=== PATIENT | male | born 1935 | race Caucasian/White ===

== ENCOUNTER → 2016-12-22 | Outpatient (CLI) | payer OTHER ==
[~2016-12-22] MED LIST: ASPI81TA82 PO; ATOR40TA PO; CEPH500C3 PO; FLUO10TA PO; HYDR-2768 PO; HYDR-3533 PO; LOSA50TA PO; RIVA20 PO
--- NOTE | 2017-01-01 10:29 | RSPPFT ---
DATE OF PROCEDURE: 12/22/16 COMMENTS: VOLUMES DYNAMIC: FVC normal; FEV1 mildly reduced. STATIC: TLC, RV and FRC normal. FLOWS: FEV1% moderately reduced; FEF 25-75 severely reduced. DIFFUSION: Moderately reduced. FLOW VOLUME LOOP: Pattern of variable intrathoracic airways obstruction. IMPRESSION: Moderately severe obstructive ventilator defect with no significant hyperinflation but with a moderate reduction in diffusion. Airways resistance is increased. Significant improvement post-bronchodilator.
== END ==
LOC: PHRSP 08:30
PROVIDERS: ATTEND Internal Medicine
DX: J44.9 Chronic obstructive pulmonary disease, unspecified (principal)
CPT/HCPCS: 94060; 94620; 94726; 94729

== ENCOUNTER 2017-04-22 10:25 | Inpatient (IN) | payer OTHER, MEDICARE ==
[2017-04-22] VITALS (14 sets, daily range): BP systolic 144–238; BP diastolic 65–109; PULSE 72–90; RESP 16–21; TEMP 97.7–99.7; O2SAT 96–100
[2017-04-22] MEDS ORDERED: SODIUM CHLOR 0.9% 1000 ML INJ 1,000 ML IV ONE ×2 (10:26→16:45)
[2017-04-22] MEDS ORDERED: ATOR40TA16 PO (10:51)
[2017-04-22] MEDS ORDERED: LOSA50TA PO (10:51)
[2017-04-22] MEDS ORDERED: HYDR25TA5 PO (10:51)
[2017-04-22] MEDS ORDERED: FLUO10TA PO (10:51)
[2017-04-22] MEDS ORDERED: ASPI-516 CHEW (10:51)
[2017-04-22] MEDS ORDERED: XARE20TA PO (10:51)
[2017-04-22 10:52] LABS: AUTOMATED NEUTROPHIL # 3.9 TH/MM3 (1.8-7.7); BASOPHIL # 0.1 TH/MM3 (0-0.2); BASOPHIL % 0.9 % (0.0-2.0); EOSINOPHIL # 0.2 TH/MM3 (0-0.4); EOSINOPHIL % 3.6 % (0.0-4.0); HEMATOCRIT 36.6 % (39.0-51.0); HEMO FLAGS DIFF FINAL; LYMPH % 20.2 % (9.0-44.0); LYMPHOCYTE # 1.3 TH/MM3 (1.0-4.8); MEAN CELL VOLUME 90.7 FL (80.0-100.0); MEAN CORPUSCULAR HEMOGLOBIN 31.9 PG (27.0-34.0); MEAN CORPUSCULAR HGB CONC 35.1 % (32.0-36.0); MONO % 13.9 % (0.0-8.0); NEUT % 61.4 % (16.0-70.0); PLATELET COUNT 192 TH/MM3 (150-450); RED BLOOD COUNT 4.03 MIL/MM3 (4.50-5.90); RED CELL DISTRIBUTION WIDTH 13.3 % (11.6-17.2); WHITE BLOOD COUNT 6.3 TH/MM3 (4.0-11.0)
[2017-04-22 10:53] LABS: I-STAT POTASSIUM 3.5 MMOL/L (3.5-4.9); I-STAT SODIUM 139 MMOL/L (138-146)
[2017-04-22] MEDS ORDERED: IODIXANOL 320 MG/ML 10 ML VIAL (for Rad CT) IVCONTRAST ONE (10:53)
--- NOTE | 2017-04-22 10:54 | RADRPT ---
EXAM DATE/TIME: 04/22/2017 10:25 [facility] COMPARISON: No previous studies available for comparison. INDICATIONS : Aphagia, left-sided gaze, right side weakness. RADIATION DOSE: 64.83 CTDIvol (mGy) This report was called by Dr. Macedo to Dr. Flores at 1049 MEDICAL HISTORY : Stroke. Carcinoma, colon. Hypertension. SURGICAL HISTORY : Tonsillectomy. ENCOUNTER: Initial ACUITY: 1 day PAIN SCALE: Non-responsive LOCATION: cranial TECHNIQUE: Multiple contiguous axial images were obtained of the head. Using automated exposure control and adj ustment of the mA and/or kV according to patient size, radiation dose was kept as low as reasonably a chievable to obtain optimal diagnostic quality images. DICOM format image data is available electro nically for review and comparison. FINDINGS: There is no evidence of intracranial hemorrhage or mass. There is extensive chronic ischemic change w ith white matter hypodensity diffusely and areas of encephalomalacia in the right frontal and right p arietal regions as well as multiple bilateral basal ganglia lacunar infarcts which all appear old. Th e ventricles are symmetric and normal. The extracranial structures are grossly benign and intact. CONCLUSION: No acute intracranial findings. Extensive chronic ischemic sequela Obi Macedo MD on April 22, 2017 at 10:51 Board Certified Radiologist. This report was verified electronically.
[2017-04-22] MEDS ORDERED: ASPIRIN 300 MG SUPP RECTAL ONE (11:00)
[2017-04-22] MEDS ORDERED: SODIUM CHLORID 0.9% 500 ML INJ 300 ML IV ONE (11:00)
[2017-04-22] MEDS ORDERED: niCARdipine INJ 25 MG in SODIUM CHLOR 0.9% 250 ML INJ 240 ML IV PRN ×2 (11:00→14:00)
[2017-04-22 11:06] LABS: APTT (PATIENT) 62.9 SEC (24.3-30.1); INTERNATIONAL NORMALIZED RATIO 1.5 RATIO; PROTHROMBIN TIME - PATIENT 15.2 SEC (9.8-11.6)
--- NOTE | 2017-04-22 11:07 | RADRPT ---
EXAM DATE/TIME: 04/22/2017 10:25 [facility] COMPARISON: CT BRAIN W/O CONTRAST, April 22, 2017, 10:25. INDICATIONS : Stroke alert; aphagia, right sided weakness. IV CONTRAST: 46 cc Visipaque (iodixanol) IV ; Cumulative dose for multiple exams. RADIATION DOSE: 14.23 CTDIvol (mGy) ; Combined studies MEDICAL HISTORY : Stroke. Carcinoma, colon. Hypertension. SURGICAL HISTORY : Tonsillectomy. ENCOUNTER: Initial ACUITY: 1 day PAIN SCALE: Non-responsive LOCATION: cranial TECHNIQUE: Volumetric scanning was performed using a multi-row detector CT scanner. The data was post processed with a variety of visualization algorithms including full volume maximum intensity projection, multi -planar sliding thin slab reformation, curved planar reformation, and surface rendering techniques. Using automated exposure control and adjustment of the mA and/or kV according to patient size, radiat ion dose was kept as low as reasonably achievable to obtain optimal diagnostic quality images. DICO M format image data is available electronically for review and comparison. FINDINGS: The left middle cerebral artery is occluded just proximal to the trifurcation region. There is faint reconstitution of flow in distal MCA branch vessels. The contralateral right MCA is normal in appeara nce. The anterior cerebrals are intact and unremarkable. The posterior circulation vessels are intact with note of origin of the right posterior cerebral artery. CONCLUSION: Left MCA occlusion. Findings were reported to Dr. Flores and Dr. Kate at 1100 hrs. Obi Macedo MD on April 22, 2017 at 11:00 Board Certified Radiologist. This report was verified electronically.
--- NOTE | 2017-04-22 11:09 | RADRPT ---
EXAM DATE/TIME: 04/22/2017 10:32 [facility] COMPARISON: No previous studies available for comparison. INDICATIONS : Stroke alert; aphagia, right side weakness. IV CONTRAST: 48 cc Visipaque (iodixanol) IV ; Cumulative dose for multiple exams. RADIATION DOSE: 14.23 CTDIvol (mGy) ; Combined studies MEDICAL HISTORY : Stroke. Carcinoma, colon. Hypertension. SURGICAL HISTORY : Tonsillectomy. ENCOUNTER: Initial ACUITY: 1 day PAIN SCALE: Non-responsive LOCATION: neck Elevated flow velocities and ICA/CCA ratios have been found to correlate with increased degrees of vessel stenosis, calculated as percentage of diameter relative to a normal segment of distal ICA/CCA. TECHNIQUE: Volumetric scanning was performed using a multirow detector CT scanner. The data was post processed with a variety of visualization algorithms including full-volume maximum intensity projection, multip lanar sliding thin-slab reformation, curved-planar reformation, and surface-rendering techniques. Us ing automated exposure control and adjustment of the mA and/or kV according to patient size, radiatio n dose was kept as low as reasonably achievable to obtain optimal diagnostic quality images. DICOM f ormat image data is available electronically for review and comparison. FINDINGS: AORTIC ARCH: There is a three-vessel origin of the great vessels from the aorta. No evidence of ostial narrowing. RIGHT CAROTID: The common carotid artery is intact. The carotid bulb has a normal configuration without ulceration o r narrowing. The internal carotid artery lumen is smooth without stenosis. The external carotid avery ry is intact. LEFT CAROTID: The common carotid artery is intact. The carotid bulb has a normal configuration without ulceration or narrowing. The internal carotid artery lumen is smooth without stenosis. The external carotid ar milvia is intact. VERTEBRALS: The vertebral arteries have a symmetric diameter. No stenotic lesions are seen. CONCLUSION: No evidence of significant carotid stenosis Obi Macedo MD on April 22, 2017 at 11:05 Board Certified Radiologist. This report was verified electronically.
--- NOTE | 2017-04-22 11:10 | PD ---
HPI Chief Complaint: Stroke Alert Time Seen by Provider: 10:26 Travel History International Travel<30 days: No Contact w/Intl Traveler<30days: No History of Present Illness HPI Patient's 82-year-old male with a history of stroke approximately 30 years ago leaving no residual deficits presents emergency department for evaluation of dense right-sided deficits as well as dense aphasia and preference for left gauge was started approximately 20 minutes prior to arrival. The patient does take Xarelto for atrial fibrillation. He is unable to provide any additional history at all. EMS does report that the patient recently had a melanoma extracted from his scalp. He also has a history of colon cancer and resection which was years ago according to his . PFSH Past Medical History Hx Anticoagulant Therapy: Yes (Xarelto) Arthritis: Yes Atrial Fibrillation: Yes Cancer: Yes (COLON 2010) Cardiovascular Problems: Yes (AF) High Cholesterol: Yes COPD: Yes Cerebrovascular Accident: Yes (1994) Diminished Hearing: No Endocrine: No Gastrointestinal Disorders: Yes (COLON CANCER) GERD: Yes Genitourinary: No Hypertension: Yes Immune Disorder: No Musculoskeletal: Yes Psychiatric: No Reproductive: No Respiratory: Yes Sleep Apnea: No Past Surgical History Abdominal Surgery: Yes (PARTIAL RESECTION OF COLON) Cholecystectomy: Yes Eye Surgery: Yes (LEFT CATARACT REMOVED) Oral Surgery: Yes (TONSILLECTOMY) Tonsillectomy: Yes Other Surgery: Yes (HYDROCEOLE SURGERY) Social History Alcohol Use: Yes (4 BEERS DAILY) Tobacco Use: No Substance Use: No Allergies-Medications (Allergen,Severity, Reaction): Coded Allergies: penicillin G (Unverified Allergy, Severe, RASH, 04/22/17) Reported Meds & Prescriptions Reported Meds & Active Scripts Active Reported Xarelto (Rivaroxaban) 20 Mg Tab 20 Mg PO DAILY Losartan (Losartan Potassium) 50 Mg Tab 50 Mg PO BID Hydrochlorothiazide 25 Mg Tab 25 Mg PO DAILY Fluoxetine (Fluoxetine HCl) 10 Mg Tab 10 Mg PO DAILY Atorvastatin (Atorvastatin Calcium) 40 Mg Tab 40 Mg PO HS Aspirin 81 Mg Chew 81 Mg CHEW DAILY Review of Systems ROS Limitations: Altered Mental Status Physical Exam Narrative GENERAL: Well-developed well-nourished. SKIN: Focused skin assessment warm/dry. HEAD: Atraumatic. Normocephalic. EYES: Pupils equal and round. No scleral icterus. No injection or drainage. ENT: No nasal bleeding or discharge. Mucous membranes pink and moist. NECK: Trachea midline. No JVD. CARDIOVASCULAR: Regular rate and rhythm. No murmur appreciated. RESPIRATORY: No accessory muscle use. Clear to auscultation. Breath sounds equal bilaterally. GASTROINTESTINAL: Abdomen soft, non-tender, nondistended. Hepatic and splenic margins not palpable. MUSCULOSKELETAL: No obvious deformities. No clubbing. No cyanosis. No edema. NEUROLOGICAL: Awake and alert. Patient will move his head from side to side but prefers left gaze and external rotation of the left. He has dense paralysis of the right upper and right lower extremity was 0 out of 5 strength. DTRs could not be elicited over the patella nor brachials. The patient does have some purposeful movements of his left upper left lower extremity but is not able to follow commands. He is densely aphasic. No obvious facial asymmetry is seen but the patient will not follow extraocular movements are commands for cranial nerve exam. He does swallow from time to time. His eyes are wide open and from time to time he appears to have some tracking of me around the room. PSYCHIATRIC: Appropriate mood and affect; insight and judgment normal. Data Data Last Documented VS Vital Signs Date Time Temp Pulse Resp B/P (MAP) Pulse Ox O2 Delivery O2 Flow Rate FiO2 04/22/17 11:14 78 16 238/105 (149) 98 Room Air 04/22/17 10:28 21 Orders Orders Activity Bed Rest (04/22/17 ) Electrocardiogram (04/22/17 ) I-Stat Creatinine (04/22/17 10:26) I-Stat Profile (04/22/17 10:26) Prothrombin Time / Inr (Pt) (04/22/17 10:26) Act Partial Throm Time (Ptt) (04/22/17 10:26) Complete Blood Count With Diff (04/22/17 10:26) Fibrinogen (04/22/17 10:26) Creatine Kinase (Cpk) (04/22/17 10:26) Troponin I (04/22/17 10:26) Drug Screen, Random Urine (04/22/17 10:26) Type And Screen (04/22/17 10:26) Ct Brain W/O Iv Contrast(Rout) (04/22/17 ) Cta Brain W Iv Contrast W 3d (04/22/17 10:26) Cta Neck W Iv Contrast W 3d (04/22/17 10:26) Consult Neurology (04/22/17 ) Blood Glucose (04/22/17 10:26) Ecg Monitoring (04/22/17 10:26) Neuro Checks Q2HX12,Q4H (04/22/17 10:26) Nursing Bedside Swallow Assess .ONCE (04/22/17 10:26) Iv Access Insert/Monitor (04/22/17 10:26) NPO (04/22/17 10:26) Oximetry (04/22/17 10:26) Oxygen Administration (04/22/17 10:26) Sodium Chlor 0.9% 1000 Ml Inj (Ns 1000 M (04/22/17 10:26) Resp Oxygen Sandeep C Titrat 1-4 L (04/22/17 10:26) Cath For Specimen (04/22/17 10:26) Iodixanol 320 Inj (Rad Ct) (Visipaque 32 (04/22/17 10:53) Sodium Chlorid 0.9% 500 Ml Inj (Ns 500 M (04/22/17 11:00) Nicardipine Inj (Cardene Inj) (04/22/17 11:00) Aspirin Supp (Aspirin Supp) (04/22/17 11:00) (Hub Use Only)Inp Phy Cons/Ref (04/22/17 ) Verapamil Inj (Isoptin Inj) (04/22/17 11:16) Admit Order (Ed Use Only) (04/22/17 ) Angiogram, Cerebral Wo Arch (04/22/17 ) Labs Laboratory Tests Test 04/22/17 10:20 White Blood Count 6.3 TH/MM3 Red Blood Count 4.03 MIL/MM3 Hemoglobin 12.8 GM/DL Bedside Hemoglobin 13.3 G/DL Hematocrit 36.6 % Bedside Hematocrit 39.0 % Mean Corpuscular Volume 90.7 FL Mean Corpuscular Hemoglobin 31.9 PG Mean Corpuscular Hemoglobin Concent 35.1 % Red Cell Distribution Width 13.3 % Platelet Count 192 TH/MM3 Mean Platelet Volume 8.5 FL Neutrophils (%) (Auto) 61.4 % Lymphocytes (%) (Auto) 20.2 % Monocytes (%) (Auto) 13.9 % Eosinophils (%) (Auto) 3.6 % Basophils (%) (Auto) 0.9 % Neutrophils # (Auto) 3.9 TH/MM3 Lymphocytes # (Auto) 1.3 TH/MM3 Monocytes # (Auto) 0.9 TH/MM3 Eosinophils # (Auto) 0.2 TH/MM3 Basophils # (Auto) 0.1 TH/MM3 CBC Comment DIFF FINAL Differential Comment Prothrombin Time 15.2 SEC Prothromb Time International Ratio 1.5 RATIO Activated Partial Thromboplast Time 62.9 SEC Fibrinogen 480 mg/dL Bedside Sodium 139 MMOL/L Bedside Potassium 3.5 MMOL/L Bedside Chloride 101 MMOL/L Bedside Blood Urea Nitrogen 20 MG/DL Bedside Creatinine 1.0 MG/DL Bedside Glucose 138 MG/DL Total Creatine Kinase 39 U/L Troponin I LESS THAN 0.02 NG/ML [facility] Medical Screen Exam Complete: Yes Emergency Medical Condition: Yes Differential Diagnosis Acute ischemic stroke, acute hemorrhagic stroke, lecture led abnormality, Xarelto status, TIA Narrative Course Patient 82-year-old male roomed emerged permit a stroke alert, and NIH score is 24. He has severe deficits. Unfortunately will not be a candidate for TPA as the patient is on Xarelto. Patient discussed with Dr. Kate at 10:30 AM he agrees the patient will not be a candidate for TPA. Noncontrast CT discussed with Dr. Macedo negative. CT angios was performed and the patient does have left MCA occlusion. After discussion with the patient's Dr. Kate and Dr. Macedo the plan is for IR intervention. The patient was taken to interventional radiology at 11:05 AM. Patient discussed with Dr. Ng for admission to [facility]. Critical Care Narrative Aggregate critical care time was 35 minutes. Time to perform other separately billable procedures was not included in the critical care time. My time did not include minutes spent treating any other patients simultaneously or on activities that did not directly contribute to the patient's treatment. The services I provided to this patient were to treat and/or prevent clinically significant deterioration that could result in: , permanent disability, intracranial hemorrhage, I provided critical care services requiring my management, as noted below: Chart data review, documentation time, medication orders and management, vital sign assessments/reviewing monitor data, ordering and reviewing lab tests, ordering and interpreting/reviewing x-rays and diagnostic studies, care of the patient and discussion of the patient with the admitting physicians. Stroke Alert NIHSS NIH Stroke Scale Result: 24 NIHSS Time Completed: 10:30 Thrombolytic Contraindications Contraindications Comment: Patient on Xarelto Diagnosis Diagnosis: Primary Impression: Arterial ischemic stroke, MCA (middle cerebral artery), left, acute Admitting Physician Requests: Admit Condition: Stable Jason Flores MD Apr 22, 2017 11:10
[2017-04-22] MEDS ORDERED: VERAPAMIL HCL 5 MG/2 ML VIAL ONE (11:16)
[2017-04-22 11:18] LABS: CREATINE KINASE 39 U/L (39-308)
--- NOTE | 2017-04-22 11:40 | MB ---
cc: MARISOLFERMIN DATE OF CONSULTATION 04/22/2017 REASON FOR CONSULTATION This is an 82-year-old right-handed man with hypertension, atrial fibrillation on Xarelto, hypercholesterolemia, colon cancer in 2010 without mets, squamous cells superficial two weeks ago taken off his forehead. He had a stroke 30 years ago, a small stroke according to his . About 10:30 this morning or so, she was out with him and then he seemed to be not acting right and they came into the ER with right hemiparesis, left gaze, driven aphasia and CTA which showed an occlusion of the left middle cerebral artery. As such, we have just sent him down to intervention for clot extraction. REVIEW OF SYSTEMS According to his , no diabetes, RI, stent, CABG, renal, hepatic, or pulmonary disease, thyroid disease lupus, ulcer, seizure. SOCIAL HISTORY He is not a smoker. He has three drinks a day. Lives with his . FAMILY HISTORY Negative cancer, seizure, or stroke. MEDICATIONS He does take the Xarelto. In the past, he was on Lovastatin, but unclear what his current meds beyond the Xarelto. PHYSICAL EXAM On exam, tele shows A. fib, blood pressure 238/102, just started on a Cardene drip. It is getting a little bit lower. 18 and 76. NECK: No carotid bruits. HEART: Regular rhythm. I do not detect a murmur. NEUROLOGIC: His eyes are driven over to the left. He has some puffiness of the right cheek when he exhales. He is 0/5 in the right upper extremity, 1/5 in the right lower extremity. He moves the left upper extremity spontaneously and a little bit on the left lower extremity. The left toe was down, the right is up. Head is turned to the left, eyes are deviated to the left. LABORATORY DATA CBC is normal. His basic metabolic profile is normal. Creatinine is 1. His CK and troponin are pending. Coags pending. CT scan of the brain was read as negative. Review of the CT, he has an old right posterior MCA infarct and white matter infarct on the right MCA territory extending cortically, some white matter changes on the left. Head CTA, left middle cerebral artery occlusion, faint reconstitution distally, right MCA is normal, posterior arteries normal. Neck CTA, normal. Review of the CTA of the neck. He does have some calcification of the internal carotid artery at its origin. There looks to be no major stenosis, I would say less than 50%, however and it is unclear if there is some calcification of the internal carotid artery intracranially or not. IMPRESSION Left MCA infarct with clot on Xarelto with a history of A. fib and a large left MCA clinical presentation. His NIH stroke scale on referral appears to be as high as 17. We did talk to his and we are going to send him down and try to extract the clot as I think that is his only hope of having any kind of significant recovery at this point. MD MERI Gill/LAVELLE /11:09 AM /11:25 AM
[2017-04-22] MEDS ORDERED: IODIXANOL 320 MG/ML 50 ML VIAL (for RAD SPEC) I-ARTERIAL ONE (12:07)
[2017-04-22] MEDS ORDERED: GLUCAGON 1 MG/ML VIAL OTHER PRN ×2 (12:15→12:45)
[2017-04-22] MEDS ORDERED: LABETALOL HCL 100 MG/20 ML VIAL IV PUSH PRN (12:15)
[2017-04-22] MEDS ORDERED: DEXTROSE 50% IN WATER 50 ML VIAL(D50) IV PUSH PRN ×2 (12:15→12:45)
[2017-04-22] MEDS ORDERED: SENNOSIDES 8.6 MG TAB PO PRN (12:30)
[2017-04-22] MEDS ORDERED: SODIUM CHLORIDE 0.9% FLUSH 10 ML FLUSH IV FLUSH PRN (12:30)
[2017-04-22] MEDS ORDERED: LACTULOSE SYRUP 20 GM/30 ML CUP PO PRN (12:30)
[2017-04-22] MEDS ORDERED: BISACODYL 10 MG SUPP RECTAL PRN (12:30)
[2017-04-22] MEDS ORDERED: ONDANSETRON HCL 4 MG/2 ML VIAL IV PUSH PRN (12:30)
[2017-04-22] MEDS ORDERED: MISCELLANEOUS NURSING INFORMATION XX SCH (12:30)
[2017-04-22] MEDS ORDERED: MORPHINE SULFATE 4 MG/ML INJ IV PUSH PRN (12:30)
[2017-04-22] MEDS ORDERED: MAGNESIUM HYDROXIDE SUSP 30 ML CUP PO PRN (12:30)
[2017-04-22] MEDS ORDERED: RESP: ALBUTEROL 2.5 MG/3 ML NEB (PRN) INH (12:30)
[2017-04-22] MEDS ORDERED: CHLORHEXIDINE GLUCONATE 2 % 1 PACK (2 CLOTHS) TOP PRN (12:30)
[2017-04-22] MEDS ORDERED: ACETAMINOPHEN/HYDROcodone 325 MG/5 MG TAB PO PRN (12:30)
--- NOTE | 2017-04-22 12:36 | HHI.HP ---
[facility] Service Critical Care Medicine Primary Care Physician Chucky Cortez MD Admission Diagnosis Acute Left MCA Stroke Diagnosis: (1) Arterial ischemic stroke, MCA (middle cerebral artery), left,acute Diagnosis: Principal (2) Hypertensive emergency without congestive heart failure Diagnosis: Principal (3) Chronic kidney disease, stage II (mild) Diagnosis: Secondary (4) Anxiety Diagnosis: Secondary (5) Erectile dysfunction Diagnosis: Secondary (6) Gastroesophageal reflux disease Diagnosis: Secondary (7) History of colon cancer Diagnosis: Secondary (8) Normocytic anemia Diagnosis: Secondary (9) History of CVA with residual deficit Diagnosis: Secondary (10) COPD (chronic obstructive pulmonary disease) Diagnosis: Secondary (11) Elevated partial thromboplastin time (PTT) Diagnosis: Principal (12) Elevated INR Diagnosis: Principal (13) Dyslipidemia Diagnosis: Principal (14) Hypercoagulable state, primary Diagnosis: Principal (15) Coronary artery disease Diagnosis: Secondary Chief Complaint: Presents after acute onset of weakness 10:30 AM today Travel History International Travel<30 Days: No Contact w/Intl Traveler <30 Da: No Traveled to Known Affected Are: No Sepsis Criteria Criteria Outcome: Meets SIRS criteria History of Present Illness This is an 82-year-old male. Date of admission 04/22/2017. 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 He presents to [facility] today as a stroke alert. Evaluated by Dr. Kate/neurology. Symptoms included right-sided hemiparesis with a left-sided gaze. Patient was hypertensive and started on nicardipine drip. Given 300 mg aspirin per rectum 1. CT brain revealed chronic ischemic changes including right frontal/parietal and cephalization old right lateral basal ganglia CVA. CT angiogram of the brain revealed occlusion the left MCA at its proximal trifurcation. origin of right [employer]OPS. Patient is brought back intervention radiology for possible stent retrieval Review of Systems ROS Limitations: Altered Mental Status Past Family Social History Allergies: Coded Allergies: penicillin G (Unverified Allergy, Severe, RASH, 04/22/17) Past Medical History Hypercoagulable state Hypertension Chronic atrial fibrillation Dyslipidemia History of colon cancer History melanoma/SCC? COPD Gastroesophageal reflux disease Depression/anxiety Chronic kidney disease stage II ED Shingles History of right frontoparietal in bilateral basal ganglia CVA with residual left upper extremity weakness/paresthesias Past Surgical History Left cataract T&A Colon resection Cholecystectomy Hydrocele Reported Medications Xarelto (Rivaroxaban) 20 Mg Tab 20 Mg PO DAILY Losartan (Losartan Potassium) 50 Mg Tab 50 Mg PO BID Hydrochlorothiazide 25 Mg Tab 25 Mg PO DAILY Fluoxetine (Fluoxetine HCl) 10 Mg Tab 10 Mg PO DAILY Atorvastatin (Atorvastatin Calcium) 40 Mg Tab 40 Mg PO HS Aspirin 81 Mg Chew 81 Mg CHEW DAILY Active Ordered Medications Reviewed in EMR Family History Positive for hypertension Social History 4 beers daily. Prior tobacco use. No IV drug use. Physical Exam Vital Signs Vital Signs Date Time Temp Pulse Resp B/P (MAP) Pulse Ox O2 Delivery O2 Flow Rate FiO2 04/22/17 11:14 78 16 238/105 (149) 98 Room Air 04/22/17 11:08 220/98 04/22/17 10:51 76 18 229/109 (149) 97 Room Air 04/22/17 10:37 97 Room Air 04/22/17 10:37 76 16 238/102 (147) 97 04/22/17 10:28 98 21 Physical Exam GENERAL: This is an 82-year-old male, resting in bed SKIN: Warm and dry. HEAD: Atraumatic. Normocephalic. EYES: Pupils equal and round. No scleral icterus. No injection or drainage. ENT: No nasal bleeding or discharge. Mucous membranes pink and moist. NECK: Trachea midline. No JVD. CARDIOVASCULAR: Regular rate and rhythm. RESPIRATORY: No accessory muscle use. Clear to auscultation. Breath sounds equal bilaterally. GASTROINTESTINAL: Abdomen soft, non-tender, nondistended. Hepatic and splenic margins not palpable. MUSCULOSKELETAL: Extremities without clubbing, cyanosis, or edema. No obvious deformities. NEUROLOGICAL: Awake and alert. No obvious cranial nerve deficits. Motor grossly within normal limits. Five out of 5 muscle strength in the arms and legs. Normal speech. PSYCHIATRIC: Appropriate mood and affect; insight and judgment normal. Laboratory Laboratory Tests Test 04/22/17 10:20 White Blood Count 6.3 Red Blood Count 4.03 Hemoglobin 12.8 Bedside Hemoglobin 13.3 Hematocrit 36.6 Bedside Hematocrit 39.0 Mean Corpuscular Volume 90.7 Mean Corpuscular Hemoglobin 31.9 Mean Corpuscular Hemoglobin Concent 35.1 Red Cell Distribution Width 13.3 Platelet Count 192 Mean Platelet Volume 8.5 Neutrophils (%) (Auto) 61.4 Lymphocytes (%) (Auto) 20.2 Monocytes (%) (Auto) 13.9 Eosinophils (%) (Auto) 3.6 Basophils (%) (Auto) 0.9 Neutrophils # (Auto) 3.9 Lymphocytes # (Auto) 1.3 Monocytes # (Auto) 0.9 Eosinophils # (Auto) 0.2 Basophils # (Auto) 0.1 CBC Comment DIFF FINAL Differential Comment Prothrombin Time 15.2 Prothromb Time International Ratio 1.5 Activated Partial Thromboplast Time 62.9 Fibrinogen 480 Bedside Sodium 139 Bedside Potassium 3.5 Bedside Chloride 101 Bedside Blood Urea Nitrogen 20 Bedside Creatinine 1.0 Bedside Glucose 138 Total Creatine Kinase 39 Troponin I LESS THAN 0.02 Result Diagram: 04/22/17 1020 Imaging Last Impressions Neck CTA 04/22/17 1026 Signed Impressions: Service Date/Time: March 10:32 - CONCLUSION: No evidence of significant carotid stenosis Obi Macedo MD Head CTA 04/22/17 1026 Signed Impressions: Service Date/Time: March 10:25 - CONCLUSION: Left MCA occlusion. Findings were reported to Dr. Flores and Dr. Kate at 1100 hrs. Obi Macedo MD Head CT 04/22/17 0000 Signed Impressions: Service Date/Time: March 10:25 - CONCLUSION: No acute intracranial findings. Extensive chronic ischemic sequela MD Kenneth Verdei VTE Risk Assessment Caprini VTE Risk Assessment: Mod/High Risk (score >= 2) Caprini Risk Assessment Model Point Value = 1 Point Value = 2 Point Value = 3 Point Value = 5 Age 41-60 Minor surgery BMI > 25 kg/m2 Swollen legs Varicose veins or History of unexplained or recurrent spontaneous Oral contraceptives or hormone replacement Sepsis (< 1 month) Serious lung disease, including pneumonia (< 1 month) Abnormal pulmonary function Acute myocardial infarction Congestive heart failure (< 1 month) History of inflammatory bowel disease Medical patient at bed rest Age 61-74 Arthroscopic surgery Major open surgery (> 45 min) Laparoscopic surgery (> 45 min) Malignancy Confined to bed (> 72 hours) Immobilizing plaster cast Central venous access Age >= 75 History of VTE Family history of VTE Factor V Leiden Prothrombin [id number] Lupus anticoagulant Anticardiolipin antibodies Elevated serum homocysteine Heparin-induced thrombocytopenia Other congenital or acquired thrombophilia Stroke (< 1 month) Elective arthroplasty Hip, pelvis, or leg fracture Acute spinal cord injury (< 1 month) Prophylaxis Regimen Total Risk Factor Score Risk Level Prophylaxis Regimen 0-1 Low Early ambulation 2 Moderate Order ONE of the following: *Sequential Compression Device (SCD) *Heparin 5000 units SQ BID 3-4 Higher Order ONE of the following medications: *Heparin 5000 units SQ TID *Enoxaparin/Lovenox 40 mg SQ daily (WT < 150 kg, CrCl > 30 mL/min) *Enoxaparin/Lovenox 30 mg SQ daily (WT < 150 kg, CrCl > 10-29 mL/min) *Enoxaparin/Lovenox 30 mg SQ BID (WT < 150 kg, CrCl > 30 mL/min) AND/OR *Sequential Compression Device (SCD) 5 or more Highest Order ONE of the following medications: *Heparin 5000 units SQ TID (Preferred with Epidurals) *Enoxaparin/Lovenox 40 mg SQ daily (WT < 150 kg, CrCl > 30 mL/min) *Enoxaparin/Lovenox 30 mg SQ daily (WT < 150 kg, CrCl > 10-29 mL/min) *Enoxaparin/Lovenox 30 mg SQ BID (WT < 150 kg, CrCl > 30 mL/min) AND *Sequential Compression Device (SCD) Assessment and Plan Assessment and Plan Neuro/Psych: Acute left MCA CVA with occlusion History of right frontal/parietal and bilateral basal ganglia CVA with residual left upper extremity paresthesias Depression/anxiety disorder NOS Seen by Dr. Kate/neurology CT brain revealed old left frontal/parietal encephalomalacia in bilateral basal ganglia CVA CTA brain revealed occlusion left MCA. right [employer] CT neck no acute occlusions Dr. Macedo - R[facility] for stent retrieval no thrombus noted Currently on aspirin 81 mg daily. Received 300 mg KS 1 in ED Goal keep systolic blood pressure less than 220/120 2-D echocardiogram ordered Hemoglobin A1c/TSH ordered PT/OT/ST evaluate and treat Follow-up MRI brain CV: Hypertensive emergency History of hypertension Dyslipidemia Coronary artery disease - nonobstructive Atrial fibrillation currently rate controlled Currently on nicardipine drip to maintain systolic blood pressure less than 220 Heart catheterization 07/[address] Mejía revealed EF 60%. Nonobstructive coronary artery disease. Home medications include losartan 50 mg twice a day and hydrochlorothiazide 25 mg daily for hypertension Home medication is atorvastatin 40 mg daily for dyslipidemia Continue aspirin 81 mg by mouth daily Resp: History COPD Nasal cannula to maintain saturations greater than or equal to 92%. At high risk for intubation Incentive spirometry while awake Scheduled with albuterol/ipratropium aerosols every 6 hours with albuterol aerosols every 2 hours as needed for dyspnea GI: Gastroesophageal reflux disease History of colon cancer status post resection 2010 Patient is currently nothing by mouth On famotidine 20 mg by mouth twice a day for gastroesophageal reflux disease Docusate sodium/senna 1 tablet twice a day for bowel regimen : History of ED Chapa catheter if indicated for accurate I's and O's in a critically ill patient Endo: Check hemoglobin A1c and TSH in a.m. Sliding-scale insulin if indicated to maintain euglycemia control 130 to 180 Renal: Chronic kidney disease stage II Creatinine currently within normal limits Monitor urine output Accurate I's and O's Heme: History of melanoma/SCC of the forehead? Recent excision 2 weeks ago Hypercoagulable state on chronic Rivaroxaban - unclear if acquired or inherited PT/PTT elevation Monitor CBC daily. Resume anticoagulation when okay with neurology Repeat coags in a.m. ID: History of shingles Monitor for infection MSK: PT/OT evaluate and treat FEN: Replace electrolytes as clinically indicated Access - Utilize peripheral IVs. Central line if indicated Prophylaxis - GI - famotidine - DVT - SCD/pharmacological prophylaxis when okay with neurology Critical Care: The total critical care time was 35 minutes. Time to perform other separately billable procedures was not included in the critical care time. Code Status Full code Discussed Condition With Leonela. ED physician Dr. Flores. Care plan discussed and all questions answered.. Problem Qualifiers (1) Erectile dysfunction: Qualified Codes: N52.9 - Male erectile dysfunction, unspecified (2) Gastroesophageal reflux disease: Qualified Codes: K21.9 - Gastro-esophageal reflux disease without esophagitis (3) COPD (chronic obstructive pulmonary disease): Qualified Codes: J43.9 - Emphysema, unspecified (4) Coronary artery disease: Qualified Codes: I25.10 - Atherosclerotic heart disease of [place] coronary artery without angina pectoris Adan Ng MD Apr 22, 2017 12:36
[2017-04-22] MEDS ORDERED: PROPOFOL 1000 MG/100 ML INJ 100 ML IV PRN (13:00)
[2017-04-22] MEDS ORDERED: fentaNYL DRIP 250 ML IV PRN (13:00)
[2017-04-22] MEDS ORDERED: ROCURONIUM INJ 50 MG/5 ML VIAL ONE (13:09)
[2017-04-22] MEDS ORDERED: ETOMIDATE 40 MG/20 ML VIAL IV PUSH ONE (13:15)
[2017-04-22] MEDS ORDERED: ROCURONIUM INJ 50 MG/5 ML VIAL IV ONE (13:15)
--- NOTE | 2017-04-22 13:37 | PD.PROCEDR ---
Procedure Note Procedure DATE: 04/22/2017 PROCEDURE: Orotracheal intubation INDICATION: Inability to protect airway status post CVA/airway protection DETAILS OF PROCEDURE The patient was placed in optimal position and preoxygenated with 100% FiO2 via bag valve mask. At the start oxygen saturation was 100%. The patient was administered 20 milligrams rocuronium IV and 50 milligrams etomidate IV. I entered the oropharynx with a size 3 Noel laryngoscope blade and obtained a grade 2 view of the airway. On single attempt a size 8.0 cuffed endotracheal tube was passed through the vocal cords. Correct tube location was confirmed with end tidal CO2 detector and by auscultating over bilateral lung gomez. The endotracheal tube was secured with adhesive tape at a depth of 24 cm at the lips. The patient was connected to the ventilator. The patient tolerated the procedure well without any apparent complications. Oxygen saturations were maintained greater than 95% all times. STAT chest x-ray pending at time of dictation. Adan Ng MD Apr 22, 2017 13:37
--- NOTE | 2017-04-22 14:37 | RADRPT ---
EXAM DATE/TIME: 04/22/2017 13:53 [facility] COMPARISON: No previous studies available for comparison. INDICATIONS : Post intubation. Stroke alert patient with a fascia and right-sided weakness. MEDICAL HISTORY : Stroke. Carcinoma, colon. Hypertension. SURGICAL HISTORY : Tonsillectomy. ENCOUNTER: Initial ACUITY: 1 day PAIN SCORE: Non-responsive. LOCATION: Bilateral chest FINDINGS: A single AP semierect view of the chest was obtained and demonstrates an endotracheal tube in place w ith the tip approximately 1 cm above the landon. There are no infiltrates or effusions. The heart siz e is within normal limits with mild atherosclerotic changes in the aorta. There is no perihilar edema . There are old healed right-sided rib fractures. The bony thorax is otherwise intact. CONCLUSION: 1. Status post intubation. 2. No acute cardiopulmonary disease. Joni Akbar MD on April 22, 2017 at 14:33 Board Certified Radiologist. This report was verified electronically.
[2017-04-22] MEDS ORDERED: THIAMINE INJ 100 MG in SODIUM CHLORIDE 0.9% INJ 100 ML IV ONE (15:00)
[2017-04-22 15:06] LABS: BLOOD GAS BASE EXCESS -2.3 mmol/L (-2-2); BLOOD GAS CARBOXYHEMOGLOBIN 0.9 % (0-4); BLOOD GAS HCO3 23 mmol/L (22-26); BLOOD GAS METHEMOGLOBIN 1.1 % (0-2); BLOOD GAS O2 HGB SATURATION 97 % (90-100); BLOOD GAS OXYGEN CONTENT 19.6 Vol % (12.0-20.0); BLOOD GAS PCO2 44 mmHg (38-42); BLOOD GAS PO2 260 mmHg (61-120); BLOOD GAS TOTAL HGB 13.9 G/DL (12.0-16.0); CRITICAL VALUE NO; FIO2 100 %; OXYGEN DEVICE VENTILATOR; TEMP CORR TO 98.6; VENT SETTINGS PRVC/AC
[2017-04-22 15:07] LABS: DRAW SITE RT RADIAL; NUMBER OF ARTERIAL PUNCTURES 1; STAT NO; ULNAR PULSE PRESENT
[2017-04-22] MEDS: niCARdipine INJ 25 MG in SODIUM CHLOR 0.9% 250 ML INJ 240 ML IV PRN ×2 (15:39→20:00)
--- NOTE | 2017-04-22 16:04 | RADRPT ---
EXAM DATE/TIME: 04/22/2017 11:10 This report includes an Addendum and supersedes previous reports for this exam. [facility] COMPARISON: No previous studies available for comparison. INDICATIONS : Patient presents with stroke in need of cerebral angiogram. Atrial fibrillation. Occlusion of left mi ddle cerebral artery on CTA. MEDICAL HISTORY : Chronic A-Fib, COPD, HTN, HLD, Colon cancer, CVA 1994, GERD, Melanoma SURGICAL HISTORY : Colon resection, Cholecystectomy ENCOUNTER: Initial ACUITY: 1 day PAIN SCORE: Nonresponsive. FLUORO TIME: 4 minutes IMAGE SERIES: 7 ACCESS SITE: Right Femoral artery CONTRAST: 40 cc Visipaque (iodixanol) Anesthesia and pain control was provided by the Anesthesia department. PROCEDURE : 1. Ultrasound-guided puncture of the right common femoral artery access site. 2. Conscious sedation with continuous EKG and Oximetry monitoring. 3. subselective catheterization, left internal carotid artery 4. Angiography of the left carotid cervical and cerebral circulation 5. Angiography of the right common femoral artery The risks, benefits and alternatives to the procedure were explained and verbal and written consent w as obtained. The site was prepped in sterile fashion. Full sterile technique was used, including ca p, mask, sterile gloves and gown and a large sterile sheet. Hand hygiene and 2% chlorhexidine and/or betadine/alcohol prep was utilized per protocol for cutaneous antisepsis. Sterile gel and sterile p robe cover were utilized for ultrasound guidance. The skin and subcutaneous tissues were infiltrated with local anesthetic solution. With ultrasound and fluoroscopic guidance the selected artery was punctured and a vascular sheath was placed A 4 Vincentian JB2 catheter was introduced and used to select the left common carotid artery. Left caroti d cervical arteriography was performed. The catheter was further manipulated up into the internal car otid artery and selective left internal carotid arteriography was performed with imaging of the brain in multiple projections. The catheter was removed. Sheath arteriography was performed to evaluate the common femoral artery fo r closure. We attempted closure using the Starclose device, however good hemostasis was not achieved and therefore manual compression was performed. Hemostasis was achieved satisfactorily. The patient t olerated the procedure well. Conscious sedation was performed with the prescribed dosages and duration as above in the presence of an independent trained radiology nurse to assist in the monitoring of the patient. EKG and oximetry remained stable throughout the procedure. FINDINGS: The left middle cerebral artery is now found to be patent. There is slight slowing of filling within a few of the parenchymal branch vessels, however perfusion is otherwise normal. No major vessel steno sis is identified. CONCLUSION: Interval spontaneous recanalization of middle cerebral artery occlusion. Catheter dir ected stroke therapy was not required. Obi Macedo MD on April 22, 2017 at 14:30 Board Certified Radiologist. This report was verified electronically. ADDENDUM: The cerebral circulation was [id number] Keron Mathis MD on April 27, 2017 at 10:49 Board Certified Radiologist. This report was verified electronically.
[2017-04-22] MEDS: RESP: ALBUTEROL 2.5 MG/IPRATROPIUM 0.5 MG NEB (SCH) INH ×2 (16:20→20:06)
[2017-04-22] MEDS: fentaNYL 2,500 MCG/NS 250 ML IV PRN (16:39)
[2017-04-22] MEDS ORDERED: INSULIN NovoLIN REGULAR SUPPLEMENTAL SCALE SQ SCH (17:00)
[2017-04-22] MEDS ORDERED: INSULIN ASPART SUPPLEMENTAL SCALE SQ SCH (17:00)
[2017-04-22] MEDS: SODIUM CHLOR 0.9% 1000 ML INJ 1,000 ML IV SCH (17:00)
[2017-04-22] MEDS: INSULIN NovoLIN REGULAR SUPPLEMENTAL SCALE SQ SCH (17:08)
--- NOTE | 2017-04-22 17:11 | PD.RAD ---
Post Procedure Progress Note Pre Procedure Diagnosis: (1) Arterial ischemic stroke, MCA (middle cerebral artery), left,acute Post Procedure Diagnosis: (1) Arterial ischemic stroke, MCA (middle cerebral artery), left,acute Procedure Date: Apr 22, 2017 Supervising Radiologist: Obi Macedo Proceduralist/Assist: Natalio Encarnacion, RT(R), Caitlin Larkin RT(R) Estimated blood loss: 10ml Anesthesia: Local, Conscious Sedation Plan of Activity Patient to Unit: Critical Care Patient Condition: Critical See PACS Report for procedural detail/treatment Vascular-Arterial Procedure Procedure 1 Procedure Site: Left Carotid Procedure(s): Angiogram Access Access Site(s): Right Femoral Artery Closure Site(s): Right manual pressure Findings: occlusion of Left MCA resolved without directed treatment Obi Macedo MD Apr 22, 2017 17:11
[2017-04-22] MEDS: hydrALAZINE HCL 20 MG/ML VIAL IV PUSH PRN (19:11)
[2017-04-22] MEDS: CHLORHEXIDINE 0.12% (ORAL KIT) 15 ML CUP MT SCH (20:00)
[2017-04-22] MEDS: PROPOFOL 1000 MG/100 ML IV PRN (21:00)
--- NOTE | 2017-04-22 22:08 | MG ---
cc: JG BUI MD Lab No: [id number] Date: 04/22/17 Age: 82 Sex: M Race: DATE OF 1935 HISTORY An 82-year-old male with history of stroke, not following commands, mental status changes, intubated. DESCRIPTION Diprivan initially turned off then resumed due to hypertension. Asymmetric left hemispheric slowing with 2-5 Hz activity, right-side. 5-7 Hz activity, 20-50 microvolts. Bursts rhythmic delta activity EPOC 38. Episodes of body shaking ___ epileptic correlation. Some upper body, head shaking, no clear epileptic activity. Some myogenic artifact at that time. Single lead EKG showing sinus rhythm. INTERPRETATION Asymmetric left hemispheric slowing related to structural lesion. No clear epileptic activity. Clinical correlation. Jg Bui MD MG/EO /9:23 PM /9:49 PM
[2017-04-22] MEDS: FAMOTIDINE 20 MG TAB PO SCH (22:20)
--- NOTE | 2017-04-22 22:20 | RADRPT ---
EXAM DATE/TIME: 04/22/2017 21:14 [facility] COMPARISON: CT BRAIN W/O CONTRAST, April 22, 2017, 10:25. INDICATIONS : CVA. MEDICAL HISTORY : Chronic A-Fib, COPD, HTN, HLD, Colon cancer, CVA 1995, GERD, Melanoma SURGICAL HISTORY : Colon resection. Cholecystectomy. Tonsillectomy. ENCOUNTER: Subsequent ACUITY: 1 day PAIN SCORE: Nonresponsive. LOCATION: cranial TECHNIQUE: Multiplanar, multisequence MRI of the brain was performed without contrast. FINDINGS: CEREBRUM: There is abnormal signal is seen on the diffusion weighted images in the posterior left frontal, left temporal and left parietal regions in the left middle cerebral artery territory consistent with acut e infarction. Abnormal signal seen in the left basal ganglia and left caudate head. There is an area of encephalomalacia involving the right parietal lobe. The ventricles are normal for age. No evidenc e of hemorrhage. No extraaxial fluid collections are seen. The pituitary gland and suprasellar cist gurpreet are normal in configuration. WHITE MATTER: There is extensive increased signal seen throughout the cerebral and pontine white matter likely rela stefan to small vessel ischemic change. POSTERIOR FOSSA: The cerebellum and brainstem are intact. The 4th ventricle is midline. The cerebellopontine angle is unremarkable. The cerebellar tonsils are normal in position. DIFFUSION IMAGING: No focal areas of restricted diffusion are seen. No evidence of acute infarction. EXTRACRANIAL: The visualized portions of the orbits and paranasal sinuses are unremarkable. CONCLUSION: 1. There is acute infarction involving the posterior left frontal, left temporal, and left parietal l obes. The area of acute infarction involves the left basal ganglia and the left caudate head. 2. Increased signal throughout the cerebral and pontine white matter likely secondary to small vessel ischemic change. 3. Right parietal encephalomalacia. Obi Live MD on April 22, 2017 at 22:15 Board Certified Radiologist. This report was verified electronically.
[2017-04-22] MEDS: LOSARTAN 50 MG TAB PO SCH (22:21)
[2017-04-22] MEDS: DOCUSATE SODIUM 50 MG/SENNA 8.6 MG TAB PO SCH (22:21)
[2017-04-22] MEDS: SODIUM CHLORIDE 0.9% FLUSH 10 ML FLUSH IV FLUSH SCH (22:21)
[2017-04-22] MEDS: ATORVASTATIN 40 MG TAB PO SCH (22:21)
[2017-04-22] MEDS ORDERED: LORazepam 2 MG/ML VIAL IV PUSH PRN (22:30)
[2017-04-22] MEDS ORDERED: FOSPHENYTOIN INJ 1,000 MGPE in SODIUM CHLORIDE 0.9% INJ 50 ML IV ONE (23:00)
[2017-04-23] VITALS (18 sets, daily range): BP systolic 111–199; BP diastolic 53–78; PULSE 64–91; RESP 16–21; TEMP 98.7–101.4; O2SAT 100
[2017-04-23] MEDS: PROPOFOL 1000 MG/100 ML IV PRN (02:26)
[2017-04-23] MEDS: SODIUM CHLOR 0.9% 1000 ML INJ 1,000 ML IV SCH (02:28)
[2017-04-23] MEDS: fentaNYL 2,500 MCG/NS 250 ML IV PRN (02:28)
[2017-04-23] MEDS: RESP: ALBUTEROL 2.5 MG/IPRATROPIUM 0.5 MG NEB (SCH) INH ×4 (03:31→19:58)
[2017-04-23] MEDS: CHLORHEXIDINE GLUCONATE 2 % 1 PACK (2 CLOTHS) TOP SCH (04:00)
[2017-04-23 04:50] LABS: AUTOMATED NEUTROPHIL # 7.3 TH/MM3 (1.8-7.7); BASOPHIL % 0.3 % (0.0-2.0); EOSINOPHIL % 0.1 % (0.0-4.0); HEMATOCRIT 35.5 % (39.0-51.0); HEMO FLAGS DIFF FINAL; LYMPH % 8.4 % (9.0-44.0); LYMPHOCYTE # 0.8 TH/MM3 (1.0-4.8); MEAN CELL VOLUME 93.4 FL (80.0-100.0); MEAN CORPUSCULAR HGB CONC 33.2 % (32.0-36.0); MONO % 16.8 % (0.0-8.0); NEUT % 74.4 % (16.0-70.0); PLATELET COUNT 176 TH/MM3 (150-450); RED CELL DISTRIBUTION WIDTH 13.6 % (11.6-17.2); WHITE BLOOD COUNT 9.9 TH/MM3 (4.0-11.0)
[2017-04-23 05:13] LABS: ALT (GPT) 17 U/L (12-78); ANION GAP 8 MEQ/L (5-15); AST (GOT) 20 U/L (15-37); BICARBONATE 25.5 MEQ/L (21.0-32.0); BLOOD UREA NITROGEN 17 MG/DL (7-18); CHLORIDE 107 MEQ/L (98-107); GLOMERULAR FILTRATION RATE 71 ML/MIN (>89); MAGNESIUM 1.4 MG/DL (1.5-2.5); SODIUM (NA) 140 MEQ/L (136-145)
[2017-04-23 05:24] LABS: ALKALINE PHOSPHATASE 71 U/L (45-117); HDL CHOLESTEROL 63.4 MG/DL (40.0-60.0); LDL CHOLESTEROL 54 MG/DL (0-99); TOTAL BILIRUBIN ADULT 0.6 MG/DL (0.2-1.0)
[2017-04-23] MEDS: INSULIN NovoLIN REGULAR SUPPLEMENTAL SCALE SQ SCH ×4 (06:00→18:00)
[2017-04-23] MEDS: LOSARTAN 50 MG TAB PO SCH (10:17)
[2017-04-23] MEDS: DOCUSATE SODIUM 50 MG/SENNA 8.6 MG TAB PO SCH ×2 (10:17→22:48)
[2017-04-23] MEDS: RIVAROXABAN 20 MG TAB PO SCH (10:18)
[2017-04-23] MEDS: FLUoxetine HCL 10 MG CAP PO SCH (10:18)
[2017-04-23] MEDS: ASPIRIN 81 MG CHEW TAB PO SCH (10:18)
[2017-04-23] MEDS: FAMOTIDINE 20 MG TAB PO SCH ×2 (10:19→22:47)
[2017-04-23] MEDS: HYDROCHLOROTHIAZIDE 25 MG TAB PO SCH (10:19)
[2017-04-23] MEDS: CHLORHEXIDINE 0.12% (ORAL KIT) 15 ML CUP MT SCH ×2 (10:20→22:53)
[2017-04-23] MEDS: SODIUM CHLORIDE 0.9% FLUSH 10 ML FLUSH IV FLUSH SCH ×2 (10:20→22:54)
[2017-04-23] MEDS: ACETAMINOPHEN 325 MG TAB PO PRN ×2 (10:52→23:15)
[2017-04-23 11:47] LABS: HEMOGLOBIN A1a 1.1 %; HEMOGLOBIN A1b 1.7 %; HEMOGLOBIN Ao 84.6 %; HEMOGLOBIN LA1C 2.2 %; HEMOGLOBIN P3 5.6 %
--- NOTE | 2017-04-23 11:58 | HHI.CCPN ---
Subjective Remarks/Hospital Course Hospital Course: This is an 82-year-old male. Date of admission 04/22/2017. 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 He presents to [facility] today as a stroke alert. Evaluated by Dr. Kate/neurology. Symptoms included right-sided hemiparesis with a left-sided gaze. Patient was hypertensive and started on nicardipine drip. Given 300 mg aspirin per rectum 1. CT brain revealed chronic ischemic changes including right frontal/parietal and cephalization old right lateral basal ganglia CVA. CT angiogram of the brain revealed occlusion the left MCA at its proximal trifurcation. 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 Patient is brought back intervention radiology for possible stent retrieval Subjective: 04/23: intubated yesterday. still encephalopathic. need to watch carefully, going into swell window. neuro exam stable from yesterday per report. IR yesterday performed with patent MCA flow on angio. no intervention performed. Objective Vital Signs Date Time Temp Pulse Resp B/P (MAP) Pulse Ox O2 Delivery O2 Flow Rate FiO2 04/23/17 08:19 100 40 04/23/17 06:00 77 04/23/17 04:00 100.1 16 134/62 (86) 04/22/17 19:00 Mechanical Ventilator Intake and Output 04/23/17 04/23/17 04/24/17 08:00 16:00 00:00 Intake Total 1000 ml Output Total 625 ml Balance 375 ml Result Diagram: 04/23/17 0415 04/23/17 0415 Other Results Laboratory Tests Test 04/22/17 14:54 Blood Gas Puncture Site RT RADIAL Blood Gas Patient Temperature 98.6 Blood Gas HCO3 23 mmol/L (22-26) Blood Gas Base Excess -2.3 mmol/L (-2-2) Blood Gas Oxygen Saturation 97 % (90-100) Arterial Blood pH 7.33 (7.380-7.420) Arterial Blood Partial Pressure CO2 44 mmHg (38-42) Arterial Blood Partial Pressure O2 260 mmHg (61-120) Arterial Blood Oxygen Content 19.6 Vol % (12.0-20.0) Arterial Blood Carboxyhemoglobin 0.9 % (0-4) Arterial Blood Methemoglobin 1.1 % (0-2) Blood Gas Hemoglobin 13.9 G/DL (12.0-16.0) Oxygen Delivery Device VENTILATOR Blood Gas Ventilator Setting PRVC/AC Blood Gas Inspired Oxygen 100 % Imaging Last Impressions Neck CTA 04/22/17 1026 Signed Impressions: Service Date/Time: March 10:32 - CONCLUSION: No evidence of significant carotid stenosis Obi Macedo MD Head CTA 04/22/17 1026 Signed Impressions: Service Date/Time: March 10:25 - CONCLUSION: Left MCA occlusion. Findings were reported to Dr. Flores and Dr. Kate at 1100 hrs. Obi Macedo MD Head CT 04/22/17 0000 Signed Impressions: Service Date/Time: March 10:25 - CONCLUSION: No acute intracranial findings. Extensive chronic ischemic sequela Obi Macedo MD Objective Remarks GENERAL: elderly male, lying in bed, intubated, encephalopathic. SKIN: Warm and dry. HEAD: Atraumatic. Normocephalic. EYES: Pupils equal and round. No scleral icterus. No injection or drainage. ENT: No nasal bleeding or discharge. Mucous membranes pink and moist. NECK: Trachea midline. No JVD. CARDIOVASCULAR: Regular rate and rhythm. RESPIRATORY: intubated, full support. PRVC. GASTROINTESTINAL: Abdomen soft, non-tender, nondistended. no guarding. MUSCULOSKELETAL: Extremities without clubbing, cyanosis, or edema. No obvious deformities. NEUROLOGICAL: RASS -4. weakly withdraws to pain. does not follow commands. pupils equal, sluggishly reactive. A/P Assessment and Plan Assessment: 82yM s/p large left MCA CVA. given large distribution of ischemic brain, fairly poor prognosis. unable to be completely intervened upon. continue frequent neuro checks. permissive hypertension. 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 Kate/neurology CT brain revealed old left frontal/parietal encephalomalacia in bilateral basal ganglia CVA CTA brain revealed occlusion left MCA. right TECH BRAZER TESTER CT neck no acute occlusions Dr. Macedo - IR for stent retrieval no thrombus noted Currently on aspirin 81 mg daily. Received 300 mg NE 1 in ED Goal keep systolic blood pressure less than 220/120, goal sbp 140 - 180. 2-D echocardiogram ordered Hemoglobin A1c/TSH ordered PT/OT/ST evaluate and treat CV: Hypertensive emergency History of hypertension Dyslipidemia Coronary artery disease - nonobstructive Atrial fibrillation currently rate controlled currently off cardene drip meeting pressure goals. Heart catheterization 07/[address] Mejía revealed EF 60%. Nonobstructive coronary artery disease. Home medications include losartan 50 mg twice a day and hydrochlorothiazide 25 mg daily for hypertension Home medication is atorvastatin 40 mg daily for dyslipidemia Continue aspirin 81 mg by mouth daily Resp: History COPD Acute hypoxic and hypercarbic respiratory failure wean fio2 for goal spo2 > 90% daily sbt's no extubation until mental status improves. intubated 04/22 for declining mental status and hypoxia. GI: Gastroesophageal reflux disease History of colon cancer status post resection 2010 Acute protein calorie malnutrition- severe. place DHT and start TF. On famotidine 20 mg by mouth twice a day for gastroesophageal reflux disease Docusate sodium/senna 1 tablet twice a day for bowel regimen : History of ED Chapa catheter if indicated for accurate I's and O's in a critically ill patient Endo: Check hemoglobin A1c and TSH in a.m. Sliding-scale insulin if indicated to maintain euglycemia control 130 to 180 Renal: Chronic kidney disease stage II Creatinine currently within normal limits Monitor urine output Accurate I's and O's Heme: History of melanoma/SCC of the forehead? Recent excision 2 weeks ago Hypercoagulable state on chronic Rivaroxaban - unclear if acquired or inherited PT/PTT elevation Monitor CBC daily. Resume anticoagulation when okay with neurology ID: History of shingles Monitor for infection MSK: PT/OT evaluate and treat FEN: Replace electrolytes as clinically indicated Access - Utilize peripheral IVs. Central line if indicated Prophylaxis - GI - famotidine - DVT - SCD Critical Care: The total critical care time was 41 minutes. Time to perform other separately billable procedures was not included in the critical care time. Butch Sommers MD Apr 23, 2017 11:58
--- NOTE | 2017-04-23 14:09 | PD.CONS ---
Consult Service Palliative Care Consult Requested By Dr. Adolph Sommers . Primary Care Physician Chucky Cortez MD . Reason for Consultation a. To assist with evaluation and management of symptoms including: Dyspnea , dysphagia b. To assist medical decision maker(s) with: better understanding of current medical conditions; weighing benefits/burdens of medical treatment options; making medical treatment decisions. . HPI History of Present Illness This 82-year-old male, with a past history of hypertension, COPD, chronic atrial fibrillation, and depression, has been on both Xarelto and aspirin for quite some time. 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 The patient's is not sure if he also stopped the aspirin then. All of his medicines including the Xarelto were restarted the day after the skin surgery and continued each day. The patient had been having occasional "giving out" of his right leg when walking, and the notes that it "buckled under him" intermittently for the past month. However, he was able to walk independently and without always using his cane. On the day of this admission, the patient had had some routine lab work done, then went out for breakfast with his . As they were leaving the restaurant , the patient suddenly had an unusual look on his face, a facial droop, and he was unable to speak. 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 He has remained on the ventilator and with propofol/fentanyl sedation since then. Other providers' exams indicate flaccidity of the right arm and leg, and the patient's nurse today reports that the patient withdrew his left side with pain , and "slightly withdrew" the right side. Palliative Care was consulted to assist with symptom management, and to enter into discussions with the patient's family regarding his current illnesses, the prognosis, and the benefits and burdens of the various treatment choices. . Function/Cognitive Trajectory The patient was functioning independently and was cognitively sharp prior to this stroke. In fact, he was still doing bathroom and kitchen renovations on his own within the few months prior to this admission. . Review of Systems ROS Limitations: Clinical Condition (history per medical records and her spouse ), Intubated, Altered Mental Status Constitutional: DENIES: Weight loss Endocrine: DENIES: Polyuria Eyes: DENIES: Eye inflammation Ears, nose, mouth, throat: DENIES: Epistaxis Respiratory: DENIES: Cough, Shortness of breath Cardiovascular: DENIES: Chest pain, Dyspnea on Exertion, Lower Extremity Edema Gastrointestinal: DENIES: Bloody stools, Constipation, Diarrhea, Vomiting, Vomiting blood Genitourinary: DENIES: Hematuria Musculoskeletal: DENIES: Joint Swelling, Back pain, Neck pain Integumentary: DENIES: Rash Hematologic/Lymphatics: DENIES: Bruising Immunologic/Allergic: DENIES: Urticaria Neurologic: COMPLAINS OF: Localized weakness (right leg was slightly weak for a month), DENIES: Headache, Seizures Psychiatric: COMPLAINS OF: Depression (history of), DENIES: Hallucinations, Agitation Past Family Social History Coded Allergies: penicillin G (Unverified Allergy, Severe, RASH, 04/22/17) Past Medical History * Hypertension * COPD * Hyperlipidemia * Depression * Chronic atrial fibrillation * Squamous cell cancer, excised from forehead 2 weeks ago * Chronic kidney disease * Colon cancer with resection 2011 . Past Surgical History * Tonsils * Cataract * Cholecystectomy * Sigmoid colectomy and anastomosis 2011 * Hydrocele . Reported Medications Reported Meds & Active Scripts Active Reported Xarelto (Rivaroxaban) 20 Mg Tab 20 Mg PO DAILY Losartan (Losartan Potassium) 50 Mg Tab 50 Mg PO BID Hydrochlorothiazide 25 Mg Tab 25 Mg PO DAILY Fluoxetine (Fluoxetine HCl) 10 Mg Tab 10 Mg PO DAILY Atorvastatin (Atorvastatin Calcium) 40 Mg Tab 40 Mg PO HS Aspirin 81 Mg Chew 81 Mg CHEW DAILY . Current Medications Medications (Trade) Dose Ordered Sig/Yanci Route Start Time Stop Time Status Last Admin (Aspirin Chew) 81 mg DAILY PO 04/23/17 09:00 04/23/17 10:18 (Lipitor) 40 mg HS PO 04/22/17 21:00 04/22/17 22:21 (PROzac) 10 mg DAILY PO 04/23/17 09:00 04/23/17 10:18 (Hydrodiuril) 25 mg DAILY PO 04/23/17 09:00 04/23/17 10:19 (Cozaar) 50 mg BID PO 04/22/17 21:00 04/23/17 10:17 (NS Flush) 2 ml UNSCH PRN IV FLUSH 04/22/17 12:30 (NS Flush) 2 ml BID IV FLUSH 04/22/17 21:00 04/23/17 10:20 (Tylenol) 650 mg Q6H PRN PO 04/22/17 12:30 04/23/17 10:52 ([place]robe 5-325 Mg) 1 tab Q4H PRN PO 04/22/17 12:30 (Morphine Inj) 2 mg Q2H PRN IV PUSH 04/22/17 12:30 (Pepcid) 20 mg Q12HR PO 04/22/17 21:00 04/23/17 10:19 (Zofran Inj) 4 mg Q6H PRN IV PUSH 04/22/17 12:30 (Duoneb Neb) 1 ampule Q6HR NEB INH 04/22/17 16:00 04/23/17 08:19 (Albuterol Neb) 2.5 mg Q2HR NEB PRN INH 04/22/17 12:30 Miscellaneous Information 1 Q361D XX 04/22/17 12:30 (Chlorhexidine 2% Cloth) 3 pack Taper DAILY@04 TOP 04/23/17 04:00 04/19/18 03:59 04/23/17 04:00 (Chlorhexidine 2% Cloth) 3 pack UNSCH PRN TOP 04/22/17 12:30 (Tatum-Colace) 1 tab BID PO 04/22/17 21:00 04/23/17 10:17 (Milk Of Magnesia Liq) 30 ml Q12H PRN PO 04/22/17 12:30 (Senokot) 17.2 mg Q12H PRN PO 04/22/17 12:30 (Dulcolax Supp) 10 mg DAILY PRN RECTAL 04/22/17 12:30 (Lactulose Liq) 30 ml DAILY PRN PO 04/22/17 12:30 (D50w (Vial) Inj) 50 ml UNSCH PRN IV PUSH 04/22/17 12:45 (Glucagon Inj) 1 mg UNSCH PRN OTHER 04/22/17 12:45 Thiamine HCl 100 mg/Sodium Chloride 101 ml @ 101 mls/hr Q24H IV 04/23/17 15:00 04/25/17 14:59 Nicardipine HCl 25 mg/Sodium Chloride 250 ml @ 50 mls/hr TITRATE PRN IV 04/22/17 15:15 04/22/17 20:00 (Peridex 0.12% Liq) 15 ml BID@08,20 MT 04/22/17 20:00 04/23/17 10:20 (Trandate Inj) 10 mg Q1HR PRN IV PUSH 04/22/17 15:00 (Apresoline Inj) 10 mg Q1HR PRN IV PUSH 04/22/17 15:00 04/22/17 19:11 (Xarelto) 20 mg DAILY PO 04/23/17 09:00 04/23/17 10:18 Propofol 100 ml @ 2.247 mls/ hr TITRATE PRN IV 04/22/17 15:00 04/23/17 02:26 Fentanyl Citrate 250 ml @ 5 mls/hr TITRATE PRN IV 04/22/17 15:15 04/23/17 02:28 (NovoLIN R SUPPLEMENTAL SCALE) 1 Q6HR SQ 04/22/17 18:00 04/22/17 17:08 (Ativan Inj) 1 mg Q15M PRN IV PUSH 04/22/17 22:30 Family History The patient's son at age 52, patient's of drug abuse. The patient's mother at age 94 of "old age," and his father at age 75 of heart disease. There is no family history of stroke. . Substance Use Tobacco: None Alcohol: 2 or 3 per day Prescription med abuse: None Illicits: None . Psychosocial History The patient was born and raised in the [place], [place], and moved to [place] in 2002 when he retired. He currently lives with his . He has been twice, currently for 27 years. He had 4 children, one is ; the other 3 live in [place] in [place] and have been estranged from the patient for quite some time. 2 of those children do occasionally communicate with the patient and his spouse. 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 . Spiritual/Cultural Factors The patient is Cheondoism, is closely affiliated with the "[facility]" [place], and the dairy feed mixing operator has already visited the patient here. . Living Will: Completed, but not made available Health Care Surrogate: Never completed Durable Power of Preschool Director: Never completed Family/friends goals: The patient's spouse wants to continue aggressive care for now, at least until it is "100% certain" that there will be no meaningful neurologic improvement from this stroke. She says she is certain that the patient would not want to be kept alive if meaningful improvement is not realized. . Ethical and Legal Issues There are no ethical issues that would impact his care or decision-making at this time. The patient lacks capacity for decision-making, and it is unlikely that he will regain that capacity. The patient's Leonela is the proxy decision-maker. . Physical Exam Vital Signs Date Time Temp Pulse Resp B/P (MAP) Pulse Ox O2 Delivery O2 Flow Rate FiO2 04/23/17 12:00 74 04/23/17 11:58 100 40 04/23/17 10:00 74 04/23/17 08:19 100 40 04/23/17 08:00 70 04/23/17 07:00 100 Mechanical Ventilator 50 04/23/17 06:00 77 04/23/17 04:11 100 50 04/23/17 04:00 50 04/23/17 04:00 100.1 74 16 134/62 (86) 100 04/23/17 04:00 74 04/23/17 02:00 78 04/23/17 00:04 100 50 04/23/17 00:00 82 04/23/17 00:00 100.5 82 16 187/75 (112) 100 04/23/17 00:00 70 04/22/17 22:00 90 04/22/17 20:42 100 100 04/22/17 20:19 100 60 04/22/17 20:00 99.7 90 19 169/73 (105) 100 04/22/17 20:00 80 04/22/17 20:00 90 04/22/17 20:00 100 217/90 04/22/17 19:00 100 Mechanical Ventilator 80 04/22/17 18:00 89 04/22/17 16:20 100 80 04/22/17 16:00 80 04/22/17 16:00 98.1 76 19 144/65 (91) 100 04/22/17 16:00 72 04/22/17 15:39 79 161/65 04/22/17 14:00 76 Exam CONSTITUTIONAL/GENERAL: This is an adequately nourished patient, in no apparent distress, mechanical ventilation, sedation. TUBES/LINES/DRAINS: SCDs, IV access, endotracheal tube, OG tube, Chapa SKIN: No jaundice, rashes, there is a healing surgical site on his upper forehead where the SCC was excised 2 weeks ago. Ecchymoses on upper extremities. No wounds seen anteriorly. Skin temperature appropriate. Not diaphoretic. HEAD: Atraumatic. Normocephalic. EYES: Pupils equal and 1-2 mm each; they're too small for me to tell if they are reactive. o scleral icterus. No injection or drainage. Fundi not examined. ENT: Nose without bleeding or purulent drainage. NECK: Trachea midline. Supple, nontender. No palpable thyroid enlargement or nodularity. CARDIOVASCULAR: Irregularly irregular without murmurs, gallops, or rubs. No JVD. Peripheral pulses diminished. RESPIRATORY/CHEST: Symmetric, unlabored respirations. Clear to auscultation. Breath sounds equal bilaterally. No wheezes, rales, or rhonchi. GASTROINTESTINAL: Abdomen soft, non-tender, nondistended. No hepato-splenomegaly , or palpable masses. No guarding. Bowel sounds present. GENITOURINARY: Without palpable bladder distension. Chapa catheter in place. MUSCULOSKELETAL: Extremities without clubbing, cyanosis, or edema. No joint tenderness or effusion noted. No calf tenderness. No mottling or clubbing. LYMPHATICS: No palpable cervical or supraclavicular adenopathy. NEUROLOGICAL: Essentially unresponsive, and I see no response to pain PSYCHIATRIC: Unable to evaluate due to clinical condition . Diagnostic Tests Laboratory Laboratory Tests Test 04/22/17 10:20 04/22/17 14:54 04/23/17 04:00 04/23/17 04:15 White Blood Count 6.3 TH/MM3 (4.0-11.0) 9.9 TH/MM3 (4.0-11.0) Red Blood Count 4.03 MIL/MM3 (4.50-5.90) 3.80 MIL/MM3 (4.50-5.90) Hemoglobin 12.8 GM/DL (13.0-17.0) 11.8 GM/DL (13.0-17.0) Bedside Hemoglobin 13.3 G/DL (12.0-17.0) Hematocrit 36.6 % (39.0-51.0) 35.5 % (39.0-51.0) Bedside Hematocrit 39.0 % (38.0-51.0) Mean Corpuscular Volume 90.7 FL (80.0-100.0) 93.4 FL (80.0-100.0) Mean Corpuscular Hemoglobin 31.9 PG (27.0-34.0) 31.0 PG (27.0-34.0) Mean Corpuscular Hemoglobin Concent 35.1 % (32.0-36.0) 33.2 % (32.0-36.0) Red Cell Distribution Width 13.3 % (11.6-17.2) 13.6 % (11.6-17.2) Platelet Count 192 TH/MM3 (150-450) 176 TH/MM3 (150-450) Mean Platelet Volume 8.5 FL (7.0-11.0) 8.1 FL (7.0-11.0) Neutrophils (%) (Auto) 61.4 % (16.0-70.0) 74.4 % (16.0-70.0) Lymphocytes (%) (Auto) 20.2 % (9.0-44.0) 8.4 % (9.0-44.0) Monocytes (%) (Auto) 13.9 % (0.0-8.0) 16.8 % (0.0-8.0) Eosinophils (%) (Auto) 3.6 % (0.0-4.0) 0.1 % (0.0-4.0) Basophils (%) (Auto) 0.9 % (0.0-2.0) 0.3 % (0.0-2.0) Neutrophils # (Auto) 3.9 TH/MM3 (1.8-7.7) 7.3 TH/MM3 (1.8-7.7) Lymphocytes # (Auto) 1.3 TH/MM3 (1.0-4.8) 0.8 TH/MM3 (1.0-4.8) Monocytes # (Auto) 0.9 TH/MM3 (0-0.9) 1.7 TH/MM3 (0-0.9) Eosinophils # (Auto) 0.2 TH/MM3 (0-0.4) 0.0 TH/MM3 (0-0.4) Basophils # (Auto) 0.1 TH/MM3 (0-0.2) 0.0 TH/MM3 (0-0.2) CBC Comment DIFF FINAL DIFF FINAL Differential Comment Prothrombin Time 15.2 SEC (9.8-11.6) Prothromb Time International Ratio 1.5 RATIO Activated Partial Thromboplast Time 62.9 SEC (24.3-30.1) Fibrinogen 480 mg/dL (227-377) Bedside Sodium 139 MMOL/L (138-146) Bedside Potassium 3.5 MMOL/L (3.5-4.9) Bedside Chloride 101 MMOL/L (98-109) Bedside Blood Urea Nitrogen 20 MG/DL (8-26) Bedside Creatinine 1.0 MG/DL (0.8-1.3) Bedside Glucose 138 MG/DL (60-95) Total Creatine Kinase 39 U/L (39-308) Troponin I LESS THAN 0.02 NG/ML Blood Gas Puncture Site RT RADIAL Blood Gas Patient Temperature 98.6 Blood Gas HCO3 23 mmol/L (22-26) Blood Gas Base Excess -2.3 mmol/L (-2-2) Blood Gas Oxygen Saturation 97 % (90-100) Arterial Blood pH 7.33 (7.380-7.420) Arterial Blood Partial Pressure CO2 44 mmHg (38-42) Arterial Blood Partial Pressure O2 260 mmHg (61-120) Arterial Blood Oxygen Content 19.6 Vol % (12.0-20.0) Arterial Blood Carboxyhemoglobin 0.9 % (0-4) Arterial Blood Methemoglobin 1.1 % (0-2) Blood Gas Hemoglobin 13.9 G/DL (12.0-16.0) Oxygen Delivery Device VENTILATOR Blood Gas Ventilator Setting PRVC/AC Blood Gas Inspired Oxygen 100 % Nasal Screen MRSA (PCR) MRSA NOT DETECTED (NOT Blood Urea Nitrogen 17 MG/DL (7-18) Creatinine 1.00 MG/DL (0.60-1.30) Random Glucose 103 MG/DL (74-106) Total Protein 6.5 GM/DL (6.4-8.2) Albumin 2.9 GM/DL (3.4-5.0) Calcium Level 7.8 MG/DL (8.5-10.1) Phosphorus Level 4.4 MG/DL (2.5-4.9) Magnesium Level 1.4 MG/DL (1.5-2.5) Alkaline Phosphatase 71 U/L (45-117) Aspartate Amino Transf (AST/SGOT) 20 U/L (15-37) Alanine Aminotransferase (ALT/SGPT) 17 U/L (12-78) Total Bilirubin 0.6 MG/DL (0.2-1.0) Sodium Level 140 MEQ/L (136-145) Potassium Level 4.0 MEQ/L (3.5-5.1) Chloride Level 107 MEQ/L (98-107) Carbon Dioxide Level 25.5 MEQ/L (21.0-32.0) Anion Gap 8 MEQ/L (5-15) Estimat Glomerular Filtration Rate 71 ML/MIN (>89) Hemoglobin A1c 5.5 % (4.3-6.0) Lactic Acid Level 2.1 mmol/L (0.4-2.0) Triglycerides Level 37 MG/DL (42-150) Cholesterol Level 125 MG/DL (120-200) LDL Cholesterol 54 MG/DL (0-99) HDL Cholesterol 63.4 MG/DL (40.0-60.0) Cholesterol/HDL Ratio 1.97 RATIO Thyroid Stimulating Hormone 3rd Gen 2.890 uIU/ML (0.358-3.740) Result Diagram: 04/23/17 0415 04/23/17 0415 Imaging Last Impressions Neck CTA 04/22/17 1026 Signed Impressions: Service Date/Time: March 10:32 - CONCLUSION: No evidence of significant carotid stenosis Obi Macedo MD Head CTA 04/22/17 1026 Signed Impressions: Service Date/Time: March 10:25 - CONCLUSION: Left MCA occlusion. Findings were reported to Dr. Flores and Dr. Kate at 1100 hrs. Obi Macedo MD Head CT 04/22/17 0000 Signed Impressions: Service Date/Time: March 10:25 - CONCLUSION: No acute intracranial findings. Extensive chronic ischemic sequela Obi Macedo MD Chest X-Ray 04/22/17 0000 Signed Impressions: Service Date/Time: March 13:53 - CONCLUSION: 1. Status post intubation. 2. No acute cardiopulmonary disease. Joni Akbar MD Cerebral Arteriogram 04/22/17 0000 Signed Impressions: Service Date/Time: March 11:10 - CONCLUSION: Interval spontaneous recanalization of middle cerebral artery occlusion. Catheter directed stroke therapy was not required. Obi Macedo MD Brain MRI 04/22/17 0000 Signed Impressions: Service Date/Time: March 21:14 - CONCLUSION: 1. There is acute infarction involving the posterior left frontal, left temporal, and left parietal lobes. The area of acute infarction involves the left basal ganglia and the left caudate head. 2. Increased signal throughout the cerebral and pontine white matter likely secondary to small vessel ischemic change. 3. Right parietal encephalomalacia. Obi Live MD Procedures INTUBATION 04/22/17 Interventional Radiology 04/22/17 . Patient/Family Conference Present at Family Conference: Patient's spouse Leonela . Family Conference Time (mins): 52 Family Conference Location: Bedside Issues Discussed: * Palliative care role, purpose, approach * Additional medical, psychosocial, and spiritual history * Patients general health, functional status, and cognitive changes in the months leading up to the current hospitalization * Patient/family understanding of the current medical problems * Patient/family understanding of prognosis * Patients goals of care as best understood from advance directives and/or conversations and/or values * Current medical treatment options and benefits/burdens of those options * Likely scenarios comparing ongoing aggressive care with a transition to comfort measures only * Questions answered to the best of my ability * Palliative care contact information provided The patient's spouse wants to continue aggressive care for now, at least until it is "100% certain" that there will be no meaningful neurologic improvement from this stroke. She says she is certain that the patient would not want to be kept alive if meaningful improvement is not realized. . 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 Spiritual: The patient is Che[employer]ism, is closely affiliated with the "[facility]" [place], and the dairy feed mixing operator has already visited the patient here. Legal: The patient lacks capacity for decision-making, and it is unlikely that he will regain that capacity. The patient's Leonela is the proxy decision -maker. Ethical issues impacting care: None . Important Contacts Spouse: Leonela Rojas Home: . Prognosis The patient's prognosis is poor unless there is a somewhat miraculous neurologic recovery. He has suffered a major stroke. He will be a candidate for hospice services when the goals become comfort oriented. . Code Status: Full Code Plan * FULL CODE (at least until it becomes certain that significant neurologic recovery is unlikely) * DECISION-MAKING: The patient lacks capacity for decision-making, and it is unlikely that he will regain that capacity. The patient's Leonela is the proxy decision-maker. * GOALS: The patient's spouse wants to continue aggressive care for now, at least until it is "100% certain" that there will be no meaningful neurologic improvement from this stroke. She says she is certain that the patient would not want to be kept alive if meaningful improvement is not realized, particularly since this patient was so physically robust prior to this stroke. * SYMPTOMS: Any dyspnea is being managed with mechanical ventilation; there are no obvious signs of pain. I have no additional medication recommendations at this time. * Spiritual support is being provided by the patient's dairy feed mixing operator and deacon from [facility]. * We will reassess on Wednesday... . Time Spent Total Floor Time (mins): 82 Face to Face Time (mins): 62 >50% Counseling/Coord of Care: Yes (d/w Dr. Sommers) Thank you for the opportunity to participate in the care of Mr. Rojas. Attestation To help prompt me to consider important information that might be impacting today's encounter and assessment, information from prior notes written by myself or my colleagues may have been "brought forward" into today's note. My signature on this note, however, is an attestation that I personally performed the exam, history, and/or decision-making noted today, and, unless otherwise indicated, the interactions with patient, family, and staff as well as the review of records all occurred today. I also attest that the listed assessment and stated plan reflect my best clinical judgment today based on the combination of historical information, prior notes, and today's exam/ interactions. When time spent is documented, it refers only to time spent today by the signer, or if indicated, combined time spent today by collaborating physician/nurse practitioner. Rubia Dutta MD Apr 23, 2017 14:09
[2017-04-23] MEDS: THIAMINE INJ 100 MG in SODIUM CHLORIDE 0.9% INJ 100 ML IV SCH (14:54)
--- NOTE | 2017-04-23 17:05 | EKG ---
Date Performed: 04/22/2017 Time Performed: 10:52:51 PTAGE: 82 years EKG: ATRIAL FIBRILLATION Since previous tracing, no significant change noted ABNORMAL RHYTHM ECG PREVIOUS TRACING : 07/03/2015 10.50 DOCTOR: Sherri Plata Interpretating Date/Time 04/23/2017 17:03:16
--- NOTE | 2017-04-23 17:05 | EKG ---
Date Performed: 04/22/2017 Time Performed: 17:14:24 PTAGE: 82 years EKG: Atrial fibrillation. Septal T wave changes are nonspecific Since previous tracing, no signi ficant change noted Abnormal ECG PREVIOUS TRACING : 04/22/2017 10.52 DOCTOR: Sherri Plata Interpretating Date/Time 04/23/2017 17:03:34
--- NOTE | 2017-04-23 17:42 | ECHRPT ---
Indication: CVA/TIA CONCLUSIONS Normal left ventricular size. Wall thickness is normal. The left ventricular systolic function is normal with an estimated ejection fraction in the range of 60-65%. There is trace tricuspid valve regurgitation. BP: 238 / 105 HR: 78 Rhythm: Technical Quality:Good FINDINGS LEFT VENTRICLE Normal left ventricular size. Wall thickness is normal. The left ventricular systolic function is normal with an estimated ejection fraction in the range of 60-65%. RIGHT VENTRICLE Normal right ventricular size and systolic function. LEFT ATRIUM The left atrial size is normal. RIGHT ATRIUM The right atrial size is normal. ATRIAL SEPTUM Normal atrial septal thickness without atrial level shunting by limited color doppler interrogation. AORTA The aortic root and proximal ascending aorta are normal in size on limited imaging. MITRAL VALVE Structurally normal mitral valve. No mitral valve stenosis or regurgitation. AORTIC VALVE Trileaflet aortic valve. No aortic valve stenosis or regurgitation. TRICUSPID VALVE There is trace tricuspid valve regurgitation. PULMONARY VALVE The pulmonary valve is not well visualized. VESSELS The inferior vena cava is normal in size. PERICARDIUM No pericardial effusion. Skyler Schroeder MD (Electronically Signed) Final Date:23 April 2017 17:41
--- NOTE | 2017-04-23 18:00 | HHI.PR ---
Objective Vital Signs Date Time Temp Pulse Resp B/P (MAP) Pulse Ox O2 Delivery O2 Flow Rate FiO2 04/23/17 16:00 50 04/23/17 16:00 72 04/23/17 16:00 98.7 72 16 199/78 (118) 100 04/23/17 15:43 100 40 04/23/17 14:00 64 04/23/17 12:00 50 04/23/17 12:00 100.1 74 19 111/53 (72) 100 04/23/17 12:00 74 04/23/17 11:58 100 40 04/23/17 10:00 50 04/23/17 10:00 101.4 74 21 137/65 (89) 100 04/23/17 10:00 74 04/23/17 08:19 100 40 04/23/17 08:00 100.1 70 21 149/66 (93) 100 04/23/17 08:00 50 04/23/17 08:00 70 04/23/17 07:00 100 Mechanical Ventilator 50 04/23/17 06:00 77 04/23/17 04:11 100 50 04/23/17 04:00 50 04/23/17 04:00 100.1 74 16 134/62 (86) 100 04/23/17 04:00 74 04/23/17 02:00 78 04/23/17 00:04 100 50 04/23/17 00:00 82 04/23/17 00:00 100.5 82 16 187/75 (112) 100 04/23/17 00:00 70 04/22/17 22:00 90 04/22/17 20:42 100 100 04/22/17 20:19 100 60 04/22/17 20:00 99.7 90 19 169/73 (105) 100 04/22/17 20:00 80 04/22/17 20:00 90 04/22/17 20:00 100 217/90 04/22/17 19:00 100 Mechanical Ventilator 80 04/22/17 18:00 89 I/O 04/22/17 04/22/17 04/22/17 04/23/17 04/23/17 04/23/17 07:00 15:00 23:00 07:00 15:00 23:00 Intake Total 1596 ml 1070 ml 1071 ml Output Total 700 ml 625 ml Balance 896 ml 445 ml 1071 ml Intake IV Total 1596 ml 1070 ml 1071 ml Output Urine Total 700 ml 625 ml Stool Total 0 ml 0 ml Result Diagram: 04/23/1741404/23/17414 Objective Remarks on vent moves left arm purposefuly not rue now nurse tells me last noc was moving all 4 ext he has some tremor left hand at times Assessment and Plan Assessment and Plan imp stillon xarelto he has by mri had old r parietal cva and new left mca post and some ant division and some deep cva nurse noted some rue movement last pm after clot disintegrated in left mca he is on a small amt dip and evidently fentanyl i think best thinbg is to get him off all sedatives and see what he can do so we can decide his level of disability to decide px and course of action i will be back wednesday to do this if we can get him off sedatives and maybe off vent wed or wednesday? if earlier call dr hanley wet char conveyor tender and he can give his px opinion if off sedatives Keron Kate MD Apr 23, 2017 18:00
[2017-04-23] MEDS: DOXAZOSIN MESYLATE 2 MG TAB PO SCH (18:37)
[2017-04-23] MEDS: ATORVASTATIN 40 MG TAB PO SCH (22:47)
--- NOTE | 2017-04-23 22:54 | MG ---
cc: JG BUI MD Lab No: [id number] Date: 04/23/17 Age: 82 Sex: M Race: DATE OF 1935 HISTORY Patient on Diprivan and fentanyl, apparently had a seizure. History of stroke. DESCRIPTION Generalized 1-4 Hz activity, 10-30 microvolts. Myogenic artifact occurring bilateral frontal temporal regions lasting for a good portion of the study. Single lead EKG showing sinus rhythm. INTERPRETATION Moderate artifact on this EEG occurring in the bilateral frontotemporal regions, rest of the interpretable EPOCHS of EEG. The other channels did not show any epileptic activity. Clinical correlation. Jg Bui MD MG/EO /10:05 PM /10:39 PM
[2017-04-23] MEDS: hydrALAZINE HCL 20 MG/ML VIAL IV PUSH PRN (23:05)
[2017-04-24] VITALS (15 sets, daily range): BP systolic 113–196; BP diastolic 53–81; PULSE 79–95; RESP 16–25; TEMP 98.4–100.3; O2SAT 81–100
[2017-04-24] MEDS: INSULIN NovoLIN REGULAR SUPPLEMENTAL SCALE SQ SCH ×4 (01:09→18:00)
[2017-04-24] MEDS: RESP: ALBUTEROL 2.5 MG/IPRATROPIUM 0.5 MG NEB (SCH) INH ×4 (02:59→20:54)
[2017-04-24] MEDS: CHLORHEXIDINE GLUCONATE 2 % 1 PACK (2 CLOTHS) TOP SCH (04:00)
[2017-04-24 04:44] LABS: MEAN CELL VOLUME 92.6 FL (80.0-100.0); MEAN CORPUSCULAR HEMOGLOBIN 31.5 PG (27.0-34.0); PLATELET COUNT 151 TH/MM3 (150-450); RED BLOOD COUNT 3.67 MIL/MM3 (4.50-5.90); RED CELL DISTRIBUTION WIDTH 13.5 % (11.6-17.2); REVIEW FLAG FINAL; WHITE BLOOD COUNT 10.6 TH/MM3 (4.0-11.0)
[2017-04-24 05:02] LABS: BICARBONATE 25.7 MEQ/L (21.0-32.0); POTASSIUM 3.9 MEQ/L (3.5-5.1)
[2017-04-24] MEDS: DOXAZOSIN MESYLATE 2 MG TAB PO SCH (08:49)
[2017-04-24] MEDS: FAMOTIDINE 20 MG TAB PO SCH ×2 (08:49→21:22)
[2017-04-24] MEDS: CHLORHEXIDINE 0.12% (ORAL KIT) 15 ML CUP MT SCH ×2 (08:49→21:24)
[2017-04-24] MEDS: HYDROCHLOROTHIAZIDE 25 MG TAB PO SCH (08:50)
[2017-04-24] MEDS: FLUoxetine HCL 10 MG CAP PO SCH (08:50)
[2017-04-24] MEDS: SODIUM CHLORIDE 0.9% FLUSH 10 ML FLUSH IV FLUSH SCH ×2 (08:50→21:24)
[2017-04-24] MEDS: ASPIRIN 81 MG CHEW TAB PO SCH (08:50)
[2017-04-24] MEDS: DOCUSATE SODIUM 50 MG/SENNA 8.6 MG TAB PO SCH ×2 (08:50→21:23)
[2017-04-24] MEDS: RIVAROXABAN 20 MG TAB PO SCH (09:14)
[2017-04-24] MEDS: PROPOFOL 1000 MG/100 ML IV PRN (11:13)
--- NOTE | 2017-04-24 13:30 | HHI.CCPN ---
Subjective Remarks/Hospital Course Hospital Course: This is an 82-year-old male. Date of admission 04/22/2017. 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 He presents to [facility] today as a stroke alert. Evaluated by Dr. Kate/neurology. Symptoms included right-sided hemiparesis with a left-sided gaze. Patient was hypertensive and started on nicardipine drip. Given 300 mg aspirin per rectum 1. CT brain revealed chronic ischemic changes including right frontal/parietal and cephalization old right lateral basal ganglia CVA. CT angiogram of the brain revealed occlusion the left MCA at its proximal trifurcation. 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 Patient is brought back intervention radiology for possible stent retrieval Subjective: 04/23: intubated yesterday. still encephalopathic. need to watch carefully, going into swell window. neuro exam stable from yesterday per report. IR yesterday performed with patent MCA flow on angio. no intervention performed. 04/24: no improvements in mental status on sedation vacation. palliative met with family yesterday and they want to be aggressive for a few days and re- evaluate. Objective Vital Signs Date Time Temp Pulse Resp B/P (MAP) Pulse Ox O2 Delivery O2 Flow Rate FiO2 04/24/17 11:08 100 40 04/24/17 07:00 Mechanical Ventilator 04/24/17 06:00 92 04/24/17 04:00 100.3 21 117/58 (77) Intake and Output 04/24/17 04/24/17 04/25/17 08:00 16:00 00:00 Intake Total 370.3 ml Output Total 350 ml Balance 20.3 ml Result Diagram: 04/24/17 0336 04/24/17 0336 Imaging Last Impressions Neck CTA 04/22/17 1026 Signed Impressions: Service Date/Time: March 10:32 - CONCLUSION: No evidence of significant carotid stenosis Obi Macedo MD Head CTA 04/22/17 1026 Signed Impressions: Service Date/Time: March 10:25 - CONCLUSION: Left MCA occlusion. Findings were reported to Dr. Flores and Dr. Kate at 1100 hrs. Obi Macedo MD Head CT 04/22/17 0000 Signed Impressions: Service Date/Time: March 10:25 - CONCLUSION: No acute intracranial findings. Extensive chronic ischemic sequela Obi Macedo MD Objective Remarks GENERAL: elderly male, lying in bed, intubated, encephalopathic. SKIN: Warm and dry. HEAD: Atraumatic. Normocephalic. EYES: Pupils equal and round. No scleral icterus. No injection or drainage. ENT: No nasal bleeding or discharge. Mucous membranes pink and moist. NECK: Trachea midline. No JVD. CARDIOVASCULAR: Regular rate and rhythm. RESPIRATORY: intubated, full support. PRVC. GASTROINTESTINAL: Abdomen soft, non-tender, nondistended. no guarding. MUSCULOSKELETAL: Extremities without clubbing, cyanosis, or edema. No obvious deformities. NEUROLOGICAL: RASS -4. weakly withdraws to pain. does not follow commands. pupils equal, sluggishly reactive. A/P Assessment and Plan Assessment: 82yM s/p large left MCA CVA. given large distribution of ischemic brain, fairly poor prognosis. unable to be completely intervened upon. continue frequent neuro checks. permissive hypertension. can start SBTs to keep from getting deconditioned, but extubation will be decided based on mental status. palliative involved. 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 Kate/neurology CT brain revealed old left frontal/parietal encephalomalacia in bilateral basal ganglia CVA CTA brain revealed occlusion left MCA. right SAFETY SEALER CT neck no acute occlusions Dr. Macedo - IR for stent retrieval no thrombus noted Currently on aspirin 81 mg daily. Received 300 mg SD 1 in ED Goal keep systolic blood pressure less than 220/120, goal sbp 140 - 180. however , would prefer to avoid vasopressors if possible. 2-D echocardiogram ordered Hemoglobin A1c/TSH ordered PT/OT/ST evaluate and treat haldol 5mg iv q4h prn for agitation minimize as many sedating meds as possible. prop or fent drips only as needed for sedation/agitation not controlled with haldol. CV: Hypertensive emergency History of hypertension Dyslipidemia Coronary artery disease - nonobstructive Atrial fibrillation currently rate controlled currently off jason curtisip meeting pressure goals. Heart catheterization 07/[address] Mejía revealed EF 60%. Nonobstructive coronary artery disease. Home medications include losartan 50 mg twice a day and hydrochlorothiazide 25 mg daily for hypertension Home medication is atorvastatin 40 mg daily for dyslipidemia Continue aspirin 81 mg by mouth daily Resp: History COPD Acute hypoxic and hypercarbic respiratory failure wean fio2 for goal spo2 > 90% daily sbt's no extubation until mental status improves. intubated 04/22 for declining mental status and hypoxia. GI: Gastroesophageal reflux disease History of colon cancer status post resection 2010 Acute protein calorie malnutrition- severe. Constipation DHT. on TFs. On famotidine 20 mg by mouth twice a day for gastroesophageal reflux disease Docusate sodium/senna 1 tablet twice a day for bowel regimen. increase bowel regimen. : History of ED Urinary retention started cardura yesterday. plan to d/c garza after 48h of cardura therapy. Endo: Sliding-scale insulin if indicated to maintain euglycemia control 130 to 180 Renal: Chronic kidney disease stage II Creatinine currently within normal limits Monitor urine output Accurate I's and O's Heme: History of melanoma/SCC of the forehead? Recent excision 2 weeks ago Hypercoagulable state on chronic Rivaroxaban - unclear if acquired or inherited PT/PTT elevation Monitor CBC daily. Resume anticoagulation when okay with neurology ID: History of shingles Monitor for infection MSK: PT/OT evaluate and treat FEN: Replace electrolytes as clinically indicated Access - Utilize peripheral IVs Prophylaxis - GI - famotidine - DVT - SCD Butch Sommers MD Apr 24, 2017 13:30
[2017-04-24] MEDS ORDERED: MAGNESIUM CITRATE SOLN 300 ML BTL PO ONE (13:45)
[2017-04-24] MEDS ORDERED: HALOPERIDOL LACTATE 5 MG/ML AMP IV PUSH PRN (13:45)
[2017-04-24] MEDS: LACTULOSE SYRUP 20 GM/30 ML CUP PO SCH ×2 (14:00→21:22)
[2017-04-24] MEDS: THIAMINE INJ 100 MG in SODIUM CHLORIDE 0.9% INJ 100 ML IV SCH (15:15)
[2017-04-24] MEDS: hydrALAZINE HCL 20 MG/ML VIAL IV PUSH PRN ×3 (17:25→23:17)
[2017-04-24] MEDS: LABETALOL HCL 100 MG/20 ML VIAL IV PUSH PRN ×2 (18:44→21:29)
[2017-04-24] MEDS: POLYETHYLENE GLYCOL 17 GM PKG PO SCH (21:00)
[2017-04-24] MEDS: ATORVASTATIN 40 MG TAB PO SCH (21:22)
[2017-04-25] VITALS (20 sets, daily range): BP systolic 151–196; BP diastolic 67–88; PULSE 70–97; RESP 16–25; TEMP 98–98.9; O2SAT 95–99
[2017-04-25] MEDS: LABETALOL HCL 100 MG/20 ML VIAL IV PUSH PRN ×2 (00:03→22:30)
[2017-04-25] MEDS: INSULIN NovoLIN REGULAR SUPPLEMENTAL SCALE SQ SCH ×4 (00:53→17:22)
[2017-04-25] MEDS: CHLORHEXIDINE GLUCONATE 2 % 1 PACK (2 CLOTHS) TOP SCH (04:00)
[2017-04-25] MEDS: RESP: ALBUTEROL 2.5 MG/IPRATROPIUM 0.5 MG NEB (SCH) INH ×4 (04:27→20:51)
[2017-04-25 06:30] LABS: HEMATOCRIT 30.6 % (39.0-51.0); MEAN CELL VOLUME 92.1 FL (80.0-100.0); MEAN CORPUSCULAR HEMOGLOBIN 30.6 PG (27.0-34.0); MEAN CORPUSCULAR HGB CONC 33.2 % (32.0-36.0); PLATELET COUNT 162 TH/MM3 (150-450); RED BLOOD COUNT 3.32 MIL/MM3 (4.50-5.90); RED CELL DISTRIBUTION WIDTH 13.6 % (11.6-17.2); REVIEW FLAG FINAL; WHITE BLOOD COUNT 11.2 TH/MM3 (4.0-11.0)
[2017-04-25 07:02] LABS: BICARBONATE 27.6 MEQ/L (21.0-32.0); POTASSIUM 3.7 MEQ/L (3.5-5.1)
[2017-04-25] MEDS: CHLORHEXIDINE 0.12% (ORAL KIT) 15 ML CUP MT SCH ×2 (08:00→21:22)
[2017-04-25] MEDS: POLYETHYLENE GLYCOL 17 GM PKG PO SCH ×2 (08:16→21:00)
[2017-04-25] MEDS: LACTULOSE SYRUP 20 GM/30 ML CUP PO SCH ×2 (08:16→21:00)
[2017-04-25] MEDS: DOCUSATE SODIUM 50 MG/SENNA 8.6 MG TAB PO SCH ×2 (08:16→21:22)
[2017-04-25] MEDS: BISACODYL 10 MG SUPP RECTAL SCH (08:16)
[2017-04-25] MEDS: SODIUM CHLORIDE 0.9% FLUSH 10 ML FLUSH IV FLUSH SCH ×2 (08:17→21:22)
[2017-04-25] MEDS: FLUoxetine HCL 10 MG CAP PO SCH (09:00)
[2017-04-25] MEDS: DOXAZOSIN MESYLATE 2 MG TAB PO SCH (09:19)
[2017-04-25] MEDS: RIVAROXABAN 20 MG TAB PO SCH (09:19)
[2017-04-25] MEDS: HYDROCHLOROTHIAZIDE 25 MG TAB PO SCH (09:20)
[2017-04-25] MEDS: FAMOTIDINE 20 MG TAB PO SCH ×2 (09:20→21:22)
[2017-04-25] MEDS: ASPIRIN 81 MG CHEW TAB PO SCH (09:20)
--- NOTE | 2017-04-25 09:51 | HHI.CCPN ---
Subjective Remarks/Hospital Course Hospital Course: This is an 82-year-old male. Date of admission 04/22/2017. 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 He presents to [facility] today as a stroke alert. Evaluated by Dr. Kate/neurology. Symptoms included right-sided hemiparesis with a left-sided gaze. Patient was hypertensive and started on nicardipine drip. Given 300 mg aspirin per rectum 1. CT brain revealed chronic ischemic changes including right frontal/parietal and cephalization old right lateral basal ganglia CVA. CT angiogram of the brain revealed occlusion the left MCA at its proximal trifurcation. 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 Patient is brought back intervention radiology for possible stent retrieval Subjective: 04/23: intubated yesterday. still encephalopathic. need to watch carefully, going into swell window. neuro exam stable from yesterday per report. IR yesterday performed with patent MCA flow on angio. no intervention performed. 04/24: no improvements in mental status on sedation vacation. palliative met with family yesterday and they want to be aggressive for a few days and re- evaluate. 04/25: no changes. off sedation x 24h. poor neuro exam. Cr slightly above baseline. uop borderline, but net + every day and clinically appears euvolemic. Objective Vital Signs Date Time Temp Pulse Resp B/P (MAP) Pulse Ox O2 Delivery O2 Flow Rate FiO2 04/25/17 08:15 99 40 04/25/17 07:00 Mechanical Ventilator 04/25/17 06:00 88 04/25/17 04:00 98.9 16 151/67 (95) Intake and Output 04/25/17 04/25/17 04/26/17 08:00 16:00 00:00 Intake Total 717 ml Output Total 260 ml Balance 457 ml Result Diagram: 04/25/17 0547 04/25/17 0547 Imaging Last Impressions Neck CTA 04/22/17 1026 Signed Impressions: Service Date/Time: March 10:32 - CONCLUSION: No evidence of significant carotid stenosis Obi Macedo MD Head CTA 04/22/17 1026 Signed Impressions: Service Date/Time: March 10:25 - CONCLUSION: Left MCA occlusion. Findings were reported to Dr. Flores and Dr. Kate at 1100 hrs. Obi Macedo MD Head CT 04/22/17 0000 Signed Impressions: Service Date/Time: March 10:25 - CONCLUSION: No acute intracranial findings. Extensive chronic ischemic sequela Obi Macedo MD Objective Remarks GENERAL: elderly male, lying in bed, intubated, encephalopathic. SKIN: Warm and dry. HEAD: Atraumatic. Normocephalic. EYES: Pupils equal and round. No scleral icterus. No injection or drainage. ENT: No nasal bleeding or discharge. Mucous membranes pink and moist. NECK: Trachea midline. No JVD. CARDIOVASCULAR: Regular rate and rhythm. RESPIRATORY: intubated, full support. PRVC. GASTROINTESTINAL: Abdomen soft, non-tender, nondistended. no guarding. MUSCULOSKELETAL: Extremities without clubbing, cyanosis, or edema. No obvious deformities. NEUROLOGICAL: RASS -4. weakly withdraws to pain. does not follow commands. pupils equal, sluggishly reactive. A/P Assessment and Plan Assessment: 82yM s/p large left MCA CVA. given large distribution of ischemic brain, fairly poor prognosis. unable to be completely intervened upon. continue frequent neuro checks. permissive hypertension. can start SBTs to keep from getting deconditioned, but extubation will be decided based on mental status. palliative involved. 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 Kate/neurology CT brain revealed old left frontal/parietal encephalomalacia in bilateral basal ganglia CVA CTA brain revealed occlusion left MCA. right ARTIFICIAL BRE[employer]CH [employer]PER[employer]OR CT neck no acute occlusions Dr. Macedo - IR for stent retrieval no thrombus noted Currently on aspirin 81 mg daily. Received 300 mg VA 1 in ED Goal keep systolic blood pressure less than 220/120, goal sbp 140 - 180. however , would prefer to avoid vasopressors if possible. 2-D echocardiogram ordered Hemoglobin A1c/TSH ordered PT/OT/ST evaluate and treat haldol 5mg iv q4h prn for agitation minimize as many sedating meds as possible. prop or fent drips only as needed for sedation/agitation not controlled with haldol. CV: Hypertensive emergency History of hypertension Dyslipidemia Coronary artery disease - nonobstructive Atrial fibrillation currently rate controlled currently off cardene drip meeting pressure goals. Heart catheterization 07/[address] Mejía revealed EF 60%. Nonobstructive coronary artery disease. Home medications include losartan 50 mg twice a day and hydrochlorothiazide 25 mg daily for hypertension Home medication is atorvastatin 40 mg daily for dyslipidemia Continue aspirin by mouth daily Resp: History COPD Acute hypoxic and hypercarbic respiratory failure wean fio2 for goal spo2 > 90% daily sbt's no extubation until mental status improves. intubated 04/22 for declining mental status and hypoxia. PT consults. OOB to stretcher chair. GI: Gastroesophageal reflux disease History of colon cancer status post resection 2010 Acute protein calorie malnutrition- severe. Constipation - resolved. DHT. on TFs. On famotidine 20 mg by mouth twice a day for gastroesophageal reflux disease having daily BMs on increased regimen. continue. : History of ED Urinary retention started cardura 04/23. plan to d/c garza 04/26 after 48h of cardura therapy. Endo: Sliding-scale insulin if indicated to maintain euglycemia control 130 to 180 Renal: Chronic kidney disease stage II Creatinine currently within normal limits Monitor urine output Accurate I's and O's Heme: History of melanoma/SCC of the forehead? Recent excision 2 weeks ago Hypercoagulable state on chronic Rivaroxaban - unclear if acquired or inherited PT/PTT elevation Monitor CBC daily. Resume anticoagulation when okay with neurology ID: History of shingles Monitor for infection MSK: PT/OT evaluate and treat FEN: Replace electrolytes as clinically indicated Access - Utilize peripheral IVs Prophylaxis - GI - famotidine - DVT - SCD Butch Sommers MD Apr 25, 2017 09:51
[2017-04-25] MEDS: ATORVASTATIN 40 MG TAB PO SCH (21:22)
[2017-04-26] VITALS (19 sets, daily range): BP systolic 154–184; BP diastolic 67–78; PULSE 50–80; RESP 23–28; TEMP 98.5–101.2; O2SAT 99–100
[2017-04-26] MEDS: INSULIN NovoLIN REGULAR SUPPLEMENTAL SCALE SQ SCH ×4 (00:20→18:00)
[2017-04-26] MEDS: LABETALOL HCL 100 MG/20 ML VIAL IV PUSH PRN ×5 (00:20→23:17)
[2017-04-26] MEDS: hydrALAZINE HCL 20 MG/ML VIAL IV PUSH PRN ×2 (00:30→04:15)
[2017-04-26] MEDS: CHLORHEXIDINE GLUCONATE 2 % 1 PACK (2 CLOTHS) TOP SCH (03:27)
[2017-04-26] MEDS: RESP: ALBUTEROL 2.5 MG/IPRATROPIUM 0.5 MG NEB (SCH) INH ×2 (03:45→08:30)
[2017-04-26 05:03] LABS: MEAN CELL VOLUME 92.8 FL (80.0-100.0); MEAN CORPUSCULAR HEMOGLOBIN 31.2 PG (27.0-34.0); MEAN CORPUSCULAR HGB CONC 33.6 % (32.0-36.0); PLATELET COUNT 172 TH/MM3 (150-450); RED BLOOD COUNT 3.45 MIL/MM3 (4.50-5.90); RED CELL DISTRIBUTION WIDTH 13.2 % (11.6-17.2); REVIEW FLAG FINAL; WHITE BLOOD COUNT 11.2 TH/MM3 (4.0-11.0)
[2017-04-26 05:26] LABS: BICARBONATE 31.3 MEQ/L (21.0-32.0); POTASSIUM 3.6 MEQ/L (3.5-5.1)
[2017-04-26] MEDS: CHLORHEXIDINE 0.12% (ORAL KIT) 15 ML CUP MT SCH ×2 (08:00→21:34)
--- NOTE | 2017-04-26 08:15 | HHI.PR ---
Objective Vital Signs Date Time Temp Pulse Resp B/P (MAP) Pulse Ox O2 Delivery O2 Flow Rate FiO2 04/26/17 06:00 75 04/26/17 05:25 100 40 04/26/17 04:00 98.6 75 23 175/78 (110) 100 04/26/17 04:00 40 04/26/17 04:00 75 04/26/17 03:45 99 40 04/26/17 02:00 50 04/26/17 00:33 154/67 (96) 04/26/17 00:00 98.5 77 24 184/76 (112) 100 04/26/17 00:00 40 04/26/17 00:00 80 04/25/17 23:53 99 40 04/25/17 22:00 92 04/25/17 20:51 99 40 04/25/17 20:00 80 04/25/17 20:00 40 04/25/17 20:00 98.4 80 25 187/77 (113) 99 04/25/17 19:00 99 Mechanical Ventilator 40 04/25/17 18:00 73 04/25/17 17:30 95 40 04/25/17 17:30 40 04/25/17 16:00 98.2 70 21 184/88 (120) 99 04/25/17 16:00 40 04/25/17 16:00 77 04/25/17 15:27 99 40 04/25/17 14:00 76 04/25/17 12:00 40 04/25/17 12:00 82 04/25/17 12:00 98.0 85 22 185/78 (113) 98 04/25/17 10:00 79 04/25/17 08:15 40 04/25/17 08:15 99 40 04/25/17 08:15 40 04/25/17 08:14 99 40 I/O 04/25/17 04/25/17 04/25/17 04/26/17 04/26/17 04/26/17 07:00 15:00 23:00 07:00 15:00 23:00 Intake Total 717 ml 752 ml 749 ml Output Total 260 ml 500 ml 550 ml Balance 457 ml 252 ml 199 ml Intake IV Total 165 ml 97 ml Tube Feeding 552 ml 655 ml 659 ml Other 90 ml Output Urine Total 260 ml 500 ml 550 ml Stool Total 0 ml 0 ml # Bowel Movements 2 0 Result Diagram: 04/26/17 0415 04/26/17 0415 Objective Remarks on vent moves left arm purposefuly and flexes rue to pain a little r toe up not moving rle much moves left ok not follow commands pupil= Assessment and Plan Assessment and Plan imp nasra crawford he has by mri had old r parietal cva and new left mca post and some ant division and some deep cva nurse noted some rue movement last pm after clot disintegrated in left mca he is on a small amt dip and evidently fentanyl i think best thinbg is to get him off all sedatives and see what he can do so we can decide his level of disability to decide px and course of action i will be back wednesday to do this if we can get him off sedatives and maybe off vent wed or wednesday? if earlier call dr hanley title one kindergarten teacher and he can give his px opinion if off sedatives 04/26/17 moving quite a bit not following commands kyaw some aphasia unfortunately he got haldol and ativan last 2 days so that effects his and my mental status exam/fxt i dced these i dw nursing regardless [facility] living for rest of life but can survive this vs hospice up to what she wants to do she can call me when she comes intoday via nursing Keron Kate MD Apr 26, 2017 08:15
[2017-04-26] MEDS: BISACODYL 10 MG SUPP RECTAL SCH (09:00)
[2017-04-26] MEDS: FLUoxetine HCL 10 MG CAP PO SCH (09:00)
[2017-04-26] MEDS: HYDROCHLOROTHIAZIDE 25 MG TAB PO SCH (09:00)
[2017-04-26] MEDS: FAMOTIDINE 20 MG TAB PO SCH ×2 (09:00→21:30)
[2017-04-26] MEDS: POLYETHYLENE GLYCOL 17 GM PKG PO SCH ×2 (09:00→21:00)
[2017-04-26] MEDS: DOCUSATE SODIUM 50 MG/SENNA 8.6 MG TAB PO SCH ×2 (09:00→21:33)
[2017-04-26] MEDS: DOXAZOSIN MESYLATE 2 MG TAB PO SCH (09:42)
[2017-04-26] MEDS: LACTULOSE SYRUP 20 GM/30 ML CUP PO SCH ×2 (09:42→21:00)
[2017-04-26] MEDS: RIVAROXABAN 20 MG TAB PO SCH (09:42)
[2017-04-26] MEDS: ASPIRIN 81 MG CHEW TAB PO SCH (09:42)
--- NOTE | 2017-04-26 10:26 | HHI.HCSW ---
Photographic Process Worker Visit Advance Directive Living will obtained from Dr. Cortez's office. Completed March 07, 2008. His living will states "I do desire that food and hydration (food and water) be withheld or withdrawn when the application of such procedure would serve only to prolong artificially the process of dying." This document also designates his , Leonela Rojas, as health care surrogate. Copy faxed to HIM to be scanned into EMR. . Estephania Smith, MYRON Apr 26, 2017 10:26
--- NOTE | 2017-04-26 14:28 | HHI.HCPN ---
Reason for visit a. To assist with evaluation and management of symptoms including: Dyspnea , dysphagia b. To assist medical decision maker(s) with: better understanding of current medical conditions; weighing benefits/burdens of medical treatment options; making medical treatment decisions. . Subjective/Interval History Patient remains intubated, mechanically ventilated and minimally responsive in the SICU. He is now off all sedation for over 24 hours. Occasional spontaneous movement of left side, otherwise just withdrawing to noxious stimuli. Nurses do not think he has been painful. . Family/friend interactions Spoke with in consult room for about 25 minutes .Explained that the patient 's stroke is survivable but that prognosis for recovery with independence is unlikely given the size of the stroke. Upon my urging she spoke with Dr. Kate by phone and he agreed that he would likely not regain speech and he would be quite dependent. Reviewed patient's living will together. Patient had also had conversations with regarding end of life issues. He was very independent, active, proud and per , would never want to live like he is now or dependent in a shelter. reports that all pt's children are aware that he is critically ill in the ICU. has lots of support through local friends and from her own children (from a prior marriage). We discussed what withdrawal of life support would be like should she feel her would want option under the circumstances. 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 We addressed code status given the prognosis. has agreed to NO CODE. . . Advance Directives Living Will: Copy in medical record Health Care Surrogate: Copy in medical record Durable Power of Finance Associate: Never completed Advance Directive Specifics Date completed: Combined living will and health care surrogate designations were completed on . Health Care Surrogate(s): Patient has designated his -- Leonela Rojas -- as his health care surrogate. . Documented care wishes: Living will indicates he would not want life prolonged should he be found to have a terminal or end-stage condition. He would NOT want artificial nutrition/ hydration. . Objective Vital Signs Date Time Temp Pulse Resp B/P (MAP) Pulse Ox O2 Delivery O2 Flow Rate FiO2 04/26/17 12:10 100 40 04/26/17 12:00 74 04/26/17 12:00 40 04/26/17 10:00 70 04/26/17 08:30 100 40 04/26/17 08:00 76 04/26/17 08:00 40 04/26/17 07:00 100 Mechanical Ventilator 40 04/26/17 06:00 75 04/26/17 05:25 100 40 04/26/17 04:00 98.6 75 23 175/78 (110) 100 04/26/17 04:00 40 04/26/17 04:00 75 04/26/17 03:45 99 40 04/26/17 02:00 50 04/26/17 00:33 154/67 (96) 04/26/17 00:00 98.5 77 24 184/76 (112) 100 04/26/17 00:00 40 04/26/17 00:00 80 04/25/17 23:53 99 40 04/25/17 22:00 92 04/25/17 20:51 99 40 04/25/17 20:00 80 04/25/17 20:00 40 04/25/17 20:00 98.4 80 25 187/77 (113) 99 04/25/17 19:00 99 Mechanical Ventilator 40 04/25/17 18:00 73 04/25/17 17:30 95 40 04/25/17 17:30 40 04/25/17 16:00 98.2 70 21 184/88 (120) 99 04/25/17 16:00 40 04/25/17 16:00 77 04/25/17 15:27 99 40 Intake & Output 04/26/17 04/26/17 07:00 19:00 Intake Total 749 ml Output Total 550 ml Balance 199 ml Tube Feeding 659 ml Other 90 ml Output Urine Total 550 ml Stool Total 0 ml # Bowel Movements 0 . Physical Exam CONSTITUTIONAL/GENERAL: This is an adequately nourished patient, in no apparent distress, mechanical ventilation, sedation. Rare spontaneous movement of LUE. TUBES/LINES/DRAINS: SCDs, peripheral IV access, endotracheal tube, OG tube, Chapa SKIN: No jaundice, rashes, there is a healing surgical site on his upper forehead where the SCC was excised 2 weeks ago. Ecchymoses on upper extremities. No wounds seen anteriorly. Skin temperature appropriate. Not diaphoretic. HEAD: Atraumatic. Normocephalic. EYES: Pupils equal reactuve, . No scleral icterus. No injection or drainage. Fundi not examined. ENT: Nose without bleeding or purulent drainage. Oropharynx not examined. NECK: Trachea midline. CARDIOVASCULAR: Regular rate/thythm without murmurs, gallops, or rubs. No JVD. RESPIRATORY/CHEST: Symmetric, unlabored respirations. Clear to auscultation. Breath sounds equal bilaterally. No wheezes, rales, or rhonchi. GASTROINTESTINAL: Abdomen soft, non-tender, nondistended. No hepato-splenomegaly , or palpable masses. No guarding. Bowel sounds present. GENITOURINARY: Without palpable bladder distension. Chapa catheter in place. MUSCULOSKELETAL: Extremities without clubbing, cyanosis, or edema. No mottling. LYMPHATICS: Not examined. NEUROLOGICAL: Unable to follow commands.. Rare spontaneous movement LUE. Withdraws to noxious stimuli all 4 extremities but more movement on left. PSYCHIATRIC: Unable to evaluate due to clinical condition . Diagnostic Tests Laboratory Laboratory Tests Test 04/24/17 03:36 04/25/17 05:47 04/26/17 04:15 White Blood Count 10.6 TH/MM3 (4.0-11.0) 11.2 TH/MM3 (4.0-11.0) 11.2 TH/MM3 (4.0-11.0) Red Blood Count 3.67 MIL/MM3 (4.50-5.90) 3.32 MIL/MM3 (4.50-5.90) 3.45 MIL/MM3 (4.50-5.90) Hemoglobin 11.6 GM/DL (13.0-17.0) 10.2 GM/DL (13.0-17.0) 10.8 GM/DL (13.0-17.0) Hematocrit 34.0 % (39.0-51.0) 30.6 % (39.0-51.0) 32.0 % (39.0-51.0) Mean Corpuscular Volume 92.6 FL (80.0-100.0) 92.1 FL (80.0-100.0) 92.8 FL (80.0-100.0) Mean Corpuscular Hemoglobin 31.5 PG (27.0-34.0) 30.6 PG (27.0-34.0) 31.2 PG (27.0-34.0) Mean Corpuscular Hemoglobin Concent 34.0 % (32.0-36.0) 33.2 % (32.0-36.0) 33.6 % (32.0-36.0) Red Cell Distribution Width 13.5 % (11.6-17.2) 13.6 % (11.6-17.2) 13.2 % (11.6-17.2) Platelet Count 151 TH/MM3 (150-450) 162 TH/MM3 (150-450) 172 TH/MM3 (150-450) Mean Platelet Volume 8.9 FL (7.0-11.0) 8.6 FL (7.0-11.0) 9.0 FL (7.0-11.0) Blood Urea Nitrogen 23 MG/DL (7-18) 34 MG/DL (7-18) 32 MG/DL (7-18) Creatinine 1.16 MG/DL (0.60-1.30) 1.14 MG/DL (0.60-1.30) 0.83 MG/DL (0.60-1.30) Random Glucose 165 MG/DL (74-106) 159 MG/DL (74-106) 152 MG/DL (74-106) Calcium Level 8.0 MG/DL (8.5-10.1) 8.5 MG/DL (8.5-10.1) 8.7 MG/DL (8.5-10.1) Sodium Level 139 MEQ/L (136-145) 141 MEQ/L (136-145) 142 MEQ/L (136-145) Potassium Level 3.9 MEQ/L (3.5-5.1) 3.7 MEQ/L (3.5-5.1) 3.6 MEQ/L (3.5-5.1) Chloride Level 106 MEQ/L (98-107) 106 MEQ/L (98-107) 105 MEQ/L (98-107) Carbon Dioxide Level 25.7 MEQ/L (21.0-32.0) 27.6 MEQ/L (21.0-32.0) 31.3 MEQ/L (21.0-32.0) Anion Gap 7 MEQ/L (5-15) 7 MEQ/L (5-15) 6 MEQ/L (5-15) Estimat Glomerular Filtration Rate 60 ML/MIN (>89) 61 ML/MIN (>89) 88 ML/MIN (>89) . Result Diagram: 04/26/17 0415 04/26/17414 Imaging Last Impressions Neck CTA 04/22/17 1026 Signed Impressions: Service Date/Time: March 10:32 - CONCLUSION: No evidence of significant carotid stenosis Obi Macedo MD Head CTA 04/22/17 1026 Signed Impressions: Service Date/Time: March 10:25 - CONCLUSION: Left MCA occlusion. Findings were reported to Dr. Flores and Dr. Kate at 1100 hrs. Obi Macedo MD Head CT 04/22/17 0000 Signed Impressions: Service Date/Time: March 10:25 - CONCLUSION: No acute intracranial findings. Extensive chronic ischemic sequela Obi Macedo MD Chest X-Ray 04/22/17 0000 Signed Impressions: Service Date/Time: March 13:53 - CONCLUSION: 1. Status post intubation. 2. No acute cardiopulmonary disease. Joni Akbar MD Cerebral Arteriogram 04/22/17 0000 Signed Impressions: Service Date/Time: March 11:10 - CONCLUSION: Interval spontaneous recanalization of middle cerebral artery occlusion. Catheter directed stroke therapy was not required. Obi Macedo MD Brain MRI 04/22/17 0000 Signed Impressions: Service Date/Time: March 21:14 - CONCLUSION: 1. There is acute infarction involving the posterior left frontal, left temporal, and left parietal lobes. The area of acute infarction involves the left basal ganglia and the left caudate head. 2. Increased signal throughout the cerebral and pontine white matter likely secondary to small vessel ischemic change. 3. Right parietal encephalomalacia. Obi Live MD . Procedures INTUBATION 04/22/17 Interventional Radiology 04/22/17 . 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 Spiritual: The patient is Ep[employer]alian, is closely affiliated with the "[facility], and the fisher pot has already visited the patient here. Legal: The patient lacks capacity for decision-making, and it is unlikely that he will regain that capacity. The patient's Leonela is the proxy decision -maker. Ethical issues impacting care: None . Important Contacts Spouse: Leonela Rojas Home: . Prognosis The patient's prognosis is poor unless there is a somewhat miraculous neurologic recovery. He has suffered a major stroke. He will be a candidate for hospice services when the goals become comfort oriented. . Code Status: No Code ( has agreed to NO CODE status per the discussion with Dr. Morris on 04/26/17 and after discussion regarding prognosis with Dr. Kate by phone. ) Plan == NO CODE: has agreed to NO CODE status per the discussion with Dr. Morris on 04/26/17 and after discussion regarding prognosis with Dr. Kate by phone. == DECISION-MAKING: The patient lacks capacity for decision-making, and it is unlikely that he will regain that capacity. The patient's Leonela is the designated health care surrogate. == GOALS: has agreed to DNR status. We will continue aggressive care short of resuscitation for now. She will speak to patient's children this evening. She seems certain that patient would not want life prologning measures given his prognosis so I anticipate she will want to transition to "comfort measures only" over the next day or so. == SYMPTOMS: * Dyspnea is being managed with mechanical ventilation. No further recommendations at this time. * Pain: there are no obvious signs of pain. I have no additional medication recommendations at this time. ==Spiritual support is being provided by the patient's fisher pot and deato from [facility]. == Will check in with on 04/27. Palliative care will continue to follow to assist with symptom management and to further clarify goals of medical treatment as the clinical course evolves. . . Time Spent Total Floor Time (mins): 50 (Total floor time included chart review, patient exam, review of living will, above referenced meeting with , discussion of resuscitation status after her conversation with Dr. Kate, and collaboration with primary nurse.) Face to Face Time (mins): 10 >50% Counseling/Coord of Care: Yes Attestation To help prompt me to consider important information that might be impacting today's encounter and assessment, information from prior notes written by myself or my colleagues may have been "brought forward" into today's note. My signature on this note, however, is an attestation that I personally performed the exam, history, and/or decision-making noted today, and, unless otherwise indicated, the interactions with patient, family, and staff as well as the review of records all occurred today. I also attest that the listed assessment and stated plan reflect my best clinical judgment today based on the combination of historical information, prior notes, and today's exam/ interactions. When time spent is documented, it refers only to time spent today by the signer, or if indicated, combined time spent today by collaborating physician/nurse practitioner. . Manas Morris MD Apr 26, 2017 14:28
--- NOTE | 2017-04-26 16:19 | HHI.CCPN ---
Subjective Remarks/Hospital Course Hospital Course: This is an 82-year-old male. Date of admission 04/22/2017. 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 He presents to [facility] today as a stroke alert. Evaluated by Dr. Kate/neurology. Symptoms included right-sided hemiparesis with a left-sided gaze. Patient was hypertensive and started on nicardipine drip. Given 300 mg aspirin per rectum 1. CT brain revealed chronic ischemic changes including right frontal/parietal and cephalization old right lateral basal ganglia CVA. CT angiogram of the brain revealed occlusion the left MCA at its proximal trifurcation. 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 Patient is brought back intervention radiology for possible stent retrieval Subjective: 04/23: intubated yesterday. still encephalopathic. need to watch carefully, going into swell window. neuro exam stable from yesterday per report. IR yesterday performed with patent MCA flow on angio. no intervention performed. 2: no improvements in mental status on sedation vacation. palliative met with family yesterday and they want to be aggressive for a few days and re- evaluate. 04/25: no changes. off sedation x 24h. poor neuro exam. Cr slightly above baseline. uop borderline, but net + every day and clinically appears euvolemic. 04/26: no improvements in mental status off sedation. palliative met with family today and code status changed to DNR/no CPR. family going to meet tonight to talk about withdraw of care. Objective Vital Signs Date Time Temp Pulse Resp B/P (MAP) Pulse Ox O2 Delivery O2 Flow Rate FiO2 04/26/17 14:00 77 04/26/17 12:10 100 40 04/26/17 07:00 Mechanical Ventilator 04/26/17 04:00 98.6 23 175/78 (110) Intake and Output 04/26/17 04/26/17 04/27/17 08:00 16:00 00:00 Intake Total 749 ml Output Total 550 ml Balance 199 ml Result Diagram: 04/26/17 0415 04/26/17 0415 Imaging Last Impressions Neck CTA 04/22/17 1026 Signed Impressions: Service Date/Time: March 10:32 - CONCLUSION: No evidence of significant carotid stenosis Obi Macedo MD Head CTA 04/22/17 1026 Signed Impressions: Service Date/Time: March 10:25 - CONCLUSION: Left MCA occlusion. Findings were reported to Dr. Flores and Dr. Kate at 1100 hrs. Obi Macedo MD Head CT 04/22/17 0000 Signed Impressions: Service Date/Time: March 10:25 - CONCLUSION: No acute intracranial findings. Extensive chronic ischemic sequela Obi Macedo MD Objective Remarks GENERAL: elderly male, lying in bed, intubated, encephalopathic. SKIN: Warm and dry. HEAD: Atraumatic. Normocephalic. EYES: Pupils equal and round. No scleral icterus. No injection or drainage. ENT: No nasal bleeding or discharge. Mucous membranes pink and moist. NECK: Trachea midline. No JVD. CARDIOVASCULAR: Regular rate and rhythm. RESPIRATORY: intubated, full support. PRVC. GASTROINTESTINAL: Abdomen soft, non-tender, nondistended. no guarding. MUSCULOSKELETAL: Extremities without clubbing, cyanosis, or edema. No obvious deformities. NEUROLOGICAL: RASS -4. weakly withdraws to pain. does not follow commands. pupils equal, sluggishly reactive. A/P Assessment and Plan Assessment: 82yM s/p large left MCA CVA. given large distribution of ischemic brain, poor prognosis. unable to be completely intervened upon. continue frequent neuro checks. permissive hypertension. palliative involved. will look towards family goals of care to decide ongoing treatments. for now, continue neuro checks and supportive care. 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 Kate/neurology CT brain revealed old left frontal/parietal encephalomalacia in bilateral basal ganglia CVA CTA brain revealed occlusion left MCA. right LABOR OPERATOR CT neck no acute occlusions Dr. Macedo - IR for stent retrieval no thrombus noted Currently on aspirin 81 mg daily. Goal keep systolic blood pressure less than 220/120 2-D echocardiogram: normal LV function. Hemoglobin A1c/TSH ordered PT/OT/ST evaluate and treat haldol 5mg iv q4h prn for agitation minimize as many sedating meds as possible. prop or fent drips only as needed for sedation/agitation not controlled with haldol. CV: Hypertensive emergency History of hypertension Dyslipidemia Coronary artery disease - nonobstructive Atrial fibrillation - currently rate controlled currently off cardene drip meeting pressure goals. Heart catheterization 07/[address] Mejía revealed EF 60%. Nonobstructive coronary artery disease. Home medications include losartan 50 mg twice a day and hydrochlorothiazide 25 mg daily for hypertension Home medication is atorvastatin 40 mg daily for dyslipidemia Continue aspirin by mouth daily Resp: History COPD Acute hypoxic and hypercarbic respiratory failure - persistent. wean fio2 for goal spo2 > 90% daily sbt's no extubation until mental status improves. intubated 04/22 for declining mental status and hypoxia. PT consults. OOB to stretcher chair. GI: Gastroesophageal reflux disease History of colon cancer status post resection 2010 Acute protein calorie malnutrition- severe. Constipation - resolved. DHT. on TFs. On famotidine 20 mg by mouth twice a day for gastroesophageal reflux disease having daily BMs on increased regimen. continue. : History of ED Urinary retention started cardura 04/23. keep garza additional day today, pending goals of care discussion tomorrow. Endo: Sliding-scale insulin if indicated to maintain euglycemia control 130 to 180 Renal: Chronic kidney disease stage II Creatinine currently within normal limits Monitor urine output Accurate I's and O's Heme: History of melanoma/SCC of the forehead? Recent excision 2 weeks ago Hypercoagulable state on chronic Rivaroxaban - unclear if acquired or inherited PT/PTT elevation Monitor CBC daily. Resume anticoagulation when okay with neurology ID: History of shingles Monitor for infection MSK: PT/OT evaluate and treat FEN: Replace electrolytes as clinically indicated Access - Utilize peripheral IVs Prophylaxis - GI - famotidine - DVT - SCD Butch Sommers MD Apr 26, 2017 16:19
[2017-04-26] MEDS: ATORVASTATIN 40 MG TAB PO SCH (21:33)
[2017-04-26] MEDS: SODIUM CHLORIDE 0.9% FLUSH 10 ML FLUSH IV FLUSH SCH (21:34)
[2017-04-27] VITALS (18 sets, daily range): BP systolic 152–187; BP diastolic 67–77; PULSE 67–87; RESP 16–29; TEMP 98.6–100.1; O2SAT 97–99
[2017-04-27] MEDS: LABETALOL HCL 100 MG/20 ML VIAL IV PUSH PRN ×4 (01:28→16:03)
[2017-04-27] MEDS: hydrALAZINE HCL 20 MG/ML VIAL IV PUSH PRN ×2 (03:56→23:07)
[2017-04-27 04:48] LABS: HEMATOCRIT 30.6 % (39.0-51.0); MEAN CELL VOLUME 91.9 FL (80.0-100.0); MEAN CORPUSCULAR HGB CONC 33.7 % (32.0-36.0); PLATELET COUNT 195 TH/MM3 (150-450); RED BLOOD COUNT 3.33 MIL/MM3 (4.50-5.90); RED CELL DISTRIBUTION WIDTH 13.2 % (11.6-17.2); REVIEW FLAG FINAL
[2017-04-27 05:12] LABS: POTASSIUM 3.7 MEQ/L (3.5-5.1)
[2017-04-27] MEDS: INSULIN NovoLIN REGULAR SUPPLEMENTAL SCALE SQ SCH ×5 (06:40→23:33)
[2017-04-27] MEDS: LACTULOSE SYRUP 20 GM/30 ML CUP PO SCH ×2 (09:00→20:52)
[2017-04-27] MEDS: BISACODYL 10 MG SUPP RECTAL SCH (09:00)
[2017-04-27] MEDS: POLYETHYLENE GLYCOL 17 GM PKG PO SCH ×2 (09:00→20:52)
[2017-04-27] MEDS: DOXAZOSIN MESYLATE 2 MG TAB PO SCH (10:08)
[2017-04-27] MEDS: FAMOTIDINE 20 MG TAB PO SCH ×2 (10:08→21:08)
[2017-04-27] MEDS: ASPIRIN 81 MG CHEW TAB PO SCH (10:08)
[2017-04-27] MEDS: SODIUM CHLORIDE 0.9% FLUSH 10 ML FLUSH IV FLUSH SCH ×2 (10:08→21:07)
[2017-04-27] MEDS: CHLORHEXIDINE 0.12% (ORAL KIT) 15 ML CUP MT SCH ×2 (10:08→21:07)
[2017-04-27] MEDS: RIVAROXABAN 20 MG TAB PO SCH (10:09)
[2017-04-27] MEDS: DOCUSATE SODIUM 50 MG/SENNA 8.6 MG TAB PO SCH ×2 (10:09→20:53)
[2017-04-27] MEDS: HYDROCHLOROTHIAZIDE 25 MG TAB PO SCH (10:10)
[2017-04-27] MEDS: FLUoxetine HCL 10 MG CAP PO SCH (10:11)
--- NOTE | 2017-04-27 14:57 | HHI.CCPN ---
Subjective Remarks/Hospital Course Hospital Course: This is an 82-year-old male. Date of admission 04/22/2017. 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 He presents to [facility] today as a stroke alert. Evaluated by Dr. Kate/neurology. Symptoms included right-sided hemiparesis with a left-sided gaze. Patient was hypertensive and started on nicardipine drip. Given 300 mg aspirin per rectum 1. CT brain revealed chronic ischemic changes including right frontal/parietal and cephalization old right lateral basal ganglia CVA. CT angiogram of the brain revealed occlusion the left MCA at its proximal trifurcation. origin of right BLACKJACK DEALER. Patient is brought back intervention radiology for possible stent retrieval Subjective: 04/23: intubated yesterday. still encephalopathic. need to watch carefully, going into swell window. neuro exam stable from yesterday per report. IR yesterday performed with patent MCA flow on angio. no intervention performed. 04/24: no improvements in mental status on sedation vacation. palliative met with family yesterday and they want to be aggressive for a few days and re- evaluate. 04/25: no changes. off sedation x 24h. poor neuro exam. Cr slightly above baseline. uop borderline, but net + every day and clinically appears euvolemic. 04/26: no improvements in mental status off sedation. palliative met with family today and code status changed to DNR/no CPR. family going to meet tonight to talk about withdraw of care. 04/27: no improvements. remains encephalopathic. palliative met again today, family considering withdraw of care. Objective Vital Signs Date Time Temp Pulse Resp B/P (MAP) Pulse Ox O2 Delivery O2 Flow Rate FiO2 04/27/17 11:35 98 35 04/27/17 10:00 86 04/27/17 08:00 98.6 23 175/77 (109) 04/27/17 07:00 Mechanical Ventilator Intake and Output 04/27/17 04/27/17 04/28/17 08:00 16:00 00:00 Intake Total 1794 ml 80 ml Output Total 450 ml Balance 1344 ml 80 ml Result Diagram: 04/27/17 04004/27/172 Imaging Last Impressions Neck CTA 04/22/17 1026 Signed Impressions: Service Date/Time: March 10:32 - CONCLUSION: No evidence of significant carotid stenosis Obi Macedo MD Head CTA 04/22/17 1026 Signed Impressions: Service Date/Time: March 10:25 - CONCLUSION: Left MCA occlusion. Findings were reported to Dr. Flores and Dr. Kate at 1100 hrs. Obi Macedo MD Head CT 04/22/17 0000 Signed Impressions: Service Date/Time: March 10:25 - CONCLUSION: No acute intracranial findings. Extensive chronic ischemic sequela Obi Macedo MD Objective Remarks GENERAL: elderly male, lying in bed, intubated, encephalopathic. SKIN: Warm and dry. HEAD: Atraumatic. Normocephalic. EYES: Pupils equal and round. No scleral icterus. No injection or drainage. ENT: No nasal bleeding or discharge. Mucous membranes pink and moist. NECK: Trachea midline. No JVD. CARDIOVASCULAR: Regular rate and rhythm. RESPIRATORY: intubated, full support. PRVC. GASTROINTESTINAL: Abdomen soft, non-tender, nondistended. no guarding. MUSCULOSKELETAL: Extremities without clubbing, cyanosis, or edema. No obvious deformities. NEUROLOGICAL: RASS -4. weakly withdraws to pain. does not follow commands. pupils equal, sluggishly reactive. A/P Assessment and Plan Assessment: 82yM s/p large left MCA CVA. given large distribution of ischemic brain, poor prognosis. unable to be completely intervened upon. continue frequent neuro checks. permissive hypertension. palliative involved. will look towards family goals of care to decide ongoing treatments. for now, continue neuro checks and supportive care. 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 Kate/neurology CT brain revealed old left frontal/parietal encephalomalacia in bilateral basal ganglia CVA CTA brain revealed occlusion left MCA. right BLACKJACK DEALER CT neck no acute occlusions Dr. Macedo - IR for stent retrieval no thrombus noted Currently on aspirin 81 mg daily. Goal keep systolic blood pressure less than 220/120 2-D echocardiogram: normal LV function. Hemoglobin A1c/TSH ordered PT/OT/ST evaluate and treat haldol 5mg iv q4h prn for agitation minimize as many sedating meds as possible. prop or fent drips only as needed for sedation/agitation not controlled with haldol. CV: Hypertensive emergency History of hypertension Dyslipidemia Coronary artery disease - nonobstructive Atrial fibrillation - currently rate controlled Heart catheterization 07/[address] Mejía revealed EF 60%. Nonobstructive coronary artery disease. Home medications include losartan 50 mg twice a day and hydrochlorothiazide 25 mg daily for hypertension Home medication is atorvastatin 40 mg daily for dyslipidemia Continue aspirin by mouth daily Resp: History COPD Acute hypoxic and hypercarbic respiratory failure - persistent. wean fio2 for goal spo2 > 90% daily sbt's no extubation until mental status improves. intubated 04/22 for declining mental status and hypoxia. PT consults. OOB to stretcher chair. GI: Gastroesophageal reflux disease History of colon cancer status post resection 2010 Acute protein calorie malnutrition- severe. Constipation - resolved. DHT. on TFs. On famotidine 20 mg by mouth twice a day for gastroesophageal reflux disease having daily BMs on increased regimen. continue. : History of ED Urinary retention started cardura 04/23. d/c garza today. Endo: Sliding-scale insulin if indicated to maintain euglycemia control 130 to 180 Renal: Chronic kidney disease stage II Creatinine currently within normal limits Monitor urine output Accurate I's and O's Heme: History of melanoma/SCC of the forehead? Recent excision 2 weeks ago Hypercoagulable state on chronic Rivaroxaban - unclear if acquired or inherited PT/PTT elevation Monitor CBC daily. Resume anticoagulation when okay with neurology ID: History of shingles Monitor for infection MSK: PT/OT evaluate and treat FEN: Replace electrolytes as clinically indicated Access - Utilize peripheral IVs Prophylaxis - GI - famotidine - DVT - SCD Butch Sommers MD Apr 27, 2017 14:57
--- NOTE | 2017-04-27 18:18 | HHI.HCPN ---
Reason for visit a. To assist with evaluation and management of symptoms including: Dyspnea , dysphagia; encephalopathy b. To assist medical decision maker(s) with: better understanding of current medical conditions; weighing benefits/burdens of medical treatment options; making medical treatment decisions. . Subjective/Interval History Patient remains intubated, mechanically ventilated and minimally responsive in the SICU. He is now off all sedation. No significant neurologic change overnight. More spontaneous movements but not awakening. Tmax 101.2. RR up to 29 -- has some thick secretions. FI02 remains 35-40%. BPs continue in the 150s to 180s systolic. CBC / chem panel stable. No new imaging. . . Family/friend interactions Spoke with at bedside for about 20 minutes. She informs me that the patient's children are all planning on flying here and are anticipated to arrive later today. I have offered to meet with them. Spouse otherwise does not want to make any decisions regarding possible withdrawal of life support or other de-escalation of treatment until children arrive. I answer her questions. . Advance Directives Living Will: Copy in medical record Health Care Surrogate: Copy in medical record Durable Power of Consultant Education: Never completed Advance Directive Specifics Date completed: Combined living will and health care surrogate designations were completed on . Health Care Surrogate(s): Patient has designated his -- Leonela Rojas -- as his health care surrogate. . Documented care wishes: Living will indicates he would not want life prolonged should he be found to have a terminal or end-stage condition. He would NOT want artificial nutrition/ hydration. . Objective Vital Signs Date Time Temp Pulse Resp B/P (MAP) Pulse Ox O2 Delivery O2 Flow Rate FiO2 04/27/17 16:42 99 35 04/27/17 16:00 40 04/27/17 16:00 98.9 87 29 187/77 (113) 98 04/27/17 16:00 87 04/27/17 14:00 75 04/27/17 12:00 40 04/27/17 12:00 98.6 79 29 152/67 (95) 98 04/27/17 12:00 79 04/27/17 11:35 98 35 04/27/17 10:00 86 04/27/17 08:15 40 04/27/17 08:14 98 35 04/27/17 08:14 35 04/27/17 08:00 81 04/27/17 08:00 40 04/27/17 08:00 98.6 81 23 175/77 (109) 98 04/27/17 07:00 98 Mechanical Ventilator 40 04/27/17 06:00 86 04/27/17 04:06 99 40 04/27/17 04:00 40 04/27/17 04:00 99.2 83 16 182/75 (110) 99 04/27/17 04:00 83 04/27/17 02:00 68 04/27/17 00:39 99 40 04/27/17 00:00 82 04/27/17 00:00 40 04/26/17 22:00 75 04/26/17 21:42 99 40 04/26/17 20:00 101.2 79 28 170/74 (106) 99 04/26/17 20:00 79 04/26/17 20:00 40 04/26/17 19:00 99 Mechanical Ventilator 40 Intake & Output 04/27/17 04/27/17 07:00 19:00 Intake Total 1794 ml 80 ml Output Total 450 ml Balance 1344 ml 80 ml Tube Feeding 1374 ml Other 420 ml 80 ml Output Urine Total 450 ml # Bowel Movements 2 1 Physical Exam CONSTITUTIONAL/GENERAL: This is an adequately nourished patient, in no apparent distress, mechanical ventilation, sedation. Rare spontaneous movement of extremities. No apparent distress. TUBES/LINES/DRAINS: SCDs, peripheral IV access, endotracheal tube, OG tube, Chapa SKIN: No jaundice, rashes, there is a healing surgical site on his upper forehead where the SCC was excised 2 weeks ago. Ecchymoses on upper extremities. No wounds seen anteriorly. Skin temperature appropriate. Not diaphoretic. HEAD: Atraumatic. Normocephalic. EYES: Pupils equal and reactive. No scleral icterus. No injection or drainage. Fundi not examined. ENT: Nose without bleeding or purulent drainage. Oropharynx difficult to visualize due to intubations. This yellowish secretions in suction apparatus. NECK: Trachea midline. CARDIOVASCULAR: Regular rate/rhythm without murmurs, gallops, or rubs. No JVD. RESPIRATORY/CHEST: Symmetric, unlabored respirations. Clear to auscultation. Breath sounds equal bilaterally. No wheezes, rales, or rhonchi. GASTROINTESTINAL: Abdomen soft, non-tender, nondistended. No hepato-splenomegaly , or palpable masses. No guarding. Bowel sounds present. GENITOURINARY: Without palpable bladder distension. Chapa catheter in place. MUSCULOSKELETAL: Extremities without clubbing, cyanosis, or edema. No mottling. LYMPHATICS: Not examined. NEUROLOGICAL: Unable to follow commands.. Rare spontaneous movements of extremities. Withdraws to noxious stimuli all 4 extremities but more movement on left. PSYCHIATRIC: Unable to evaluate due to clinical condition . Diagnostic Tests Laboratory Laboratory Tests Test 04/25/17 05:47 04/26/17 04:15 04/27/17 04:02 White Blood Count 11.2 TH/MM3 (4.0-11.0) 11.2 TH/MM3 (4.0-11.0) 10.0 TH/MM3 (4.0-11.0) Red Blood Count 3.32 MIL/MM3 (4.50-5.90) 3.45 MIL/MM3 (4.50-5.90) 3.33 MIL/MM3 (4.50-5.90) Hemoglobin 10.2 GM/DL (13.0-17.0) 10.8 GM/DL (13.0-17.0) 10.3 GM/DL (13.0-17.0) Hematocrit 30.6 % (39.0-51.0) 32.0 % (39.0-51.0) 30.6 % (39.0-51.0) Mean Corpuscular Volume 92.1 FL (80.0-100.0) 92.8 FL (80.0-100.0) 91.9 FL (80.0-100.0) Mean Corpuscular Hemoglobin 30.6 PG (27.0-34.0) 31.2 PG (27.0-34.0) 31.0 PG (27.0-34.0) Mean Corpuscular Hemoglobin Concent 33.2 % (32.0-36.0) 33.6 % (32.0-36.0) 33.7 % (32.0-36.0) Red Cell Distribution Width 13.6 % (11.6-17.2) 13.2 % (11.6-17.2) 13.2 % (11.6-17.2) Platelet Count 162 TH/MM3 (150-450) 172 TH/MM3 (150-450) 195 TH/MM3 (150-450) Mean Platelet Volume 8.6 FL (7.0-11.0) 9.0 FL (7.0-11.0) 8.5 FL (7.0-11.0) Blood Urea Nitrogen 34 MG/DL (7-18) 32 MG/DL (7-18) 36 MG/DL (7-18) Creatinine 1.14 MG/DL (0.60-1.30) 0.83 MG/DL (0.60-1.30) 0.79 MG/DL (0.60-1.30) Random Glucose 159 MG/DL (74-106) 152 MG/DL (74-106) 148 MG/DL (74-106) Calcium Level 8.5 MG/DL (8.5-10.1) 8.7 MG/DL (8.5-10.1) 8.5 MG/DL (8.5-10.1) Sodium Level 141 MEQ/L (136-145) 142 MEQ/L (136-145) 140 MEQ/L (136-145) Potassium Level 3.7 MEQ/L (3.5-5.1) 3.6 MEQ/L (3.5-5.1) 3.7 MEQ/L (3.5-5.1) Chloride Level 106 MEQ/L (98-107) 105 MEQ/L (98-107) 103 MEQ/L (98-107) Carbon Dioxide Level 27.6 MEQ/L (21.0-32.0) 31.3 MEQ/L (21.0-32.0) 31.0 MEQ/L (21.0-32.0) Anion Gap 7 MEQ/L (5-15) 6 MEQ/L (5-15) 6 MEQ/L (5-15) Estimat Glomerular Filtration Rate 61 ML/MIN (>89) 88 ML/MIN (>89) 94 ML/MIN (>89) . Result Diagram: 04/27/1740104/27/17401 Imaging Last Impressions Neck CTA 04/22/17 1026 Signed Impressions: Service Date/Time: March 10:32 - CONCLUSION: No evidence of significant carotid stenosis Obi Macedo MD Head CTA 04/22/17 1026 Signed Impressions: Service Date/Time: March 10:25 - CONCLUSION: Left MCA occlusion. Findings were reported to Dr. Flores and Dr. Kate at 1100 hrs. Obi Macedo MD Head CT 04/22/17 0000 Signed Impressions: Service Date/Time: March 10:25 - CONCLUSION: No acute intracranial findings. Extensive chronic ischemic sequela Obi Macedo MD Chest X-Ray 04/22/17 0000 Signed Impressions: Service Date/Time: March 13:53 - CONCLUSION: 1. Status post intubation. 2. No acute cardiopulmonary disease. Joni Akbar MD Cerebral Arteriogram 04/22/17 0000 Signed Impressions: Service Date/Time: March 11:10 - CONCLUSION: Interval spontaneous recanalization of middle cerebral artery occlusion. Catheter directed stroke therapy was not required. Obi Macedo MD ADDENDUM: The cerebral circulation was TICI-2b Keron Mathis MD Brain MRI 04/22/17 0000 Signed Impressions: Service Date/Time: March 21:14 - CONCLUSION: 1. There is acute infarction involving the posterior left frontal, left temporal, and left parietal lobes. The area of acute infarction involves the left basal ganglia and the left caudate head. 2. Increased signal throughout the cerebral and pontine white matter likely secondary to small vessel ischemic change. 3. Right parietal encephalomalacia. Obi Live MD . Procedures INTUBATION 04/22/17 Interventional Radiology 04/22/17 -- no thrombus noted at time patient was brought to IR. . 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 . (2) encephalopathy 0-10 Scale: Unable to quantify Comment: Not awakening post stroke in spite of withholding all sedating medications. . 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 Legal: The patient lacks capacity for decision-making, and it is unlikely that he will regain that capacity. The patient's Leonela is the proxy decision -maker. Ethical issues impacting care: None . Important Contacts Spouse: Leonela Rojas Home: . Prognosis The patient's prognosis is poor unless there is a somewhat miraculous neurologic recovery. He has suffered a major stroke. Neurology feels patient could survive with ongoing aggressive care, but will likely never regain speech and will likely be dependent and needing near total care. He will be a candidate for hospice services if/when the goals become comfort oriented. . . Code Status: No Code ( has agreed to NO CODE status per the discussion with Dr. Morris on 04/26/17 and after discussion regarding prognosis with Dr. Kate by phone. ) Plan == NO CODE: has agreed to NO CODE status per the discussion with Dr. Morris on 04/26/17 and after discussion regarding prognosis with Dr. Kate by phone on the same day. == DECISION-MAKING: The patient lacks capacity for decision-making, and it is unlikely that he will regain that capacity. The patient's Leonela is the designated health care surrogate. == GOALS: has agreed to DNR status. We will continue aggressive care short of resuscitation for now. She awaits arrival of patient's children before making further decisions regarding possible de-escalation of medical treatment. She seems certain that patient would not want life prolonging measures given his prognosis so I anticipate she will want to transition to "comfort measures only" over the next days unless children desire ongoing aggressive care. == SYMPTOMS: * Dyspnea is being managed with mechanical ventilation. No further recommendations at this time. * Pain: there are no obvious signs of pain. I have no additional medication recommendations at this time. * Encephalopathy: this is secondary to the major stroke. Will probably improve slightly over time, but given extent of stroke, anticipate profound permanent change. ==Spiritual support is being provided by the patient's office assistant and deacon from [facility]. == Attempted to meet with children around 17:30 on 04/27. they had already left. Will attempt again on 04/28. == Palliative care will continue to follow to assist with symptom management and to further clarify goals of medical treatment as the clinical course evolves. . . Time Spent Total Floor Time (mins): 35 (Total time includes chart review, patient exam, discussion of case with Dr. Sommers, above referenced bedside discussion with , and documentation.) Face to Face Time (mins): 25 >50% Counseling/Coord of Care: Yes Attestation To help prompt me to consider important information that might be impacting today's encounter and assessment, information from prior notes written by myself or my colleagues may have been "brought forward" into today's note. My signature on this note, however, is an attestation that I personally performed the exam, history, and/or decision-making noted today, and, unless otherwise indicated, the interactions with patient, family, and staff as well as the review of records all occurred today. I also attest that the listed assessment and stated plan reflect my best clinical judgment today based on the combination of historical information, prior notes, and today's exam/ interactions. When time spent is documented, it refers only to time spent today by the signer, or if indicated, combined time spent today by collaborating physician/nurse practitioner. . Manas Morris MD Apr 27, 2017 18:18
[2017-04-27] MEDS: ATORVASTATIN 40 MG TAB PO SCH (21:07)
[2017-04-28] VITALS (21 sets, daily range): BP systolic 161–208; BP diastolic 71–121; PULSE 69–92; RESP 19–25; TEMP 98.3–99.6; O2SAT 97–100
[2017-04-28] MEDS: CHLORHEXIDINE GLUCONATE 2 % 1 PACK (2 CLOTHS) TOP SCH (01:35)
[2017-04-28] MEDS: LABETALOL HCL 100 MG/20 ML VIAL IV PUSH PRN ×5 (03:08→20:57)
[2017-04-28] MEDS: INSULIN NovoLIN REGULAR SUPPLEMENTAL SCALE SQ SCH ×3 (05:36→18:00)
[2017-04-28 07:00] LABS: HEMATOCRIT 31.7 % (39.0-51.0); MEAN CELL VOLUME 92.1 FL (80.0-100.0); MEAN CORPUSCULAR HEMOGLOBIN 30.4 PG (27.0-34.0); PLATELET COUNT 238 TH/MM3 (150-450); RED BLOOD COUNT 3.44 MIL/MM3 (4.50-5.90); RED CELL DISTRIBUTION WIDTH 13.6 % (11.6-17.2); REVIEW FLAG FINAL; WHITE BLOOD COUNT 11.2 TH/MM3 (4.0-11.0)
[2017-04-28 07:22] LABS: BICARBONATE 31.8 MEQ/L (21.0-32.0); POTASSIUM 3.7 MEQ/L (3.5-5.1)
--- NOTE | 2017-04-28 07:58 | HHI.PR ---
Subjective Remarks much more alert Objective Vital Signs Date Time Temp Pulse Resp B/P (MAP) Pulse Ox O2 Delivery O2 Flow Rate FiO2 04/28/17 06:00 69 04/28/17 04:00 72 04/28/17 04:00 35 04/28/17 04:00 98.5 72 19 175/76 (109) 98 04/28/17 03:58 98 40 04/28/17 02:00 84 04/28/17 00:20 99 40 04/28/17 00:00 35 04/28/17 00:00 78 04/28/17 00:00 99.0 78 23 161/71 (101) 98 04/27/17 22:00 67 04/27/17 20:26 97 40 04/27/17 20:00 35 04/27/17 20:00 100.1 78 20 175/73 (107) 98 04/27/17 20:00 78 04/27/17 19:00 99 Mechanical Ventilator 35 04/27/17 18:00 83 04/27/17 16:42 99 35 04/27/17 16:00 40 04/27/17 16:00 98.9 87 29 187/77 (113) 98 04/27/17 16:00 87 04/27/17 14:00 75 04/27/17 12:00 40 04/27/17 12:00 98.6 79 29 152/67 (95) 98 04/27/17 12:00 79 04/27/17 11:35 98 35 04/27/17 10:00 86 04/27/17 08:15 40 04/27/17 08:14 98 35 04/27/17 08:14 35 04/27/17 08:00 81 04/27/17 08:00 40 04/27/17 08:00 98.6 81 23 175/77 (109) 98 I/O 04/27/17 04/27/17 04/27/17 04/28/17 04/28/17 04/28/17 07:00 15:00 23:00 07:00 15:00 23:00 Intake Total 1794 ml 80 ml 836 ml 536 ml Output Total 450 ml 450 ml 350 ml Balance 1344 ml 80 ml 386 ml 186 ml Tube Feeding 1374 ml 776 ml 476 ml Other 420 ml 80 ml 60 ml 60 ml Output Urine Total 450 ml 450 ml 350 ml # Voids 1 # Bowel Movements 2 1 2 2 Result Diagram: 04/28/17 0552 04/28/17 0552 Objective Remarks opens eyes not follow commands makes eye contact moves left nl not rue 0/5 and lle 1/5 Assessment and Plan Assessment and Plan imp nasra crawford he has by mri had old r parietal cva and new left mca post and some ant division and some deep cva nurse noted some rue movement last pm after clot disintegrated in left mca he is on a small amt dip and evidently fentanyl i think best thinbg is to get him off all sedatives and see what he can do so we can decide his level of disability to decide px and course of action i will be back wednesday to do this if we can get him off sedatives and maybe off vent wed or wednesday? if earlier call dr hanley turf sales person and he can give his px opinion if off sedatives 04/26/17 moving quite a bit not following commands kyaw some aphasia unfortunately he got haldol and ativan last 2 days so that effects his and my mental status exam/fxt i dced these i dw nursing regardless [facility] living for rest of life but can survive this vs hospice up to what she wants to do she can call me when she comes intoday via nursing 04/28/17 much better as sedatives wore off awake now not follow commands kyaw aphasic or may be certainly i dw yest about [facility] living after this and if that is something he would want maybe we could get him off vent and see how does and decide if hospice or not then no sedatives Keron Cooper MD Apr 28, 2017 07:58
[2017-04-28] MEDS: CHLORHEXIDINE 0.12% (ORAL KIT) 15 ML CUP MT SCH ×2 (08:33→20:18)
[2017-04-28] MEDS: DOCUSATE SODIUM 50 MG/SENNA 8.6 MG TAB PO SCH ×2 (09:00→19:41)
[2017-04-28] MEDS: BISACODYL 10 MG SUPP RECTAL SCH (09:00)
[2017-04-28] MEDS: LACTULOSE SYRUP 20 GM/30 ML CUP PO SCH ×2 (09:00→19:41)
[2017-04-28] MEDS: POLYETHYLENE GLYCOL 17 GM PKG PO SCH ×2 (09:00→19:41)
[2017-04-28] MEDS: DOXAZOSIN MESYLATE 2 MG TAB PO SCH (09:33)
[2017-04-28] MEDS: RIVAROXABAN 20 MG TAB PO SCH (09:33)
[2017-04-28] MEDS: FLUoxetine HCL 10 MG CAP PO SCH (09:34)
[2017-04-28] MEDS: FAMOTIDINE 20 MG TAB PO SCH ×2 (09:34→20:17)
[2017-04-28] MEDS: HYDROCHLOROTHIAZIDE 25 MG TAB PO SCH (09:34)
[2017-04-28] MEDS: ASPIRIN 81 MG CHEW TAB PO SCH (09:34)
[2017-04-28] MEDS: SODIUM CHLORIDE 0.9% FLUSH 10 ML FLUSH IV FLUSH SCH ×2 (09:35→20:17)
--- NOTE | 2017-04-28 10:26 | HHI.CCPN ---
Subjective Remarks/Hospital Course Hospital Course: This is an 82-year-old male. Date of admission 04/22/2017. 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 He presents to [facility] today as a stroke alert. Evaluated by Dr. Kate/neurology. Symptoms included right-sided hemiparesis with a left-sided gaze. Patient was hypertensive and started on nicardipine drip. Given 300 mg aspirin per rectum 1. CT brain revealed chronic ischemic changes including right frontal/parietal and cephalization old right lateral basal ganglia CVA. CT angiogram of the brain revealed occlusion the left MCA at its proximal trifurcation. origin of right NAILER HAND. Patient is brought back intervention radiology for possible stent retrieval Subjective: 04/23: intubated yesterday. still encephalopathic. need to watch carefully, going into swell window. neuro exam stable from yesterday per report. IR yesterday performed with patent MCA flow on angio. no intervention performed. 2: no improvements in mental status on sedation vacation. palliative met with family yesterday and they want to be aggressive for a few days and re- evaluate. 04/25: no changes. off sedation x 24h. poor neuro exam. Cr slightly above baseline. uop borderline, but net + every day and clinically appears euvolemic. 04/26: no improvements in mental status off sedation. palliative met with family today and code status changed to DNR/no CPR. family going to meet tonight to talk about withdraw of care. 04/27: no improvements. remains encephalopathic. palliative met again today, family considering withdraw of care. 04/28: more movements today, but not following commands. family does not think patient would want to live fully dependent on medical care. still not awake enough to protect airway, on vent. Objective Vital Signs Date Time Temp Pulse Resp B/P (MAP) Pulse Ox O2 Delivery O2 Flow Rate FiO2 04/28/17 08:55 100 35 04/28/17 06:00 69 04/28/17 04:00 98.5 19 175/76 (109) 04/27/17 19:00 Mechanical Ventilator Intake and Output 04/28/17 04/28/17 04/29/17 08:00 16:00 00:00 Intake Total 536 ml Output Total 350 ml Balance 186 ml Result Diagram: 04/28/17 0552 04/28/17 0552 Imaging Last Impressions Neck CTA 04/22/17 1026 Signed Impressions: Service Date/Time: March 10:32 - CONCLUSION: No evidence of significant carotid stenosis Obi Macedo MD Head CTA 04/22/17 1026 Signed Impressions: Service Date/Time: March 10:25 - CONCLUSION: Left MCA occlusion. Findings were reported to Dr. Flores and Dr. Kate at 1100 hrs. Obi Macedo MD Head CT 04/22/17 0000 Signed Impressions: Service Date/Time: March 10:25 - CONCLUSION: No acute intracranial findings. Extensive chronic ischemic sequela Obi Macedo MD Objective Remarks GENERAL: elderly male, lying in bed, intubated, encephalopathic. SKIN: Warm and dry. HEAD: Atraumatic. Normocephalic. EYES: Pupils equal and round. No scleral icterus. No injection or drainage. ENT: No nasal bleeding or discharge. Mucous membranes pink and moist. NECK: Trachea midline. No JVD. CARDIOVASCULAR: Regular rate and rhythm. RESPIRATORY: intubated, full support. PRVC. GASTROINTESTINAL: Abdomen soft, non-tender, nondistended. no guarding. MUSCULOSKELETAL: Extremities without clubbing, cyanosis, or edema. No obvious deformities. NEUROLOGICAL: RASS -3. withdraws to pain. does not follow commands. pupils equal , sluggishly reactive. A/P Assessment and Plan Assessment: 82yM s/p large left MCA CVA. given large distribution of ischemic brain, poor prognosis. unable to be completely intervened upon. continue frequent neuro checks. permissive hypertension. palliative involved. will look towards family goals of care to decide ongoing treatments. for now, continue neuro checks and supportive care. 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 Kate/neurology CT brain revealed old left frontal/parietal encephalomalacia in bilateral basal ganglia CVA CTA brain revealed occlusion left MCA. right NAILER HAND CT neck no acute occlusions Dr. Macedo - IR for stent retrieval no thrombus noted Currently on aspirin 81 mg daily. Goal keep systolic blood pressure less than 220/120 2-D echocardiogram: normal LV function. PT/OT/ST evaluate and treat haldol 5mg iv q4h prn for agitation minimize as many sedating meds as possible. prop or fent drips only as needed for sedation/agitation not controlled with haldol. CV: Hypertensive emergency History of hypertension Dyslipidemia Coronary artery disease - nonobstructive Atrial fibrillation - currently rate controlled Heart catheterization 07/[address] Mejía revealed EF 60%. Nonobstructive coronary artery disease. Home medications include losartan 50 mg twice a day and hydrochlorothiazide 25 mg daily for hypertension Home medication is atorvastatin 40 mg daily for dyslipidemia Continue aspirin by mouth daily Resp: History COPD Acute hypoxic and hypercarbic respiratory failure - persistent. wean fio2 for goal spo2 > 90% daily sbt's no extubation until mental status improves. intubated 04/22 for declining mental status and hypoxia. PT consults. OOB to stretcher chair. GI: Gastroesophageal reflux disease History of colon cancer status post resection 2010 Acute protein calorie malnutrition- severe. Constipation - resolved. DHT. on TFs. On famotidine 20 mg by mouth twice a day for gastroesophageal reflux disease having daily BMs on increased regimen. continue. : History of ED Urinary retention started cardura 04/23. garza removed 04/27. Endo: Sliding-scale insulin if indicated to maintain euglycemia control 130 to 180 Renal: Chronic kidney disease stage II Creatinine currently within normal limits Monitor urine output Accurate I's and O's Heme: History of melanoma/SCC of the forehead? Recent excision 2 weeks ago Hypercoagulable state on chronic Rivaroxaban - unclear if acquired or inherited PT/PTT elevation Monitor CBC daily. Resume anticoagulation when okay with neurology ID: History of shingles Monitor for infection MSK: PT/OT evaluate and treat FEN: Replace electrolytes as clinically indicated Access - Utilize peripheral IVs Prophylaxis - GI - famotidine - DVT - SCD Butch Sommers MD Apr 28, 2017 10:26
--- NOTE | 2017-04-28 11:39 | HHI.HCPN ---
Reason for visit a. To assist with evaluation and management of symptoms including: Dyspnea , dysphagia; encephalopathy b. To assist medical decision maker(s) with: better understanding of current medical conditions; weighing benefits/burdens of medical treatment options; making medical treatment decisions. . Subjective/Interval History Patient remains intubated, mechanically ventilated in the SICU. He is off all sedation. He is more wakeful today -- eyes will open to stimulation and there is occasional spontaneous eye opening. He is unable to follow commands and is not tracking me. . . Family/friend interactions , three daughters, and a grandson are at bedside. Spoke with family members for 15 minutes. They have recently spoken with Dr. Sommers who addressed what ongoing aggressive care here in the hospital would involve for the patient and what the functiona / cognitive status would likely be post discharge if he survived. Dr. Kate rounded this AM but has not spoke with family yet. Dr. Kate noted increase wakefulness and appears to be advocating for aggressive care, weaning patient off vent, and then making decisons based on neurologic recovery. I have let family know that the patient , with aggressive care, can survive the hospitalization. Aggressive care will likely involve a trach and PEG unless he wakes up soon and is able to protect his airway. The decision making should be based mostly on what gives the patient meaning and purpose and if he would want to endure further procedures and hospitalization in order to achieve what will probably be a highly dependent existence and probably without the ability to speak. Family continues to discuss options. I have explained that the patient will continue to receive aggressive care short of resuscitation until such time as we would hear otherwise from them. . Advance Directives Living Will: Copy in medical record Health Care Surrogate: Copy in medical record Durable Power of Vehicle Body Builder: Never completed Advance Directive Specifics Date completed: Combined living will and health care surrogate designations were completed on . Health Care Surrogate(s): Patient has designated his -- Leonela Rojas -- as his health care surrogate. . Documented care wishes: Living will indicates he would not want life prolonged should he be found to have a terminal or end-stage condition. He would NOT want artificial nutrition/ hydration. . Objective Vital Signs Date Time Temp Pulse Resp B/P (MAP) Pulse Ox O2 Delivery O2 Flow Rate FiO2 04/28/17 10:00 74 04/28/17 08:57 35 04/28/17 08:55 100 35 04/28/17 08:55 35 04/28/17 08:00 87 04/28/17 08:00 35 04/28/17 08:00 99.1 87 23 173/77 (109) 100 04/28/17 07:00 100 Mechanical Ventilator 35 04/28/17 06:00 69 04/28/17 04:00 72 04/28/17 04:00 35 04/28/17 04:00 98.5 72 19 175/76 (109) 98 04/28/17 03:58 98 40 04/28/17 02:00 84 04/28/17 00:20 99 40 04/28/17 00:00 35 04/28/17 00:00 78 04/28/17 00:00 99.0 78 23 161/71 (101) 98 04/27/17 22:00 67 04/27/17 20:26 97 40 04/27/17 20:00 35 04/27/17 20:00 100.1 78 20 175/73 (107) 98 04/27/17 20:00 78 04/27/17 19:00 99 Mechanical Ventilator 35 04/27/17 18:00 83 04/27/17 16:42 99 35 04/27/17 16:00 40 04/27/17 16:00 98.9 87 29 187/77 (113) 98 04/27/17 16:00 87 04/27/17 14:00 75 04/27/17 12:00 40 04/27/17 12:00 98.6 79 29 152/67 (95) 98 04/27/17 12:00 79 04/27/17 11:35 98 35 Intake & Output 04/28/17 04/28/17 07:00 19:00 Intake Total 536 ml 60 ml Output Total 350 ml Balance 186 ml 60 ml Tube Feeding 476 ml Other 60 ml 60 ml Output Urine Total 350 ml # Voids 1 # Bowel Movements 2 1 . Physical Exam CONSTITUTIONAL/GENERAL: This is an adequately nourished patient, in no apparent distress, mechanical ventilation. Some spontaneous eye opening. No apparent distress. TUBES/LINES/DRAINS: SCDs, peripheral IV access, endotracheal tube, OG tube, condom catheter SKIN: No jaundice, rashes, there is a healing surgical site on his upper forehead where the SCC was excised 2 weeks ago. Ecchymoses on upper extremities. No wounds seen anteriorly. Skin temperature appropriate. Not diaphoretic. HEAD: Atraumatic. Normocephalic. EYES: Pupils equal and reactive. No scleral icterus. No injection or drainage. Fundi not examined. ENT: Nose without bleeding or purulent drainage. Oropharynx difficult to visualize due to intubations. This yellowish secretions in suction apparatus. NECK: Trachea midline. CARDIOVASCULAR: Regular rate/rhythm without murmurs, gallops, or rubs. No JVD. RESPIRATORY/CHEST: Symmetric, unlabored respirations. Clear to auscultation. Breath sounds equal bilaterally. No wheezes, rales, or rhonchi. GASTROINTESTINAL: Abdomen soft, non-tender, nondistended. No hepato-splenomegaly , or palpable masses. No guarding. Bowel sounds present. GENITOURINARY: Without palpable bladder distension. Chapa catheter in place. MUSCULOSKELETAL: Extremities without clubbing, cyanosis, or edema. No mottling. LYMPHATICS: Not examined. NEUROLOGICAL: Intermittent spontaneous eye openings but not tracking. Unable to follow commands.. Rare spontaneous movements of extremities. Withdraws to noxious stimuli all 4 extremities but more movement on left. PSYCHIATRIC: Unable to evaluate due to clinical condition . Diagnostic Tests Laboratory Laboratory Tests Test 04/26/17 04:15 04/27/17 04:02 04/28/17 05:52 White Blood Count 11.2 TH/MM3 (4.0-11.0) 10.0 TH/MM3 (4.0-11.0) 11.2 TH/MM3 (4.0-11.0) Red Blood Count 3.45 MIL/MM3 (4.50-5.90) 3.33 MIL/MM3 (4.50-5.90) 3.44 MIL/MM3 (4.50-5.90) Hemoglobin 10.8 GM/DL (13.0-17.0) 10.3 GM/DL (13.0-17.0) 10.5 GM/DL (13.0-17.0) Hematocrit 32.0 % (39.0-51.0) 30.6 % (39.0-51.0) 31.7 % (39.0-51.0) Mean Corpuscular Volume 92.8 FL (80.0-100.0) 91.9 FL (80.0-100.0) 92.1 FL (80.0-100.0) Mean Corpuscular Hemoglobin 31.2 PG (27.0-34.0) 31.0 PG (27.0-34.0) 30.4 PG (27.0-34.0) Mean Corpuscular Hemoglobin Concent 33.6 % (32.0-36.0) 33.7 % (32.0-36.0) 33.0 % (32.0-36.0) Red Cell Distribution Width 13.2 % (11.6-17.2) 13.2 % (11.6-17.2) 13.6 % (11.6-17.2) Platelet Count 172 TH/MM3 (150-450) 195 TH/MM3 (150-450) 238 TH/MM3 (150-450) Mean Platelet Volume 9.0 FL (7.0-11.0) 8.5 FL (7.0-11.0) 9.2 FL (7.0-11.0) Blood Urea Nitrogen 32 MG/DL (7-18) 36 MG/DL (7-18) 42 MG/DL (7-18) Creatinine 0.83 MG/DL (0.60-1.30) 0.79 MG/DL (0.60-1.30) 0.89 MG/DL (0.60-1.30) Random Glucose 152 MG/DL (74-106) 148 MG/DL (74-106) 115 MG/DL (74-106) Calcium Level 8.7 MG/DL (8.5-10.1) 8.5 MG/DL (8.5-10.1) 8.6 MG/DL (8.5-10.1) Sodium Level 142 MEQ/L (136-145) 140 MEQ/L (136-145) 142 MEQ/L (136-145) Potassium Level 3.6 MEQ/L (3.5-5.1) 3.7 MEQ/L (3.5-5.1) 3.7 MEQ/L (3.5-5.1) Chloride Level 105 MEQ/L (98-107) 103 MEQ/L (98-107) 103 MEQ/L (98-107) Carbon Dioxide Level 31.3 MEQ/L (21.0-32.0) 31.0 MEQ/L (21.0-32.0) 31.8 MEQ/L (21.0-32.0) Anion Gap 6 MEQ/L (5-15) 6 MEQ/L (5-15) 7 MEQ/L (5-15) Estimat Glomerular Filtration Rate 88 ML/MIN (>89) 94 ML/MIN (>89) 82 ML/MIN (>89) . Result Diagram: 04/28/1752 04/28/17 0552 Imaging Last Impressions Neck CTA 04/22/17 1026 Signed Impressions: Service Date/Time: March 10:32 - CONCLUSION: No evidence of significant carotid stenosis Obi Macedo MD Head CTA 04/22/17 1026 Signed Impressions: Service Date/Time: March 10:25 - CONCLUSION: Left MCA occlusion. Findings were reported to Dr. Flores and Dr. Kate at 1100 hrs. Obi Macedo MD Head CT 04/22/17 0000 Signed Impressions: Service Date/Time: March 10:25 - CONCLUSION: No acute intracranial findings. Extensive chronic ischemic sequela Obi Macedo MD Chest X-Ray 04/22/17 0000 Signed Impressions: Service Date/Time: March 13:53 - CONCLUSION: 1. Status post intubation. 2. No acute cardiopulmonary disease. Joni Akbar MD Cerebral Arteriogram 04/22/17 0000 Signed Impressions: Service Date/Time: March 11:10 - CONCLUSION: Interval spontaneous recanalization of middle cerebral artery occlusion. Catheter directed stroke therapy was not required. Obi Macedo MD ADDENDUM: The cerebral circulation was TICI-2b Keron Mathis MD Brain MRI 04/22/17 0000 Signed Impressions: Service Date/Time: March 21:14 - CONCLUSION: 1. There is acute infarction involving the posterior left frontal, left temporal, and left parietal lobes. The area of acute infarction involves the left basal ganglia and the left caudate head. 2. Increased signal throughout the cerebral and pontine white matter likely secondary to small vessel ischemic change. 3. Right parietal encephalomalacia. Obi Live MD Procedures Vital Signs Date Time Temp Pulse Resp B/P (MAP) Pulse Ox O2 Delivery O2 Flow Rate FiO2 04/28/17 10:00 74 04/28/17 08:57 35 04/28/17 08:55 100 35 04/28/17 08:55 35 04/28/17 08:00 87 04/28/17 08:00 35 04/28/17 08:00 99.1 87 23 173/77 (109) 100 04/28/17 07:00 100 Mechanical Ventilator 35 04/28/17 06:00 69 04/28/17 04:00 72 04/28/17 04:00 35 04/28/17 04:00 98.5 72 19 175/76 (109) 98 04/28/17 03:58 98 40 04/28/17 02:00 84 04/28/17 00:20 99 40 04/28/17 00:00 35 04/28/17 00:00 78 04/28/17 00:00 99.0 78 23 161/71 (101) 98 04/27/17 22:00 67 04/27/17 20:26 97 40 04/27/17 20:00 35 04/27/17 20:00 100.1 78 20 175/73 (107) 98 04/27/17 20:00 78 04/27/17 19:00 99 Mechanical Ventilator 35 04/27/17 18:00 83 04/27/17 16:42 99 35 04/27/17 16:00 40 04/27/17 16:00 98.9 87 29 187/77 (113) 98 04/27/17 16:00 87 04/27/17 14:00 75 04/27/17 12:00 40 04/27/17 12:00 98.6 79 29 152/67 (95) 98 04/27/17 12:00 79 04/27/17 11:35 98 35 INTUBATION 04/22/17 Interventional Radiology 04/22/17 -- no thrombus noted at time patient was brought to IR. . Assessment and Plan Disease Oriented Problem List: (1) acute left MCA stroke (2) respiratory failure Comment: Now s/p tracheosotmy on 04/27/17. 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 . (2) encephalopathy 0-10 Scale: Unable to quantify Comment: Not awakening post stroke in spite of withholding all sedating medications. . 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 Spiritual: The patient is [employer], is closely affiliated with the "[facility]" olive branch, and the audio operator has already visited the patient here. Legal: The patient lacks capacity for decision-making, and it is unlikely that he will regain that capacity. The patient's Leonela is the proxy decision -maker. Ethical issues impacting care: None . Important Contacts Spouse: Leonela Rojas Home: . Prognosis The patient's prognosis is poor unless there is a somewhat miraculous neurologic recovery. He has suffered a major stroke. Neurology feels patient could survive with ongoing aggressive care, but will likely never regain speech and will likely be dependent and needing near total care. He will be a candidate for hospice services if/when the goals become comfort oriented. . . Code Status: No Code ( has agreed to NO CODE status per the discussion with Dr. Morris on 04/26/17 and after discussion regarding prognosis with Dr. Kate by phone. ) Plan == NO CODE: has agreed to NO CODE status per the discussion with Dr. Morris on 04/26/17 and after discussion regarding prognosis with Dr. Kate by phone on the same day. == DECISION-MAKING: The patient lacks capacity for decision-making, and it is unlikely that he will regain that capacity. The patient's Leonela is the designated health care surrogate. == GOALS: has agreed to DNR status. We will continue aggressive care short of resuscitation for now. Patient's children have arrived from out state and they continue to discuss goals and posible decisions amonst themselves. seems certain that patient would not want life prolonging measures given his prognosis so I anticipate she will want to transition to "comfort measures only" over the next days unless children desire ongoing aggressive care. == SYMPTOMS: * Dyspnea is being managed with mechanical ventilation. No further recommendations at this time. * Pain: there are no obvious signs of pain. I have no additional medication recommendations at this time. * Encephalopathy: this is secondary to the major stroke. Will probably improve slightly over time, but given extent of stroke, anticipate profound permanent change. ==Spiritual support is being provided by the patient's audio operator and deacon from [facility]. == Case discussed this AM with Dr. Sommers. == Palliative care will continue to follow to assist with symptom management and to further clarify goals of medical treatment as the clinical course evolves. . . Time Spent Total Floor Time (mins): 36 (Total time included chart review, patient exam, bedside family conference with and 3 children, case discussion with Dr. Sommers, collaboration with primary nurse. ) Face to Face Time (mins): 15 >50% Counseling/Coord of Care: Yes Attestation To help prompt me to consider important information that might be impacting today's encounter and assessment, information from prior notes written by myself or my colleagues may have been "brought forward" into today's note. My signature on this note, however, is an attestation that I personally performed the exam, history, and/or decision-making noted today, and, unless otherwise indicated, the interactions with patient, family, and staff as well as the review of records all occurred today. I also attest that the listed assessment and stated plan reflect my best clinical judgment today based on the combination of historical information, prior notes, and today's exam/ interactions. When time spent is documented, it refers only to time spent today by the signer, or if indicated, combined time spent today by collaborating physician/nurse practitioner. . Manas Morris MD Apr 28, 2017 11:39
[2017-04-28] MEDS: hydrALAZINE HCL 20 MG/ML VIAL IV PUSH PRN ×2 (12:32→23:44)
[2017-04-28] MEDS: ATORVASTATIN 40 MG TAB PO SCH (20:17)
[2017-04-29] VITALS (21 sets, daily range): BP systolic 146–186; BP diastolic 58–112; PULSE 72–90; RESP 13–24; TEMP 98.4–102.1; O2SAT 92–99
[2017-04-29] MEDS: INSULIN NovoLIN REGULAR SUPPLEMENTAL SCALE SQ SCH ×4 (00:24→17:40)
[2017-04-29] MEDS: CHLORHEXIDINE GLUCONATE 2 % 1 PACK (2 CLOTHS) TOP SCH (01:52)
[2017-04-29 04:49] LABS: HEMATOCRIT 30.3 % (39.0-51.0); MEAN CELL VOLUME 91.9 FL (80.0-100.0); MEAN CORPUSCULAR HEMOGLOBIN 31.3 PG (27.0-34.0); MEAN CORPUSCULAR HGB CONC 34.1 % (32.0-36.0); PLATELET COUNT 259 TH/MM3 (150-450); RED CELL DISTRIBUTION WIDTH 13.1 % (11.6-17.2); REVIEW FLAG FINAL; WHITE BLOOD COUNT 12.4 TH/MM3 (4.0-11.0)
[2017-04-29 05:09] LABS: BICARBONATE 33.6 MEQ/L (21.0-32.0); POTASSIUM 3.9 MEQ/L (3.5-5.1)
[2017-04-29] MEDS: LABETALOL HCL 100 MG/20 ML VIAL IV PUSH PRN ×4 (05:41→11:45)
[2017-04-29] MEDS: SODIUM CHLORIDE 0.9% FLUSH 10 ML FLUSH IV FLUSH SCH ×2 (07:44→21:00)
[2017-04-29] MEDS: BISACODYL 10 MG SUPP RECTAL SCH (07:45)
[2017-04-29] MEDS: LACTULOSE SYRUP 20 GM/30 ML CUP PO SCH ×2 (07:45→21:00)
[2017-04-29] MEDS: POLYETHYLENE GLYCOL 17 GM PKG PO SCH ×2 (07:45→21:00)
[2017-04-29] MEDS: DOXAZOSIN MESYLATE 2 MG TAB PO SCH (07:56)
[2017-04-29] MEDS: FLUoxetine HCL 10 MG CAP PO SCH (07:56)
[2017-04-29] MEDS: HYDROCHLOROTHIAZIDE 25 MG TAB PO SCH (07:56)
[2017-04-29] MEDS: ASPIRIN 81 MG CHEW TAB PO SCH (07:56)
[2017-04-29] MEDS: FAMOTIDINE 20 MG TAB PO SCH ×2 (07:57→20:58)
[2017-04-29] MEDS: DOCUSATE SODIUM 50 MG/SENNA 8.6 MG TAB PO SCH ×2 (07:57→21:00)
[2017-04-29] MEDS: CHLORHEXIDINE 0.12% (ORAL KIT) 15 ML CUP MT SCH ×2 (08:00→21:11)
--- NOTE | 2017-04-29 08:22 | HHI.PR ---
Subjective Remarks much more alert Objective Vital Signs Date Time Temp Pulse Resp B/P (MAP) Pulse Ox O2 Delivery O2 Flow Rate FiO2 04/29/17 07:40 92 35 04/29/17 07:40 35 04/29/17 06:00 74 04/29/17 05:00 183/77 (112) 04/29/17 04:41 98 35 04/29/17 04:00 98.4 82 24 186/112 (136) 99 04/29/17 04:00 82 04/29/17 04:00 35 04/29/17 02:00 87 04/29/17 01:40 98 35 04/29/17 00:25 98 35 04/29/17 00:00 98.7 82 20 156/70 (98) 97 04/29/17 00:00 82 04/29/17 00:00 35 04/28/17 23:07 98 35 04/28/17 22:27 99 35 04/28/17 22:00 74 04/28/17 21:19 167/75 (105) 04/28/17 20:00 35 04/28/17 20:00 78 04/28/17 20:00 98.3 92 24 208/121 (150) 97 04/28/17 19:56 99 35 04/28/17 19:00 99 Mechanical Ventilator 35 04/28/17 18:00 72 04/28/17 16:00 92 04/28/17 16:00 99.6 92 24 202/84 (123) 97 04/28/17 16:00 35 04/28/17 14:53 98 35 04/28/17 14:00 91 04/28/17 12:18 99 35 04/28/17 12:00 98.7 77 25 185/81 (115) 99 04/28/17 12:00 77 04/28/17 12:00 35 04/28/17 10:00 74 04/28/17 08:57 35 04/28/17 08:55 100 35 04/28/17 08:55 35 I/O 04/28/17 04/28/17 04/28/17 04/29/17 04/29/17 04/29/17 07:00 15:00 23:00 07:00 15:00 23:00 Intake Total 536 ml 60 ml 177 ml 1125 ml Output Total 350 ml 600 ml 550 ml Balance 186 ml 60 ml -423 ml 575 ml Intake IV Total 177 ml Tube Feeding 476 ml 1125 ml Other 60 ml 60 ml Output Urine Total 350 ml 600 ml 550 ml # Voids 1 1 # Bowel Movements 2 1 1 Result Diagram: 04/29/1741504/29/17415 Objective Remarks opens eyes very alert not follow commands makes eye contact moves left nl not rue 0/5 and lle 1/5 Assessment and Plan Assessment and Plan imp nasra crawford he has by mri had old r parietal cva and new left mca post and some ant division and some deep cva nurse noted some rue movement last pm after clot disintegrated in left mca he is on a small amt dip and evidently fentanyl i think best thinbg is to get him off all sedatives and see what he can do so we can decide his level of disability to decide px and course of action i will be back wednesday to do this if we can get him off sedatives and maybe off vent wed or wednesday? if earlier call dr hanley insulation blower and he can give his px opinion if off sedatives 04/26/17 moving quite a bit not following commands kyaw some aphasia unfortunately he got haldol and ativan last 2 days so that effects his and my mental status exam/fxt i dced these i dw nursing regardless [facility] living for rest of life but can survive this vs hospice up to what she wants to do she can call me when she comes intoday via nursing 04/28/17 much better as sedatives wore off awake now not follow commands kyaw aphasic or may be certainly i dw yest about [facility] living after this and if that is something he would want maybe we could get him off vent and see how does and decide if hospice or not then no sedatives plz 04/29/17 very awake and alert i cannot get him to folow commands as likleky aphasic i defer to if she wants to pull vent certainly and hospice not unreasonable Keron Kate MD Apr 29, 2017 08:22
--- NOTE | 2017-04-29 08:24 | HHI.CCPN ---
Subjective Remarks/Hospital Course Hospital Course: This is an 82-year-old male. Date of admission 04/22/2017. 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 He presents to [facility] today as a stroke alert. Evaluated by Dr. Kate/neurology. Symptoms included right-sided hemiparesis with a left-sided gaze. Patient was hypertensive and started on nicardipine drip. Given 300 mg aspirin per rectum 1. CT brain revealed chronic ischemic changes including right frontal/parietal and cephalization old right lateral basal ganglia CVA. CT angiogram of the brain revealed occlusion the left MCA at its proximal trifurcation. origin of right LOG HAUL OPERATOR. Patient is brought back intervention radiology for possible stent retrieval Subjective: 04/23: intubated yesterday. still encephalopathic. need to watch carefully, going into swell window. neuro exam stable from yesterday per report. IR yesterday performed with patent MCA flow on angio. no intervention performed. 04/24: no improvements in mental status on sedation vacation. palliative met with family yesterday and they want to be aggressive for a few days and re- evaluate. 04/25: no changes. off sedation x 24h. poor neuro exam. Cr slightly above baseline. uop borderline, but net + every day and clinically appears euvolemic. 04/26: no improvements in mental status off sedation. palliative met with family today and code status changed to DNR/no CPR. family going to meet tonight to talk about withdraw of care. 04/27: no improvements. remains encephalopathic. palliative met again today, family considering withdraw of care. 04/28: more movements today, but not following commands. family does not think patient would want to live fully dependent on medical care. still not awake enough to protect airway, on vent. 04/29: Minimal response and only intermittent. Opens eyes. Does not appear purposeful. Palliative Crae talking with family. Objective Vital Signs Date Time Temp Pulse Resp B/P (MAP) Pulse Ox O2 Delivery O2 Flow Rate FiO2 04/29/17 07:40 92 35 04/29/17 06:00 74 04/29/17 05:00 183/77 (112) 04/29/17 04:00 98.4 24 04/28/17 19:00 Mechanical Ventilator Intake and Output 04/29/17 04/29/17 04/30/17 08:00 16:00 00:00 Intake Total 1125 ml Output Total 550 ml Balance 575 ml Result Diagram: 04/29/17 0416 04/29/17 0416 Imaging Last Impressions Neck CTA 04/22/17 1026 Signed Impressions: Service Date/Time: March 10:32 - CONCLUSION: No evidence of significant carotid stenosis Obi Macedo MD Head CTA 04/22/17 1026 Signed Impressions: Service Date/Time: March 10:25 - CONCLUSION: Left MCA occlusion. Findings were reported to Dr. Flores and Dr. Kate at 1100 hrs. Obi Macedo MD Head CT 04/22/17 0000 Signed Impressions: Service Date/Time: March 10:25 - CONCLUSION: No acute intracranial findings. Extensive chronic ischemic sequela Obi Macedo MD Objective Remarks GENERAL: elderly male, lying in bed, intubated, encephalopathic. SKIN: Warm and dry. HEAD: Atraumatic. Normocephalic. EYES: Pupils equal and round. No scleral icterus. No injection or drainage. ENT: No nasal bleeding or discharge. Mucous membranes pink and moist. NECK: Trachea midline. Orally intubated. CARDIOVASCULAR: Regular rate and rhythm. RESPIRATORY: intubated, full support. PRVC. Clear. GASTROINTESTINAL: Abdomen soft, non-tender, nondistended. no guarding. Bs active. MUSCULOSKELETAL: Extremities without clubbing, cyanosis, or edema. No obvious deformities. Well perfused. NEUROLOGICAL: RASS -3. withdraws to pain. does not follow commands. pupils equal , sluggishly reactive. A/P Assessment and Plan Assessment: 82yM s/p large left MCA CVA. given large distribution of ischemic brain, poor prognosis. unable to be completely intervened upon. continue frequent neuro checks. permissive hypertension. palliative involved. will look towards family goals of care to decide ongoing treatments. for now, continue neuro checks and supportive care. 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 Kate/neurology CT brain revealed old left frontal/parietal encephalomalacia in bilateral basal ganglia CVA CTA brain revealed occlusion left MCA. right LOG HAUL OPERATOR CT neck no acute occlusions Dr. Macedo - IR for stent retrieval no thrombus noted Currently on aspirin 81 mg daily. Goal keep systolic blood pressure less than 220/120 2-D echocardiogram: normal LV function. PT/OT/ST evaluate and treat haldol 5mg iv q4h prn for agitation minimize as many sedating meds as possible. prop or fent drips only as needed for sedation/agitation not controlled with haldol. CV: Hypertensive emergency History of hypertension Dyslipidemia Coronary artery disease - nonobstructive Atrial fibrillation - currently rate controlled Heart catheterization 07/[address] Mejía revealed EF 60%. Nonobstructive coronary artery disease. Home medications include losartan 50 mg twice a day and hydrochlorothiazide 25 mg daily for hypertension Home medication is atorvastatin 40 mg daily for dyslipidemia Continue aspirin by mouth daily Resp: History COPD Acute hypoxic and hypercarbic respiratory failure - persistent. wean fio2 for goal spo2 > 90% daily sbt's no extubation until mental status improves. intubated 04/22 for declining mental status and hypoxia. PT consults. OOB to stretcher chair. GI: Gastroesophageal reflux disease History of colon cancer status post resection 2010 Acute protein calorie malnutrition- severe. Constipation - resolved. DHT. on TFs. On famotidine 20 mg by mouth twice a day for gastroesophageal reflux disease having daily BMs on increased regimen. continue. : History of ED Urinary retention started cardura 04/23. garza removed 04/27. Endo: Sliding-scale insulin if indicated to maintain euglycemia control 130 to 180 Renal: Chronic kidney disease stage II Creatinine currently within normal limits Monitor urine output Accurate I's and O's Heme: History of melanoma/SCC of the forehead? Recent excision 2 weeks ago Hypercoagulable state on chronic Rivaroxaban - unclear if acquired or inherited PT/PTT elevation Monitor CBC daily. Resume anticoagulation when okay with neurology ID: History of shingles Monitor for infection MSK: PT/OT evaluate and treat FEN: Replace electrolytes as clinically indicated Access - Utilize peripheral IVs Prophylaxis - GI - famotidine - DVT - SCD Overall impression: Chance for meaningful recovery is quite slim and highly unlikely. Ky Roe MD Apr 29, 2017 08:24
[2017-04-29] MEDS: RIVAROXABAN 20 MG TAB PO SCH (09:00)
--- NOTE | 2017-04-29 11:46 | HHI.HCPN ---
Reason for visit a. To assist with evaluation and management of symptoms including: Dyspnea , dysphagia; encephalopathy b. To assist medical decision maker(s) with: better understanding of current medical conditions; weighing benefits/burdens of medical treatment options; making medical treatment decisions. . . Subjective/Interval History Patient remains intubated, mechanically ventilated in the SICU. He is off all sedation. Neurology note indicates he was quite wakeful , but not able to follow commands earlier this AM. He does not awaken for me. , at bedside , also indicates that patient has not awakened for her today. No significant change overnight. . . . Family/friend interactions Discussed case with patient at bedside. has met with patient's children and all agree that the patient would not want his life prolonged like this. Children would be supportive of a decision to withdraw life support. There are still a few family members coming to "say goodbye." anticipates that everyone will have visited by Wednesday. She anticipates she will be making a decision to withdraw from vent and discharge to a hospice care center this weekend. . Advance Directives Living Will: Copy in medical record Health Care Surrogate: Copy in medical record Durable Power of Transmission Technician: Never completed Advance Directive Specifics Date completed: Combined living will and health care surrogate designations were completed on . Health Care Surrogate(s): Patient has designated his -- Leonela Rojas -- as his health care surrogate. . Documented care wishes: Living will indicates he would not want life prolonged should he be found to have a terminal or end-stage condition. He would NOT want artificial nutrition/ hydration. . Significant change in goals: Planning on withdrawing life support and transitioning to hospice care this weekend after loved ones have had a chance to visit. . Objective Vital Signs Date Time Temp Pulse Resp B/P (MAP) Pulse Ox O2 Delivery O2 Flow Rate FiO2 04/29/17 11:16 92 40 04/29/17 08:00 100.6 76 22 168/74 (105) 99 04/29/17 08:00 80 04/29/17 08:00 35 04/29/17 07:40 92 35 04/29/17 07:40 35 04/29/17 07:00 98 Mechanical Ventilator 35 04/29/17 06:00 74 04/29/17 05:00 183/77 (112) 04/29/17 04:41 98 35 04/29/17 04:00 98.4 82 24 186/112 (136) 99 04/29/17 04:00 82 04/29/17 04:00 35 04/29/17 02:00 87 04/29/17 01:40 98 35 04/29/17 00:25 98 35 04/29/17 00:00 98.7 82 20 156/70 (98) 97 04/29/17 00:00 82 04/29/17 00:00 35 04/28/17 23:07 98 35 04/28/17 22:27 99 35 04/28/17 22:00 74 04/28/17 21:19 167/75 (105) 04/28/17 20:00 35 04/28/17 20:00 78 04/28/17 20:00 98.3 92 24 208/121 (150) 97 04/28/17 19:56 99 35 04/28/17 19:00 99 Mechanical Ventilator 35 04/28/17 18:00 72 04/28/17 16:00 92 04/28/17 16:00 99.6 92 24 202/84 (123) 97 04/28/17 16:00 35 04/28/17 14:53 98 35 04/28/17 14:00 91 04/28/17 12:18 99 35 04/28/17 12:00 98.7 77 25 185/81 (115) 99 04/28/17 12:00 77 04/28/17 12:00 35 Intake & Output 04/29/17 04/29/17 07:00 19:00 Intake Total 1125 ml Output Total 550 ml Balance 575 ml Tube Feeding 1125 ml Output Urine Total 550 ml # Voids 1 # Bowel Movements 1 . Physical Exam CONSTITUTIONAL/GENERAL: This is an adequately nourished patient, in no apparent distress, mechanical ventilation. Not opening eyes to voice or routine exam. No apparent distress. TUBES/LINES/DRAINS: SCDs, peripheral IV access, endotracheal tube, OG tube, condom catheter SKIN: No jaundice, rashes. Healing surgical site on his upper forehead where the squamous cell CA was excised prior to hospitalization. Ecchymoses on upper extremities. No wounds seen anteriorly. Skin temperature appropriate. Not diaphoretic. HEAD: Atraumaticexcept for above mentioned skin surgery scar. Normocephalic. EYES: Pupils equal and reactive. No scleral icterus. No injection or drainage. Fundi not examined. ENT: Nose without bleeding or purulent drainage. Oropharynx difficult to visualize due to intubations. NECK: Trachea midline. CARDIOVASCULAR: Regular rate/rhythm without murmurs, gallops, or rubs. No JVD. RESPIRATORY/CHEST: Symmetric, unlabored respirations. Clear to auscultation. Breath sounds equal bilaterally. No wheezes, rales, or rhonchi. GASTROINTESTINAL: Abdomen soft, non-tender, nondistended. No hepato-splenomegaly , or palpable masses. No guarding. Bowel sounds present. GENITOURINARY: Without palpable bladder distension. MUSCULOSKELETAL: Extremities without clubbing, cyanosis, or edema. No mottling. LYMPHATICS: Not examined. NEUROLOGICAL: Does not awaken to voice or exam. Unable to follow commands.. Rare spontaneous movements of extremities. Withdraws to noxious stimuli all 4 extremities but more movement on left. PSYCHIATRIC: Unable to evaluate due to clinical condition . Diagnostic Tests Laboratory Laboratory Tests Test 04/27/17 04:02 04/28/17 05:52 04/29/17 04:16 White Blood Count 10.0 TH/MM3 (4.0-11.0) 11.2 TH/MM3 (4.0-11.0) 12.4 TH/MM3 (4.0-11.0) Red Blood Count 3.33 MIL/MM3 (4.50-5.90) 3.44 MIL/MM3 (4.50-5.90) 3.30 MIL/MM3 (4.50-5.90) Hemoglobin 10.3 GM/DL (13.0-17.0) 10.5 GM/DL (13.0-17.0) 10.3 GM/DL (13.0-17.0) Hematocrit 30.6 % (39.0-51.0) 31.7 % (39.0-51.0) 30.3 % (39.0-51.0) Mean Corpuscular Volume 91.9 FL (80.0-100.0) 92.1 FL (80.0-100.0) 91.9 FL (80.0-100.0) Mean Corpuscular Hemoglobin 31.0 PG (27.0-34.0) 30.4 PG (27.0-34.0) 31.3 PG (27.0-34.0) Mean Corpuscular Hemoglobin Concent 33.7 % (32.0-36.0) 33.0 % (32.0-36.0) 34.1 % (32.0-36.0) Red Cell Distribution Width 13.2 % (11.6-17.2) 13.6 % (11.6-17.2) 13.1 % (11.6-17.2) Platelet Count 195 TH/MM3 (150-450) 238 TH/MM3 (150-450) 259 TH/MM3 (150-450) Mean Platelet Volume 8.5 FL (7.0-11.0) 9.2 FL (7.0-11.0) 9.2 FL (7.0-11.0) Blood Urea Nitrogen 36 MG/DL (7-18) 42 MG/DL (7-18) 42 MG/DL (7-18) Creatinine 0.79 MG/DL (0.60-1.30) 0.89 MG/DL (0.60-1.30) 0.88 MG/DL (0.60-1.30) Random Glucose 148 MG/DL (74-106) 115 MG/DL (74-106) 126 MG/DL (74-106) Calcium Level 8.5 MG/DL (8.5-10.1) 8.6 MG/DL (8.5-10.1) 8.5 MG/DL (8.5-10.1) Sodium Level 140 MEQ/L (136-145) 142 MEQ/L (136-145) 143 MEQ/L (136-145) Potassium Level 3.7 MEQ/L (3.5-5.1) 3.7 MEQ/L (3.5-5.1) 3.9 MEQ/L (3.5-5.1) Chloride Level 103 MEQ/L (98-107) 103 MEQ/L (98-107) 104 MEQ/L (98-107) Carbon Dioxide Level 31.0 MEQ/L (21.0-32.0) 31.8 MEQ/L (21.0-32.0) 33.6 MEQ/L (21.0-32.0) Anion Gap 6 MEQ/L (5-15) 7 MEQ/L (5-15) 5 MEQ/L (5-15) Estimat Glomerular Filtration Rate 94 ML/MIN (>89) 82 ML/MIN (>89) 83 ML/MIN (>89) . Result Diagram: 04/29/1741504/29/17415 Imaging Last Impressions Neck CTA 04/22/17 1026 Signed Impressions: Service Date/Time: March 10:32 - CONCLUSION: No evidence of significant carotid stenosis Obi Macedo MD Head CTA 04/22/17 1026 Signed Impressions: Service Date/Time: March 10:25 - CONCLUSION: Left MCA occlusion. Findings were reported to Dr. Flores and Dr. Kate at 1100 hrs. Obi Macedo MD Head CT 04/22/17 0000 Signed Impressions: Service Date/Time: March 10:25 - CONCLUSION: No acute intracranial findings. Extensive chronic ischemic sequela Obi Macedo MD Chest X-Ray 04/22/17 0000 Signed Impressions: Service Date/Time: March 13:53 - CONCLUSION: 1. Status post intubation. 2. No acute cardiopulmonary disease. Joni Akbar MD Cerebral Arteriogram 04/22/17 0000 Signed Impressions: Service Date/Time: March 11:10 - CONCLUSION: Interval spontaneous recanalization of middle cerebral artery occlusion. Catheter directed stroke therapy was not required. Obi Macedo MD ADDENDUM: The cerebral circulation was TICI-2b Keron Mathis MD Brain MRI 04/22/17 0000 Signed Impressions: Service Date/Time: March 21:14 - CONCLUSION: 1. There is acute infarction involving the posterior left frontal, left temporal, and left parietal lobes. The area of acute infarction involves the left basal ganglia and the left caudate head. 2. Increased signal throughout the cerebral and pontine white matter likely secondary to small vessel ischemic change. 3. Right parietal encephalomalacia. Obi Live MD . 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 . (2) encephalopathy 0-10 Scale: Unable to quantify Comment: Not awakening post stroke in spite of withholding all sedating medications. . 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 Spiritual: The patient is Sikhism, is closely affiliated with the "[facility]" [place], and the telegraphic instrument supervisor has already visited the patient here. Legal: The patient lacks capacity for decision-making, and it is unlikely that he will regain that capacity. The patient's Leonela is the proxy decision -maker. Ethical issues impacting care: None . Important Contacts Spouse: Leonela Rojas Home: . Prognosis The patient's prognosis is poor unless there is a somewhat miraculous neurologic recovery. He has suffered a major stroke. Neurology feels patient could survive with ongoing aggressive care, but will likely never regain speech and will likely be dependent and needing near total care. He will be a candidate for hospice services if/when the goals become comfort oriented. . . Code Status: Alternative Code ( has agreed to ALT CODE status per the discussion with Dr. Morris on 04/26/17 and after discussion regarding prognosis with Dr. Kate by phone on the same day. Intubation only. No chest compressions or shock. ) Plan == Code Status: has agreed to ALT CODE status per the discussion with Dr. Morris on 04/26/17 and after discussion regarding prognosis with Dr. Kate by phone on the same day. Intubation only. No chest compressions or shock. == DECISION-MAKING: The patient lacks capacity for decision-making, and it is unlikely that he will regain that capacity. The patient's Leonela is the designated health care surrogate. == GOALS: has agreed to No chest compressions / no shock. We will continue with mechanical ventilation and aggressive care short of shock and chest compressions for now. has met with patient's children and all agree that the patient would not want his life prolonged like this. Children would be supportive of a decision to withdraw life support. There are still a few family members coming to "say goodbye." anticipates that everyone will have visited by Wednesday. She anticipates she will be making a decision to withdraw from vent and discharge to a hospice care center this weekend. == SYMPTOMS: * Dyspnea is being managed with mechanical ventilation. No further recommendations at this time. * Pain: there are no obvious signs of pain. I have no additional medication recommendations at this time. * Encephalopathy: this is secondary to the major stroke. Will probably improve slightly over time, but given extent of stroke, anticipate profound permanent change. ==Spiritual support is being provided by the patient's telegraphic instrument supervisor and deacon from [facility]. == Palliative care will continue to follow to assist with symptom management and to further clarify goals of medical treatment as the clinical course evolves. . . Attestation To help prompt me to consider important information that might be impacting today's encounter and assessment, information from prior notes written by myself or my colleagues may have been "brought forward" into today's note. My signature on this note, however, is an attestation that I personally performed the exam, history, and/or decision-making noted today, and, unless otherwise indicated, the interactions with patient, family, and staff as well as the review of records all occurred today. I also attest that the listed assessment and stated plan reflect my best clinical judgment today based on the combination of historical information, prior notes, and today's exam/ interactions. When time spent is documented, it refers only to time spent today by the signer, or if indicated, combined time spent today by collaborating physician/nurse practitioner. . Manas Morris MD Apr 29, 2017 11:46
[2017-04-29] MEDS: hydrALAZINE HCL 20 MG/ML VIAL IV PUSH PRN (13:16)
[2017-04-29] MEDS: ACETAMINOPHEN 325 MG TAB PO PRN (17:40)
[2017-04-29] MEDS: ATORVASTATIN 40 MG TAB PO SCH (20:59)
[2017-04-30] VITALS (19 sets, daily range): BP systolic 145–172; BP diastolic 64–76; PULSE 78–108; RESP 17–22; TEMP 99.3–101.3; O2SAT 93–99
[2017-04-30] MEDS: HYDROmorphone HCL PF 1 MG/ML VIAL IV PUSH PRN ×3 (01:17→23:09)
[2017-04-30] MEDS: hydrALAZINE HCL 20 MG/ML VIAL IV PUSH PRN (01:17)
[2017-04-30] MEDS: CHLORHEXIDINE GLUCONATE 2 % 1 PACK (2 CLOTHS) TOP SCH (04:00)
[2017-04-30] MEDS: INSULIN NovoLIN REGULAR SUPPLEMENTAL SCALE SQ SCH ×5 (06:00→23:33)
[2017-04-30 06:22] LABS: HEMATOCRIT 31.8 % (39.0-51.0); MEAN CELL VOLUME 92.2 FL (80.0-100.0); MEAN CORPUSCULAR HEMOGLOBIN 31.4 PG (27.0-34.0); PLATELET COUNT 284 TH/MM3 (150-450); RED BLOOD COUNT 3.44 MIL/MM3 (4.50-5.90); RED CELL DISTRIBUTION WIDTH 13.2 % (11.6-17.2); REVIEW FLAG FINAL; WHITE BLOOD COUNT 16.2 TH/MM3 (4.0-11.0)
[2017-04-30 06:53] LABS: BICARBONATE 31.3 MEQ/L (21.0-32.0); POTASSIUM 4.2 MEQ/L (3.5-5.1)
[2017-04-30] MEDS: LACTULOSE SYRUP 20 GM/30 ML CUP PO SCH ×2 (07:47→21:00)
[2017-04-30] MEDS: POLYETHYLENE GLYCOL 17 GM PKG PO SCH ×2 (07:47→21:00)
[2017-04-30] MEDS: DOCUSATE SODIUM 50 MG/SENNA 8.6 MG TAB PO SCH ×2 (07:47→21:00)
[2017-04-30] MEDS: BISACODYL 10 MG SUPP RECTAL SCH (07:48)
[2017-04-30] MEDS: CHLORHEXIDINE 0.12% (ORAL KIT) 15 ML CUP MT SCH ×2 (08:00→23:09)
[2017-04-30] MEDS: DOXAZOSIN MESYLATE 2 MG TAB PO SCH (08:21)
[2017-04-30] MEDS: FLUoxetine HCL 10 MG CAP PO SCH (08:21)
[2017-04-30] MEDS: ASPIRIN 81 MG CHEW TAB PO SCH (08:22)
[2017-04-30] MEDS: FAMOTIDINE 20 MG TAB PO SCH ×2 (08:22→23:09)
[2017-04-30] MEDS: HYDROCHLOROTHIAZIDE 25 MG TAB PO SCH (08:22)
[2017-04-30] MEDS: RIVAROXABAN 20 MG TAB PO SCH (08:22)
[2017-04-30] MEDS: SODIUM CHLORIDE 0.9% FLUSH 10 ML FLUSH IV FLUSH SCH ×2 (08:54→21:00)
--- NOTE | 2017-04-30 12:08 | HHI.CCPN ---
Subjective Remarks/Hospital Course Hospital Course: This is an 82-year-old male. Date of admission 04/22/2017. 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 He presents to [facility] today as a stroke alert. Evaluated by Dr. Kate/neurology. Symptoms included right-sided hemiparesis with a left-sided gaze. Patient was hypertensive and started on nicardipine drip. Given 300 mg aspirin per rectum 1. CT brain revealed chronic ischemic changes including right frontal/parietal and cephalization old right lateral basal ganglia CVA. CT angiogram of the brain revealed occlusion the left MCA at its proximal trifurcation. 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 Patient is brought back intervention radiology for possible stent retrieval Subjective: 04/23: intubated yesterday. still encephalopathic. need to watch carefully, going into swell window. neuro exam stable from yesterday per report. IR yesterday performed with patent MCA flow on angio. no intervention performed. 04/24: no improvements in mental status on sedation vacation. palliative met with family yesterday and they want to be aggressive for a few days and re- evaluate. 04/25: no changes. off sedation x 24h. poor neuro exam. Cr slightly above baseline. uop borderline, but net + every day and clinically appears euvolemic. 04/26: no improvements in mental status off sedation. palliative met with family today and code status changed to DNR/no CPR. family going to meet tonight to talk about withdraw of care. 04/27: no improvements. remains encephalopathic. palliative met again today, family considering withdraw of care. 04/28: more movements today, but not following commands. family does not think patient would want to live fully dependent on medical care. still not awake enough to protect airway, on vent. 04/29: Minimal response and only intermittent. Opens eyes. Does not appear purposeful. Palliative Crae talking with family. 04/30: No change in neurological status, family considering to withdrawal care this weekend. Objective Vital Signs Date Time Temp Pulse Resp B/P (MAP) Pulse Ox O2 Delivery O2 Flow Rate FiO2 04/30/17 11:39 96 40 04/30/17 10:00 91 04/30/17 08:00 101.3 21 153/67 (95) 04/30/17 07:00 Mechanical Ventilator Intake and Output 04/30/17 04/30/17 05/01/17 08:00 16:00 00:00 Intake Total 740 ml Output Total 700 ml Balance 40 ml Result Diagram: 04/30/17 0458 04/30/17 0458 Imaging Last Impressions Neck CTA 04/22/17 1026 Signed Impressions: Service Date/Time: March 10:32 - CONCLUSION: No evidence of significant carotid stenosis Obi Macedo MD Head CTA 04/22/17 1026 Signed Impressions: Service Date/Time: March 10:25 - CONCLUSION: Left MCA occlusion. Findings were reported to Dr. Flores and Dr. Kate at 1100 hrs. Obi Macedo MD Head CT 04/22/17 0000 Signed Impressions: Service Date/Time: March 10:25 - CONCLUSION: No acute intracranial findings. Extensive chronic ischemic sequela Obi Macedo MD Objective Remarks GENERAL: elderly male, lying in bed, intubated, encephalopathic. SKIN: Warm and dry. HEAD: Atraumatic. Normocephalic. EYES: Pupils equal and round. No scleral icterus. No injection or drainage. ENT: No nasal bleeding or discharge. Mucous membranes pink and moist. NECK: Trachea midline. Orally intubated. CARDIOVASCULAR: Regular rate and rhythm. RESPIRATORY: intubated, full support. PRVC. Clear. GASTROINTESTINAL: Abdomen soft, non-tender, nondistended. no guarding. Bs active. MUSCULOSKELETAL: Extremities without clubbing, cyanosis, or edema. No obvious deformities. Well perfused. NEUROLOGICAL: RASS -3. withdraws to pain. does not follow commands. pupils equal , sluggishly reactive. A/P Assessment and Plan Assessment: 82yM s/p large left MCA CVA. given large distribution of ischemic brain, poor prognosis. unable to be completely intervened upon. continue frequent neuro checks. permissive hypertension. palliative involved. will look towards family goals of care to decide ongoing treatments. for now, continue neuro checks and supportive care. 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 Kate/neurology CT brain revealed old left frontal/parietal encephalomalacia in bilateral basal ganglia CVA CTA brain revealed occlusion left MCA. 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 Macedo - IR for stent retrieval no thrombus noted Currently on aspirin 81 mg daily. Goal keep systolic blood pressure less than 220/120 2-D echocardiogram: normal LV function. PT/OT/ST evaluate and treat haldol 5mg iv q4h prn for agitation minimize as many sedating meds as possible. prop or fent drips only as needed for sedation/agitation not controlled with haldol. CV: Hypertensive emergency History of hypertension Dyslipidemia Coronary artery disease - nonobstructive Atrial fibrillation - currently rate controlled Heart catheterization 07/[address] Mejía revealed EF 60%. Nonobstructive coronary artery disease. Home medications include losartan 50 mg twice a day and hydrochlorothiazide 25 mg daily for hypertension Home medication is atorvastatin 40 mg daily for dyslipidemia Continue aspirin by mouth daily Resp: History COPD Acute hypoxic and hypercarbic respiratory failure - persistent. wean fio2 for goal spo2 > 90% daily sbt's neurological condition allows no extubation until mental status improves. intubated 04/22 for declining mental status and hypoxia. PT consults. OOB to stretcher chair until comfort care measures only in place GI: Gastroesophageal reflux disease History of colon cancer status post resection 2010 Acute protein calorie malnutrition- severe. Constipation - resolved. DHT. on TFs. On famotidine 20 mg by mouth twice a day for gastroesophageal reflux disease having daily BMs on increased regimen. continue. : History of ED Urinary retention started cardura 04/23. garza removed 04/27. Endo: Sliding-scale insulin if indicated to maintain euglycemia control 130 to 180 Renal: Chronic kidney disease stage II Creatinine currently within normal limits Monitor urine output Accurate I's and O's Heme: History of melanoma/SCC of the forehead? Recent excision 2 weeks ago Hypercoagulable state on chronic Rivaroxaban - unclear if acquired or inherited PT/PTT elevation Monitor CBC daily. Resume anticoagulation when okay with neurology ID: History of shingles Monitor for infection MSK: PT/OT evaluate and treat FEN: Replace electrolytes as clinically indicated Access - Utilize peripheral IVs Prophylaxis - GI - famotidine - DVT - SCD Overall impression: Chance for meaningful recovery is quite slim and highly unlikely. Level II Allen Richardson MD Apr 30, 2017 12:08 pm
--- NOTE | 2017-04-30 19:32 | HHI.HCPN ---
Reason for visit a. To assist with evaluation and management of symptoms including: Dyspnea , dysphagia; encephalopathy b. To assist medical decision maker(s) with: better understanding of current medical conditions; weighing benefits/burdens of medical treatment options; making medical treatment decisions. . . Subjective/Interval History Patient remains intubated, mechanically ventilated in the SICU. He is off all sedation. No significant change overnight. He is less wakeful today -- reports he has not opened his eyes for her and there are fewer spontaneous movements. Family members have visited today. . . . Family/friend interactions Met with this evening. Family members have visited. Final visits expected tomorrow. Once again discussed goals and plans at this point. would like to meet with hospice on 05/01/17 and make plans so that patient can be withdrawn from life support and transferred to a hospice care center on 05/02/17. She is appropriately tearful but is feeling comfortable with her decision. . Advance Directives Living Will: Copy in medical record Health Care Surrogate: Copy in medical record Durable Power of Yarn Mercerizer Operator Helper: Never completed Advance Directive Specifics Date completed: Combined living will and health care surrogate designations were completed on . Health Care Surrogate(s): Patient has designated his -- Leonela Rojas -- as his health care surrogate. . Documented care wishes: Living will indicates he would not want life prolonged should he be found to have a terminal or end-stage condition. He would NOT want artificial nutrition/ hydration. . Significant change in goals: is planning on withdrawal of life support and transfer to a hospice care center on Wednesday05/02/17. . Objective Vital Signs Date Time Temp Pulse Resp B/P (MAP) Pulse Ox O2 Delivery O2 Flow Rate FiO2 04/30/17 16:49 98 40 04/30/17 16:00 35 04/30/17 12:00 35 04/30/17 11:39 96 40 04/30/17 10:00 91 04/30/17 08:00 35 04/30/17 08:00 101.3 92 21 153/67 (95) 97 04/30/17 08:00 88 04/30/17 07:40 97 40 04/30/17 07:00 97 Mechanical Ventilator 35 04/30/17 06:00 85 04/30/17 04:06 93 40 04/30/17 04:00 78 12/8/17 04:00 35 04/30/17 04:00 99.3 83 22 153/67 (95) 96 04/30/17 02:00 85 04/30/17 01:08 96 40 04/30/17 00:00 35 04/30/17 00:00 99.3 83 20 153/67 (95) 96 04/30/17 00:00 80 04/29/17 22:05 99 40 04/29/17 22:00 75 04/29/17 20:00 35 04/29/17 20:00 90 04/29/17 20:00 98.9 90 19 146/58 (87) 99 . Physical Exam CONSTITUTIONAL/GENERAL: This is an adequately nourished patient, in no apparent distress, mechanical ventilation. Not opening eyes to voice or routine exam. No apparent distress. TUBES/LINES/DRAINS: SCDs, peripheral IV access, endotracheal tube, OG tube, condom catheter SKIN: No jaundice, rashes. Healing surgical site on his upper forehead where the squamous cell CA was excised prior to hospitalization. Ecchymoses on upper extremities. No wounds seen anteriorly. Skin temperature appropriate. Not diaphoretic. HEAD: Atraumatic except for above mentioned skin surgery scar. Normocephalic. EYES: Pupils equal and reactive. No scleral icterus. No injection or drainage. Fundi not examined. ENT: Nose without bleeding or purulent drainage. Oropharynx difficult to visualize due to intubations. NECK: Trachea midline. CARDIOVASCULAR: Regular rate/rhythm without murmurs, gallops, or rubs. No JVD. RESPIRATORY/CHEST: Symmetric, unlabored respirations. Clear to auscultation. Breath sounds equal bilaterally. No wheezes, rales, or rhonchi. GASTROINTESTINAL: Abdomen soft, non-tender, nondistended. No hepato-splenomegaly , or palpable masses. No guarding. Bowel sounds present. GENITOURINARY: Without palpable bladder distension. MUSCULOSKELETAL: Extremities without clubbing, cyanosis, or edema. No mottling. LYMPHATICS: Not examined. NEUROLOGICAL: Does not awaken to voice or exam. Unable to follow commands.. Rare spontaneous movements of extremities. PSYCHIATRIC: Unable to evaluate due to clinical condition . Diagnostic Tests Laboratory Laboratory Tests Test 04/28/17 05:52 04/29/17 04:16 04/30/17 04:58 White Blood Count 11.2 TH/MM3 (4.0-11.0) 12.4 TH/MM3 (4.0-11.0) 16.2 TH/MM3 (4.0-11.0) Red Blood Count 3.44 MIL/MM3 (4.50-5.90) 3.30 MIL/MM3 (4.50-5.90) 3.44 MIL/MM3 (4.50-5.90) Hemoglobin 10.5 GM/DL (13.0-17.0) 10.3 GM/DL (13.0-17.0) 10.8 GM/DL (13.0-17.0) Hematocrit 31.7 % (39.0-51.0) 30.3 % (39.0-51.0) 31.8 % (39.0-51.0) Mean Corpuscular Volume 92.1 FL (80.0-100.0) 91.9 FL (80.0-100.0) 92.2 FL (80.0-100.0) Mean Corpuscular Hemoglobin 30.4 PG (27.0-34.0) 31.3 PG (27.0-34.0) 31.4 PG (27.0-34.0) Mean Corpuscular Hemoglobin Concent 33.0 % (32.0-36.0) 34.1 % (32.0-36.0) 34.0 % (32.0-36.0) Red Cell Distribution Width 13.6 % (11.6-17.2) 13.1 % (11.6-17.2) 13.2 % (11.6-17.2) Platelet Count 238 TH/MM3 (150-450) 259 TH/MM3 (150-450) 284 TH/MM3 (150-450) Mean Platelet Volume 9.2 FL (7.0-11.0) 9.2 FL (7.0-11.0) 9.5 FL (7.0-11.0) Blood Urea Nitrogen 42 MG/DL (7-18) 42 MG/DL (7-18) 44 MG/DL (7-18) Creatinine 0.89 MG/DL (0.60-1.30) 0.88 MG/DL (0.60-1.30) 1.03 MG/DL (0.60-1.30) Random Glucose 115 MG/DL (74-106) 126 MG/DL (74-106) 124 MG/DL (74-106) Calcium Level 8.6 MG/DL (8.5-10.1) 8.5 MG/DL (8.5-10.1) 8.7 MG/DL (8.5-10.1) Sodium Level 142 MEQ/L (136-145) 143 MEQ/L (136-145) 141 MEQ/L (136-145) Potassium Level 3.7 MEQ/L (3.5-5.1) 3.9 MEQ/L (3.5-5.1) 4.2 MEQ/L (3.5-5.1) Chloride Level 103 MEQ/L (98-107) 104 MEQ/L (98-107) 103 MEQ/L (98-107) Carbon Dioxide Level 31.8 MEQ/L (21.0-32.0) 33.6 MEQ/L (21.0-32.0) 31.3 MEQ/L (21.0-32.0) Anion Gap 7 MEQ/L (5-15) 5 MEQ/L (5-15) 7 MEQ/L (5-15) Estimat Glomerular Filtration Rate 82 ML/MIN (>89) 83 ML/MIN (>89) 69 ML/MIN (>89) . Result Diagram: 04/30/178 04/30/178 Imaging Last Impressions Neck CTA 04/22/17 1026 Signed Impressions: Service Date/Time: March 10:32 - CONCLUSION: No evidence of significant carotid stenosis Obi Macedo MD Head CTA 04/22/17 1026 Signed Impressions: Service Date/Time: March 10:25 - CONCLUSION: Left MCA occlusion. Findings were reported to Dr. Flores and Dr. Kate at 1100 hrs. Obi Macedo MD Head CT 04/22/17 0000 Signed Impressions: Service Date/Time: March 10:25 - CONCLUSION: No acute intracranial findings. Extensive chronic ischemic sequela Obi Macedo MD Chest X-Ray 04/22/17 0000 Signed Impressions: Service Date/Time: March 13:53 - CONCLUSION: 1. Status post intubation. 2. No acute cardiopulmonary disease. Joni Akbar MD Cerebral Arteriogram 04/22/17 0000 Signed Impressions: Service Date/Time: March 11:10 - CONCLUSION: Interval spontaneous recanalization of middle cerebral artery occlusion. Catheter directed stroke therapy was not required. Obi Macedo MD ADDENDUM: The cerebral circulation was TICI-2b Keron Mathis MD Brain MRI 04/22/17 0000 Signed Impressions: Service Date/Time: March 21:14 - CONCLUSION: 1. There is acute infarction involving the posterior left frontal, left temporal, and left parietal lobes. The area of acute infarction involves the left basal ganglia and the left caudate head. 2. Increased signal throughout the cerebral and pontine white matter likely secondary to small vessel ischemic change. 3. Right parietal encephalomalacia. Obi Live MD . 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 . (2) encephalopathy 0-10 Scale: Unable to quantify Comment: Not awakening post stroke in spite of withholding all sedating medications. . 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 Spiritual: The patient is Baptism, is closely affiliated with the "[facility]" [place], and the burglar alarm installer has already visited the patient here. Legal: The patient lacks capacity for decision-making, and it is unlikely that he will regain that capacity. The patient's Leonela is the proxy decision -maker. Ethical issues impacting care: None . Important Contacts Spouse: Leonela Rojas Home: . Prognosis The patient's prognosis is poor unless there is a somewhat miraculous neurologic recovery. He has suffered a major stroke. Neurology feels patient could survive with ongoing aggressive care, but will likely never regain speech and will likely be dependent and needing near total care. He will be a candidate for hospice services if/when the goals become comfort oriented. . . Code Status: Alternative Code ( has agreed to ALT CODE status per the discussion with Dr. Morris on 04/26/17 and after discussion regarding prognosis with Dr. Kate by phone on the same day. Intubation only. No chest compressions or shock. ) Plan == Code Status: has agreed to ALT CODE status per the discussion with Dr. Morris on 04/26/17 and after discussion regarding prognosis with Dr. Kate by phone on the same day. Intubation only. No chest compressions or shock. == DECISION-MAKING: The patient lacks capacity for decision-making, and it is unlikely that he will regain that capacity. The patient's Leonela is the designated health care surrogate. == GOALS: has agreed to No chest compressions / no shock. We will continue with mechanical ventilation and aggressive care short of shock and chest compressions for now. Last family members will be visiting on 05/01/17. wants to meet with hospice on 05/01 with plans to withdraw life support on 05/02 and have patient transferred to a hospice care center. == SYMPTOMS: * Dyspnea is being managed with mechanical ventilation. No further recommendations at this time. * Pain: there are no obvious signs of pain. I have no additional medication recommendations at this time. * Encephalopathy: this is secondary to the major stroke. Will probably improve slightly over time, but given extent of stroke, anticipate profound permanent change. == Hospice consult placed per above request of . Current plan to withdraw life support on 05/02/17. == Palliative care will continue to follow to assist with symptom management and to further clarify goals of medical treatment as the clinical course evolves. . . Attestation To help prompt me to consider important information that might be impacting today's encounter and assessment, information from prior notes written by myself or my colleagues may have been "brought forward" into today's note. My signature on this note, however, is an attestation that I personally performed the exam, history, and/or decision-making noted today, and, unless otherwise indicated, the interactions with patient, family, and staff as well as the review of records all occurred today. I also attest that the listed assessment and stated plan reflect my best clinical judgment today based on the combination of historical information, prior notes, and today's exam/ interactions. When time spent is documented, it refers only to time spent today by the signer, or if indicated, combined time spent today by collaborating physician/nurse practitioner. . Manas Morris MD Apr 30, 2017 19:32
[2017-04-30] MEDS: LABETALOL HCL 100 MG/20 ML VIAL IV PUSH PRN (22:53)
[2017-04-30] MEDS: ATORVASTATIN 40 MG TAB PO SCH (23:10)
[2017-05-01] VITALS (18 sets, daily range): BP systolic 126–168; BP diastolic 58–75; PULSE 83–104; RESP 16–33; TEMP 98.2–102.9; O2SAT 95–99
[2017-05-01] MEDS: hydrALAZINE HCL 20 MG/ML VIAL IV PUSH PRN ×3 (00:21→17:18)
[2017-05-01] MEDS: LABETALOL HCL 100 MG/20 ML VIAL IV PUSH PRN ×3 (01:54→18:52)
[2017-05-01] MEDS: HYDROmorphone HCL PF 1 MG/ML VIAL IV PUSH PRN (01:55)
[2017-05-01] MEDS: CHLORHEXIDINE GLUCONATE 2 % 1 PACK (2 CLOTHS) TOP SCH (04:00)
[2017-05-01 04:48] LABS: BLOOD GAS BASE EXCESS 8.2 mmol/L (-2-2); BLOOD GAS CARBOXYHEMOGLOBIN 1.1 % (0-4); BLOOD GAS HCO3 32 mmol/L (22-26); BLOOD GAS METHEMOGLOBIN 0.9 % (0-2); BLOOD GAS O2 HGB SATURATION 95 % (90-100); BLOOD GAS OXYGEN CONTENT 16.2 Vol % (12.0-20.0); BLOOD GAS PCO2 45 mmHg (38-42); BLOOD GAS PO2 83 mmHg (61-120); BLOOD GAS TOTAL HGB 12.1 G/DL (12.0-16.0); CRITICAL VALUE NO; OXYGEN DEVICE VENTILATOR; TEMP CORR TO 98.6
[2017-05-01 04:49] LABS: DRAW SITE LT RADIAL; FIO2 35 %; NUMBER OF ARTERIAL PUNCTURES 1; STAT NO; ULNAR PULSE PRESENT; VENT SETTINGS PRVC16/550/1.0/+5
[2017-05-01 05:06] LABS: AUTOMATED NEUTROPHIL # 16.5 TH/MM3 (1.8-7.7); BASOPHIL # 0.2 TH/MM3 (0-0.2); BASOPHIL % 0.8 % (0.0-2.0); EOSINOPHIL # 0.3 TH/MM3 (0-0.4); EOSINOPHIL % 1.5 % (0.0-4.0); HEMATOCRIT 32.1 % (39.0-51.0); LYMPH % 3.9 % (9.0-44.0); LYMPHOCYTE # 0.8 TH/MM3 (1.0-4.8); MEAN CELL VOLUME 92.9 FL (80.0-100.0); MEAN CORPUSCULAR HEMOGLOBIN 30.7 PG (27.0-34.0); MEAN CORPUSCULAR HGB CONC 33.1 % (32.0-36.0); MONO % 9.6 % (0.0-8.0); NEUT % 84.2 % (16.0-70.0); PLATELET COUNT 298 TH/MM3 (150-450); RED BLOOD COUNT 3.46 MIL/MM3 (4.50-5.90); RED CELL DISTRIBUTION WIDTH 13.2 % (11.6-17.2); WHITE BLOOD COUNT 19.7 TH/MM3 (4.0-11.0)
[2017-05-01 05:07] LABS: HEMO FLAGS AUTO DIFF
[2017-05-01 05:16] LABS: ANION GAP 6 MEQ/L (5-15); AST (GOT) 167 U/L (15-37); BICARBONATE 32.8 MEQ/L (21.0-32.0); BLOOD UREA NITROGEN 50 MG/DL (7-18); CHLORIDE 106 MEQ/L (98-107); GLOMERULAR FILTRATION RATE 58 ML/MIN (>89); POTASSIUM 4.1 MEQ/L (3.5-5.1); SODIUM (NA) 145 MEQ/L (136-145)
[2017-05-01 05:21] LABS: ALKALINE PHOSPHATASE 212 U/L (45-117); ALT (GPT) 177 U/L (12-78)
[2017-05-01 05:56] LABS: BANDS 4 % (0-6); DOHLE BODIES PRESENT (NONE SEEN); EOSINOPHILS 2 % (0-4); NEUTROPHIL # MANUAL DIFF 17.1 TH/MM3 (1.8-7.7); POLYS (SEG NEUTROPHILS) 83 % (16-70); SCAN/DIFF FINAL DIFF MANUAL; WBC DIFF SAMPLE 100
[2017-05-01 05:57] LABS: PLATELET ESTIMATE SMEAR NORMAL (NORMAL); PLATELET MORPHOLOGY NORMAL (NORMAL)
--- NOTE | 2017-05-01 05:57 | RADRPT ---
EXAM DATE/TIME: 05/01/2017 04:25 [facility] COMPARISON: CHEST SINGLE AP, April 22, 2017, 13:53. INDICATIONS : Respiratory failure. MEDICAL HISTORY : Chronic A-Fib, COPD, HTN, HLD, Colon cancer, CVA 1995, GERD, Melanoma SURGICAL HISTORY : Colon resection, Cholecystectomy ENCOUNTER: Initial ACUITY: 1 day PAIN SCORE: Non-responsive. LOCATION: Bilateral chest FINDINGS: There is patchy bilateral airspace disease left greater right and greatest in the left lower lobe wer e dense consolidation is noted. There may be a small left effusion. Endotracheal tube tip at the infe rior margin of the clavicles. NG tube coiled in the stomach. Old right-sided rib fractures are noted. CONCLUSION: Bilateral airspace disease left greater than right identified and increased in the left lung base. Magnus Marie MD on May 01, 2017 at 5:54 Board Certified Radiologist. This report was verified electronically.
[2017-05-01] MEDS: INSULIN NovoLIN REGULAR SUPPLEMENTAL SCALE SQ SCH ×3 (06:02→17:47)
[2017-05-01] MEDS: ACETAMINOPHEN 325 MG TAB PO PRN (08:42)
[2017-05-01] MEDS: FLUoxetine HCL 10 MG CAP PO SCH (08:42)
[2017-05-01] MEDS: HYDROCHLOROTHIAZIDE 25 MG TAB PO SCH (08:42)
[2017-05-01] MEDS: RIVAROXABAN 20 MG TAB PO SCH (08:42)
[2017-05-01] MEDS: ASPIRIN 81 MG CHEW TAB PO SCH (08:43)
[2017-05-01] MEDS: FAMOTIDINE 20 MG TAB PO SCH ×2 (08:43→21:17)
[2017-05-01] MEDS: DOCUSATE SODIUM 50 MG/SENNA 8.6 MG TAB PO SCH ×2 (08:43→21:00)
[2017-05-01] MEDS: LACTULOSE SYRUP 20 GM/30 ML CUP PO SCH ×2 (08:43→21:00)
[2017-05-01] MEDS: BISACODYL 10 MG SUPP RECTAL SCH (08:44)
[2017-05-01] MEDS: CHLORHEXIDINE 0.12% (ORAL KIT) 15 ML CUP MT SCH ×2 (08:45→20:00)
[2017-05-01] MEDS: POLYETHYLENE GLYCOL 17 GM PKG PO SCH ×2 (08:50→21:00)
[2017-05-01] MEDS: SODIUM CHLORIDE 0.9% FLUSH 10 ML FLUSH IV FLUSH SCH ×2 (09:00→21:00)
[2017-05-01] MEDS ORDERED: PILL SPLITTER OTHER PRN (13:15)
[2017-05-01] MEDS: DOXAZOSIN MESYLATE 2 MG TAB PO SCH (13:17)
--- NOTE | 2017-05-01 15:26 | HHI.CCPN ---
Subjective Remarks/Hospital Course Hospital Course: This is an 82-year-old male. Date of admission 04/22/2017. 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 He presents to [facility] today as a stroke alert. Evaluated by Dr. Kate/neurology. Symptoms included right-sided hemiparesis with a left-sided gaze. Patient was hypertensive and started on nicardipine drip. Given 300 mg aspirin per rectum 1. CT brain revealed chronic ischemic changes including right frontal/parietal and cephalization old right lateral basal ganglia CVA. CT angiogram of the brain revealed occlusion the left MCA at its proximal trifurcation. 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 Patient is brought back intervention radiology for possible stent retrieval Subjective: 04/23: intubated yesterday. still encephalopathic. need to watch carefully, going into swell window. neuro exam stable from yesterday per report. IR yesterday performed with patent MCA flow on angio. no intervention performed. 04/24: no improvements in mental status on sedation vacation. palliative met with family yesterday and they want to be aggressive for a few days and re- evaluate. 04/25: no changes. off sedation x 24h. poor neuro exam. Cr slightly above baseline. uop borderline, but net + every day and clinically appears euvolemic. 04/26: no improvements in mental status off sedation. palliative met with family today and code status changed to DNR/no CPR. family going to meet tonight to talk about withdraw of care. 04/27: no improvements. remains encephalopathic. palliative met again today, family considering withdraw of care. 04/28: more movements today, but not following commands. family does not think patient would want to live fully dependent on medical care. still not awake enough to protect airway, on vent. 04/29: Minimal response and only intermittent. Opens eyes. Does not appear purposeful. Palliative Crae talking with family. 04/30: No change in neurological status, family considering to withdrawal care this weekend. 05/01: encephalopathy persists. family met with hospice today and plan to d/c to hospice tomorrow AM. patient now with leukocytosis and fever, however, discussed with family and we both agree that starting antibiotics is inappropriate and inconsistent with current goals of care which are to transition to comfort tomorrow. Objective Vital Signs Date Time Temp Pulse Resp B/P (MAP) Pulse Ox O2 Delivery O2 Flow Rate FiO2 05/01/17 14:00 92 05/01/17 12:22 96 35 05/01/17 12:00 98.2 16 126/58 (80) 05/01/17 08:00 Mechanical Ventilator Intake and Output 05/01/17 05/01/17 05/02/17 08:00 16:00 00:00 Intake Total 608 ml Output Total 225 ml Balance 383 ml Result Diagram: 05/01/17 0414 05/01/17 0414 Other Results Laboratory Tests Test 05/01/17 04:39 Blood Gas Puncture Site LT RADIAL Blood Gas Patient Temperature 98.6 Blood Gas HCO3 32 mmol/L (22-26) Blood Gas Base Excess 8.2 mmol/L (-2-2) Blood Gas Oxygen Saturation 95 % (90-100) Arterial Blood pH 7.47 (7.380-7.420) Arterial Blood Partial Pressure CO2 45 mmHg (38-42) Arterial Blood Partial Pressure O2 83 mmHg (61-120) Arterial Blood Oxygen Content 16.2 Vol % (12.0-20.0) Arterial Blood Carboxyhemoglobin 1.1 % (0-4) Arterial Blood Methemoglobin 0.9 % (0-2) Blood Gas Hemoglobin 12.1 G/DL (12.0-16.0) Oxygen Delivery Device VENTILATOR Blood Gas Ventilator Setting PRVC16/550/1.0/+5 Blood Gas Inspired Oxygen 35 % Imaging Last Impressions Neck CTA 04/22/17 1026 Signed Impressions: Service Date/Time: March 10:32 - CONCLUSION: No evidence of significant carotid stenosis Obi Macedo MD Head CTA 04/22/17 1026 Signed Impressions: Service Date/Time: March 10:25 - CONCLUSION: Left MCA occlusion. Findings were reported to Dr. Flores and Dr. Kate at 1100 hrs. Obi Macedo MD Head CT 04/22/17 0000 Signed Impressions: Service Date/Time: March 10:25 - CONCLUSION: No acute intracranial findings. Extensive chronic ischemic sequela Obi Macedo MD Objective Remarks GENERAL: elderly male, lying in bed, intubated, encephalopathic. SKIN: Warm and dry. HEAD: Atraumatic. Normocephalic. EYES: Pupils equal and round. No scleral icterus. No injection or drainage. ENT: No nasal bleeding or discharge. Mucous membranes pink and moist. NECK: Trachea midline. Orally intubated. CARDIOVASCULAR: Regular rate and rhythm. RESPIRATORY: intubated, full support. PRVC. GASTROINTESTINAL: Abdomen soft, non-tender, nondistended. no guarding. Bs active. MUSCULOSKELETAL: Extremities without clubbing, cyanosis, or edema. No obvious deformities. Well perfused. NEUROLOGICAL: RASS -3. withdraws to pain. does not follow commands. pupils equal , sluggishly reactive. A/P Assessment and Plan Assessment: 82yM s/p large left MCA CVA. given large distribution of ischemic brain, poor prognosis. unable to be completely intervened upon. continue frequent neuro checks. permissive hypertension. palliative involved. plan to transfer to hospice care facility tomorrow. will not treat new infection at family's request. 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 Kate/neurology CT brain revealed old left frontal/parietal encephalomalacia in bilateral basal ganglia CVA CTA brain revealed occlusion left MCA. right CRM [employer] ADMINISTRATOR CT neck no acute occlusions Dr. Macedo - IR for stent retrieval no thrombus noted Currently on aspirin 81 mg daily. Goal keep systolic blood pressure less than 220/120 2-D echocardiogram: normal LV function. PT/OT/ST evaluate and treat haldol 5mg iv q4h prn for agitation minimize as many sedating meds as possible. prop or fent drips only as needed for sedation/agitation not controlled with haldol. CV: Hypertensive emergency History of hypertension Dyslipidemia Coronary artery disease - nonobstructive Atrial fibrillation - currently rate controlled Heart catheterization 07/[address] Mejía revealed EF 60%. Nonobstructive coronary artery disease. Home medications include losartan 50 mg twice a day and hydrochlorothiazide 25 mg daily for hypertension Home medication is atorvastatin 40 mg daily for dyslipidemia Continue aspirin by mouth daily Resp: History COPD Acute hypoxic and hypercarbic respiratory failure - persistent. wean fio2 for goal spo2 > 90% daily sbt's neurological condition allows no extubation until mental status improves. intubated 04/22 for declining mental status and hypoxia. PT consults. OOB to stretcher chair until comfort care measures only in place GI: Gastroesophageal reflux disease History of colon cancer status post resection 2010 Acute protein calorie malnutrition- severe. Constipation - resolved. DHT. on TFs. On famotidine 20 mg by mouth twice a day for gastroesophageal reflux disease having daily BMs on increased regimen. continue. : History of ED Urinary retention started cardura 04/23. garza removed 04/27. Endo: Sliding-scale insulin if indicated to maintain euglycemia control 130 to 180 Renal: Chronic kidney disease stage II Creatinine currently within normal limits Monitor urine output Accurate I's and O's Heme: History of melanoma/SCC of the forehead? Recent excision 2 weeks ago Hypercoagulable state on chronic Rivaroxaban - unclear if acquired or inherited PT/PTT elevation Monitor CBC daily. Resume anticoagulation when okay with neurology ID: History of shingles Monitor for infection MSK: PT/OT evaluate and treat FEN: Replace electrolytes as clinically indicated Access - Utilize peripheral IVs Prophylaxis - GI - famotidine - DVT - SCD Overall impression: Chance for meaningful recovery is quite slim and highly unlikely. Butch Sommers MD May 01, 2017 15:26
[2017-05-01] MEDS: ATORVASTATIN 40 MG TAB PO SCH (21:18)
[2017-05-02] VITALS (9 sets, daily range): BP systolic 153–175; BP diastolic 69–77; PULSE 84–104; RESP 21–29; TEMP 99.8–100.7; O2SAT 95–98
[2017-05-02] MEDS: INSULIN NovoLIN REGULAR SUPPLEMENTAL SCALE SQ SCH ×2 (00:14→05:33)
[2017-05-02] MEDS: LABETALOL HCL 100 MG/20 ML VIAL IV PUSH PRN ×2 (03:44→08:35)
[2017-05-02] MEDS: CHLORHEXIDINE GLUCONATE 2 % 1 PACK (2 CLOTHS) TOP SCH (04:00)
[2017-05-02] MEDS: HYDROmorphone HCL PF 1 MG/ML VIAL IV PUSH PRN (05:23)
[2017-05-02] MEDS: HYDROCHLOROTHIAZIDE 25 MG TAB PO SCH (08:05)
[2017-05-02] MEDS: DOCUSATE SODIUM 50 MG/SENNA 8.6 MG TAB PO SCH (08:05)
[2017-05-02] MEDS: FAMOTIDINE 20 MG TAB PO SCH (08:05)
[2017-05-02] MEDS: FLUoxetine HCL 10 MG CAP PO SCH (08:06)
[2017-05-02] MEDS: SODIUM CHLORIDE 0.9% FLUSH 10 ML FLUSH IV FLUSH SCH (08:06)
[2017-05-02] MEDS: ACETAMINOPHEN 325 MG TAB PO PRN (08:06)
[2017-05-02] MEDS: LACTULOSE SYRUP 20 GM/30 ML CUP PO SCH (08:06)
[2017-05-02] MEDS: RIVAROXABAN 20 MG TAB PO SCH (08:06)
[2017-05-02] MEDS: ASPIRIN 81 MG CHEW TAB PO SCH (08:06)
[2017-05-02] MEDS: POLYETHYLENE GLYCOL 17 GM PKG PO SCH (08:07)
[2017-05-02] MEDS: BISACODYL 10 MG SUPP RECTAL SCH (08:10)
[2017-05-02] MEDS: CHLORHEXIDINE 0.12% (ORAL KIT) 15 ML CUP MT SCH (08:11)
[2017-05-02] MEDS: DOXAZOSIN MESYLATE 2 MG TAB PO SCH (08:14)
[2017-05-02] MEDS ORDERED: MORPHINE SULFATE 8 MG/ML INJ IV PUSH ONE (09:30)
[2017-05-02] MEDS ORDERED: MIDAZOLAM HCL 5 MG/ML VIAL (1 ML) IV PUSH ONE (09:30)
--- NOTE | 2017-05-02 09:35 | HHI.DS ---
Discharge Summary Admission Date Apr 22, 2017 at 11:36 Discharge Date: May 02, 2017 Admitting Diagnosis Acute Left MCA Stroke (1) Arterial ischemic stroke, MCA (middle cerebral artery), left,acute ICD Code: I63.512 - Cerebral infarction due to unspecified occlusion or stenosis of left middle cerebral artery Diagnosis: Principal Status: Acute (2) Hypertensive emergency without congestive heart failure ICD Code: I16.1 - Hypertensive emergency Diagnosis: Principal (3) Chronic kidney disease, stage II (mild) ICD Code: N18.2 - Chronic kidney disease, stage 2 (mild) Diagnosis: Secondary (4) Anxiety ICD Code: F41.9 - Anxiety disorder, unspecified Diagnosis: Secondary (5) Erectile dysfunction ICD Code: N52.9 - Male erectile dysfunction, unspecified Diagnosis: Secondary (6) Gastroesophageal reflux disease ICD Code: K21.9 - Gastro-esophageal reflux disease without esophagitis Diagnosis: Secondary (7) History of colon cancer ICD Code: Z85.038 - Personal history of other malignant neoplasm of large intestine Diagnosis: Secondary (8) Normocytic anemia ICD Code: D64.9 - Anemia, unspecified Diagnosis: Secondary (9) History of CVA with residual deficit ICD Code: I69.30 - Unspecified sequelae of cerebral infarction Diagnosis: Secondary (10) COPD (chronic obstructive pulmonary disease) ICD Code: J44.9 - Chronic obstructive pulmonary disease, unspecified Diagnosis: Secondary (11) Elevated partial thromboplastin time (PTT) ICD Code: R79.1 - Abnormal coagulation profile Diagnosis: Principal (12) Elevated INR ICD Code: R79.1 - Abnormal coagulation profile Diagnosis: Principal (13) Dyslipidemia ICD Code: E78.5 - Hyperlipidemia, unspecified Diagnosis: Principal (14) Hypercoagulable state, primary ICD Code: D68.59 - Other primary thrombophilia Diagnosis: Principal (15) Coronary artery disease ICD Code: I25.10 - Atherosclerotic heart disease of solomon coronary artery without angina pectoris Diagnosis: Secondary Brief History This is an 82-year-old male. Date of admission 04/22/2017. 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 He presents to [facility] today as a stroke alert. Evaluated by Dr. Kate/neurology. Symptoms included right-sided hemiparesis with a left-sided gaze. Patient was hypertensive and started on nicardipine drip. Given 300 mg aspirin per rectum 1. CT brain revealed chronic ischemic changes including right frontal/parietal and cephalization old right lateral basal ganglia CVA. CT angiogram of the brain revealed occlusion the left MCA at its proximal trifurcation. 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 Patient is brought back intervention radiology for possible stent retrieval CBC/BMP: 05/01/17 0414 05/01/17 0414 Significant Findings Laboratory Tests Test 04/30/17 04:58 05/01/17 04:14 05/01/17 04:39 White Blood Count 16.2 TH/MM3 (4.0-11.0) 19.7 TH/MM3 (4.0-11.0) Red Blood Count 3.44 MIL/MM3 (4.50-5.90) 3.46 MIL/MM3 (4.50-5.90) Hemoglobin 10.8 GM/DL (13.0-17.0) 10.6 GM/DL (13.0-17.0) Hematocrit 31.8 % (39.0-51.0) 32.1 % (39.0-51.0) Blood Urea Nitrogen 44 MG/DL (7-18) 50 MG/DL (7-18) Random Glucose 124 MG/DL (74-106) 167 MG/DL (74-106) Estimat Glomerular Filtration Rate 69 ML/MIN (>89) 58 ML/MIN (>89) Neutrophils (%) (Auto) 84.2 % (16.0-70.0) Lymphocytes (%) (Auto) 3.9 % (9.0-44.0) Monocytes (%) (Auto) 9.6 % (0.0-8.0) Neutrophils # (Auto) 16.5 TH/MM3 (1.8-7.7) Lymphocytes # (Auto) 0.8 TH/MM3 (1.0-4.8) Monocytes # (Auto) 1.9 TH/MM3 (0-0.9) Neutrophils % (Manual) 83 % (16-70) Lymphocytes % 3 % (9-44) Neutrophils # (Manual) 17.1 TH/MM3 (1.8-7.7) Dohle Bodies PRESENT (NONE SEEN) Albumin 2.0 GM/DL (3.4-5.0) Magnesium Level 3.0 MG/DL (1.5-2.5) Alkaline Phosphatase 212 U/L (45-117) Aspartate Amino Transf (AST/SGOT) 167 U/L (15-37) Alanine Aminotransferase (ALT/SGPT) 177 U/L (12-78) Carbon Dioxide Level 32.8 MEQ/L (21.0-32.0) Blood Gas HCO3 32 mmol/L (22-26) Blood Gas Base Excess 8.2 mmol/L (-2-2) Arterial Blood pH 7.47 (7.380-7.420) Arterial Blood Partial Pressure CO2 45 mmHg (38-42) Imaging Last Impressions Chest X-Ray 05/01/17 0600 Signed Impressions: Service Date/Time: Monday, May 01, 2017 04:25 - CONCLUSION: Bilateral airspace disease left greater than right identified and increased in the left lung base. Magnus Marie MD Neck CTA 04/22/17 1026 Signed Impressions: Service Date/Time: March 10:32 - CONCLUSION: No evidence of significant carotid stenosis Obi Macedo MD Head CTA 04/22/17 1026 Signed Impressions: Service Date/Time: March 10:25 - CONCLUSION: Left MCA occlusion. Findings were reported to Dr. Flores and Dr. Kate at 1100 hrs. Obi Macedo MD Head CT 04/22/17 0000 Signed Impressions: Service Date/Time: March 10:25 - CONCLUSION: No acute intracranial findings. Extensive chronic ischemic sequela Obi Macedo MD Cerebral Arteriogram 04/22/17 0000 Signed Impressions: Service Date/Time: March 11:10 - CONCLUSION: Interval spontaneous recanalization of middle cerebral artery occlusion. Catheter directed stroke therapy was not required. Obi Macedo MD ADDENDUM: The cerebral circulation was TICI-2b Keron Mathis MD Brain MRI 04/22/17 0000 Signed Impressions: Service Date/Time: March 21:14 - CONCLUSION: 1. There is acute infarction involving the posterior left frontal, left temporal, and left parietal lobes. The area of acute infarction involves the left basal ganglia and the left caudate head. 2. Increased signal throughout the cerebral and pontine white matter likely secondary to small vessel ischemic change. 3. Right parietal encephalomalacia. Obi Live MD PE at Discharge gen: frail elderly male, lying in bed, intubated heent: perrl. mmm. neck: no jvd. trachea midline. chest: intubated. unlabored. equal chest rise cv: rrr. abd: soft, nontender, nondistended extr: no edema. neuro: baseline for patient. opens eyes. does not follow commands. intermittently tracks. withdraws on left. out on right. Hospital Course Hospital Course: This is an 82-year-old male. Date of admission 04/22/2017. 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 He presents to [facility] today as a stroke alert. Evaluated by Dr. Kate/neurology. Symptoms included right-sided hemiparesis with a left-sided gaze. Patient was hypertensive and started on nicardipine drip. Given 300 mg aspirin per rectum 1. CT brain revealed chronic ischemic changes including right frontal/parietal and cephalization old right lateral basal ganglia CVA. CT angiogram of the brain revealed occlusion the left MCA at its proximal trifurcation. 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 Patient is brought back intervention radiology for possible stent retrieval Subjective: 04/23: intubated yesterday. still encephalopathic. need to watch carefully, going into swell window. neuro exam stable from yesterday per report. IR yesterday performed with patent MCA flow on angio. no intervention performed. 04/24: no improvements in mental status on sedation vacation. palliative met with family yesterday and they want to be aggressive for a few days and re- evaluate. 04/25: no changes. off sedation x 24h. poor neuro exam. Cr slightly above baseline. uop borderline, but net + every day and clinically appears euvolemic. 04/26: no improvements in mental status off sedation. palliative met with family today and code status changed to DNR/no CPR. family going to meet tonight to talk about withdraw of care. 04/27: no improvements. remains encephalopathic. palliative met again today, family considering withdraw of care. 04/28: more movements today, but not following commands. family does not think patient would want to live fully dependent on medical care. still not awake enough to protect airway, on vent. 04/29: Minimal response and only intermittent. Opens eyes. Does not appear purposeful. Palliative Crae talking with family. 04/30: No change in neurological status, family considering to withdrawal care this weekend. 05/01: encephalopathy persists. family met with hospice today and plan to d/c to hospice tomorrow AM. patient now with leukocytosis and fever, however, discussed with family and we both agree that starting antibiotics is inappropriate and inconsistent with current goals of care which are to transition to comfort tomorrow. 05/02: plan to transfer to hospice facility today. no changes. Pt Condition on Discharge: Guarded Discharge Disposition: Hospice/Med Facility Discharge Instructions DIET: Follow Instructions for: Nothing By Mouth Activities you can perform: Regular-No Restrictions Additional Information Discharge summary < 30 minutes time. Butch Sommers MD May 02, 2017 09:35
== END 2017-05-02 12:23 | disposition hospice, home (50) | DRG 64 ==
LOC: NEPC 10:25 → NEDA 11:36 → N03A 12:47
PROVIDERS: ADMIT Internal Medicine Critical Care Medicine; ATTEND Internal Medicine Critical Care Medicine
PROC: B3171ZZ Fluoroscopy of Left Internal Carotid Artery using Low Osmolar Contrast (ICD-10-PCS; principal; 2017-04-22)
PROC: 5A1955Z Respiratory Ventilation, Greater than 96 Consecutive Hours (ICD-10-PCS; 2017-04-22)
PROC: B41F1ZZ Fluoroscopy of Right Lower Extremity Arteries using Low Osmolar Contrast (ICD-10-PCS; 2017-04-22)
PROC: 0BH18EZ Insertion of Endotracheal Airway into Trachea, Via Natural or Artificial Opening Endoscopic (ICD-10-PCS; 2017-04-22)
DX: I63.512 Cerebral infarction due to unspecified occlusion or stenosis of left middle cerebral artery (principal); J96.02 Acute respiratory failure with hypercapnia; E43 Unspecified severe protein-calorie malnutrition; G93.49 Other encephalopathy; J96.01 Acute respiratory failure with hypoxia; D68.59 Other primary thrombophilia; G81.01 Flaccid hemiplegia affecting right dominant side; I48.2 Chronic atrial fibrillation; J44.9 Chronic obstructive pulmonary disease, unspecified; R47.01 Aphasia; I16.1 Hypertensive emergency; I69.334 Monoplegia of upper limb following cerebral infarction affecting left non-dominant side; I12.9 Hypertensive chronic kidney disease with stage 1 through stage 4 chronic kidney disease, or unspecified chronic kidney disease; F32.9 Major depressive disorder, single episode, unspecified; E78.5 Hyperlipidemia, unspecified; I25.10 Atherosclerotic heart disease of native coronary artery without angina pectoris; R29.717 NIHSS score 17; N18.2 Chronic kidney disease, stage 2 (mild); K21.9 Gastro-esophageal reflux disease without esophagitis; F41.9 Anxiety disorder, unspecified; K59.00 Constipation, unspecified; Z51.5 Encounter for palliative care; N52.9 Male erectile dysfunction, unspecified; R29.810 Facial weakness; R33.9 Retention of urine, unspecified; Z85.038 Personal history of other malignant neoplasm of large intestine; Z79.01 Long term (current) use of anticoagulants; Z85.828 Personal history of other malignant neoplasm of skin; Z85.820 Personal history of malignant melanoma of skin; Z79.82 Long term (current) use of aspirin; Z87.891 Personal history of nicotine dependence; Z88.0 Allergy status to penicillin; Z86.19 Personal history of other infectious and parasitic diseases
CPT/HCPCS: 31500; 36223; 36224; 36600; 70450; 70496; 70498; 70551; 71010; 76937; 80048; 80053; 80061; 82435; 82550; 82565; 82805; 82947; 82948; 83036; 83605; 83735; 84100; 84132; 84295; 84443; 84484; 84520; 85007; 85025; 85027; 85384; 85610; 85730; 86850; 86900; 86901; 87641; 93005; 93306; 94002; 94003; 94640; 95819; 96374; C1760; C1769; C1887; C1894; G0269; J0360; J1170; J1630; J2060; J2250; J2270; J3010; J3411; J7030; J7040; J7050; J7613; Q2009; Q9967